=== PATIENT | male | born 1955 | race Caucasian/White ===

== ENCOUNTER 2020-03-25 13:36 | Emergency (ER) | payer OTHER, SELFPAY ==
--- NOTE | ~2020-03-25 | XR_ITS ---
XR tibia fibula RT 2V 03/25/2020 14:11 INDICATION: Right leg pain after injury PROCEDURE: 2 views right tibia/fibula COMPARISON: No prior studies for comparison. FINDINGS: Fracture, dislocation or subluxation is not identified. There are degenerative changes of t he right knee and ankle. The soft tissues appear within normal limits. No foreign bodies are identif ied. IMPRESSION: 1: NO ACUTE BONE OR JOINT ABNORMALITY IDENTIFIED. Reviewed, dictated and finalized at location A.
--- NOTE | ~2020-03-25 | XR_ITS ---
XR forearm RT 2V, XR wrist RT min 3V 03/25/2020 14:11 Indication: Right arm and wrist pain after injury Procedure: 2 views right forearm and 4 views right wrist Comparison: No prior studies for comparison. Findings: There are mild degenerative changes of the first CMC, MCP and IP joints as well as the brigida caphe joint. Arterial calcifications are noted. There are mild degenerative changes of the elbow. No acute fracture or traumatic malalignment. No foreign bodies. Impression: 1: No acute fracture. Reviewed, dictated and finalized at location A. Impression: 1: No acute fracture. Impression: 1: No acute fracture.
[2020-03-25 13:45] VITALS: BP 111/74; PULSE 90; RESP 20; TEMP 36.7; O2SAT 94
--- NOTE | 2020-03-25 14:00 | ED.UPPEXIN ---
HPI - Extremity Injury (Upper) General Chief Complaint: Extremity Injury, Upper <Zuri Espinosa PA-C - Last Filed: 03/25/20 17:30> Stated Complaint: R arm/leg injury <LIS Leblanc Last Filed: 03/25/20 17:30> Time Seen by Provider: 03/25/20 13:47 <LIS Leblanc Last Filed: 03/25/20 17:30> Source: patient <LIS Leblanc Last Filed: 03/25/20 17:30> Mode of arrival: ambulatory <LIS Leblanc Last Filed: 03/25/20 17:30> Limitations: no limitations <LIS Leblanc Last Filed: 03/25/20 17:30> History of Present Illness HPI narrative: This is a 64 year old male that presents to the ER for a fall today. Reports he was helping doing some work on a deck. Reports he tripped and fell and landed on his right side. Reports abrasions to the right forearm and right constantino. Reports he is up to date on tetanus. Denies hitting his head or loss of consciousness. Reports some pain in the right lower leg due to the abrasion. Otherwise denies any other joint pain. Denies numbness or decreased ROM. <Zuri Espinosa PA-C - Last Filed: 03/25/20 17:30> Related Data Allergies/Adverse Reactions: Allergies Allergy/AdvReac Type Severity Reaction Status Date / Time cyclobenzaprine Allergy Unknown Other Verified 03/25/20 13:45 <LIS Leblanc Last Filed: 03/25/20 17:30> [facility] Social History Social History: Social History Gender identity (if verbalized by the patient): Male <LIS Leblanc Last Filed: 03/25/20 17:30> Course Vital Signs Vital signs: Vital Signs Temperature 98.1 F 03/25/20 13:45 Pulse Rate 90 03/25/20 13:45 Respiratory Rate 20 03/25/20 13:45 Blood Pressure 111/74 03/25/20 13:45 Pulse Oximetry 94 03/25/20 13:45 Temperature 98.1 F 03/25/20 13:45 Pulse Rate 90 03/25/20 13:45 Respiratory Rate 20 03/25/20 13:45 Blood Pressure 111/74 03/25/20 13:45 Pulse Oximetry 94 03/25/20 13:45 <Zuri Espinosa PA-C - Last Filed: 03/25/20 17:30> Vital Signs Temperature 98.1 F 03/25/20 13:45 Pulse Rate 90 03/25/20 13:45 Respiratory Rate 20 03/25/20 13:45 Blood Pressure 111/74 03/25/20 13:45 Pulse Oximetry 94 03/25/20 13:45 Temperature 98.1 F 03/25/20 13:45 Pulse Rate 90 03/25/20 13:45 Respiratory Rate 20 03/25/20 13:45 Blood Pressure 111/74 03/25/20 13:45 Pulse Oximetry 94 03/25/20 13:45 <Gisell Joseph MD - Last Filed: 03/30/20 19:02> MDM - Extremity Injury (Upper) MDM Narrative Medical decision making narrative: Patient presents the emergency department after a ground-level fall today with abrasions to the right forearm and right constantino. Patient's vitals are normal. Denies hitting his head or loss of consciousness. Right forearm, right wrist, and right tib-fib x-ray without acute abnormalities. Patient reports he is up-to-date on tetanus. His wounds were cleansed and bandaged. Patient was educated on wound care. He is to follow-up with primary care doctor. He was given warnings to return to the ER <Zuri Espinosa PA-C - Last Filed: 03/25/20 17:30> Imaging Data Radiologist's impression: ITS Impressions Forearm X-Ray 03/25/20 14:22 Impression: 1: No acute fracture. Wrist X-Ray 03/25/20 14:22 Impression: 1: No acute fracture. Tibia/Fibula X-Ray 03/25/20 14:26 IMPRESSION: 1: NO ACUTE BONE OR JOINT ABNORMALITY IDENTIFIED. <Zuri Espinosa PA-C - Last Filed: 03/25/20 17:30> Critical Care Time Critical Care Time Critical Care Time: No <Zuri Espinosa PA-C - Last Filed: 03/25/20 17:30> Discharge Plan Discharge Clinical Impression: Abrasion of forearm, right, Abrasion, right lower leg, initial encounter <Zuri Espinosa PA-C - Last Filed: 03/25/20 17:30> Patient Disposition: Home, Self-Care <Zuri Espinosa PA-C - Last Filed: 03/25/20 17:30>
--- NOTE | 2020-03-25 15:10 | PC.NURSE ---
Pt skin tears cleansed with sterile saline and dressing supplies brought to bedside for PA to dress.
== END 2020-03-25 15:28 | disposition home or self-care (01) ==
PROVIDERS: Emergency Provider General Practice; PCP Nurse Practitioner Family
DX: S50.811A Abrasion of right forearm, initial encounter (principal); S80.811A Abrasion, right lower leg, initial encounter; E78.5 Hyperlipidemia, unspecified; M10.9 Gout, unspecified; I10 Essential (primary) hypertension; E11.9 Type 2 diabetes mellitus without complications; W01.0XXA Fall on same level from slipping, tripping and stumbling without subsequent striking against object, initial encounter
CPT/HCPCS: 73090; 73110; 73590; 99284; A9270

== ENCOUNTER 2020-05-03 12:55 | Inpatient (IN) | payer OTHER, SELFPAY ==
[2020-05-03] VITALS (25 sets, daily range): BP systolic 90–131; BP diastolic 53–92; PULSE 77–102; RESP 15–31; TEMP 35.8–36.7; O2SAT 92–100; BMI 39.7; BMI 39.8
--- NOTE | ~2020-05-03 | US_ITS ---
EXAMINATION: US renal BI DATE: 05/06/2020 14:21 INDICATION: Acute kidney injury TECHNIQUE: Multiple grayscale and Doppler ultrasound images of the kidneys were obtained. COMPARISON: None. FINDINGS: The right kidney measures 11.5 x 4.9 x 6.0 cm. The left kidney measures 10.1 x 6.0 x 5.3 cm . The kidneys demonstrate normal parenchymal echogenicity. There is no hydronephrosis. The bladder is normal. IMPRESSION: 1. Normal kidneys without hydronephrosis. Reviewed, dictated and finalized at location A.
--- NOTE | ~2020-05-03 | US_ITS ---
EXAMINATION: US venous doppler [facility] DATE: 05/04/2020 14:04 INDICATION: Bilateral lower limb swelling TECHNIQUE: Grayscale ultrasound images without and with compression and Doppler ultrasound images of the bilateral lower extremity veins were obtained. COMPARISON: None. FINDINGS: The visualized portions of right common femoral vein, profunda (deep) femoral vein, femoral vein, pop liteal vein, posterior tibial veins, peroneal veins, gastrocnemius vein and greater saphenous vein ou tflow are patent. The visualized portions of left common femoral vein, profunda femoral vein, femoral vein, popliteal v ein, proximal posterior tibial veins, gastrocnemius vein and greater saphenous vein outflow are paten t. The more distal left posterior tibial and peroneal veins at the calf are unable to be clearly visu alized due to patient body habitus and mild subcutaneous edema. IMPRESSION: 1. No deep venous thrombosis in either lower limb. The left posterior tibial and peroneal veins at t he calf were unable to be definitively identified. Reviewed, dictated and finalized at location A. IMPRESSION: 1. No deep venous thrombosis in either lower limb. The left posterior tibial a nd peroneal veins at the calf were unable to be definitively identified.
--- NOTE | ~2020-05-03 | XR_ITS ---
XR chest 1V portable 05/03/2020 13:30 Indication: Shortness of breath. CHF. Procedure: AP portable chest Comparison: No prior studies for comparison. Findings: Cardiomegaly with interstitial edema. No pleural effusion or pneumothorax. No acute osseous abnormality. Impression: 1: Cardiomegaly with interstitial edema. Reviewed, dictated and finalized at location A. Impression: 1: Cardiomegaly with interstitial edema.
--- NOTE | ~2020-05-03 | XR_ITS ---
EXAMINATION: XR chest 2V DATE: 05/09/2020 14:13 INDICATION: Shortness of breath. TECHNIQUE: Frontal and lateral views of the chest were obtained. COMPARISON: Chest single view 05/03/2020, chest CT 08/11/2018, chest 2 views 03/19/2019 FINDINGS: There is chronic mild elevation of left hemidiaphragm. There are reticular opacities in the mid and lower lung zones. No pleural effusion or pneumothorax. Cardiomegaly is noted. There is mild chronic anterior wedging of multiple vertebral bodies. IMPRESSION: 1. Chronic reticular opacities in the mid and lower lung zones, consistent with chronic interstitial lung disease. 2. Cardiomegaly. Reviewed, dictated and finalized at location A.
--- NOTE | 2020-05-03 13:09 | ECG_ITS ---
Measurements Intervals [place] Rate: 84 P: 13 ID: 165 QRS: 247 QRSD: 197 T: -8 QT: 456 QTc: 541 Interpretive Statements SINUS RHYTHM RIGHT AXIS DEVIATION RIGHT BUNDLE BRANCH BLOCK INFERIOR INFARCT, AGE INDETERMINATE BASELINE WANDER- AVF, V1, V6 ABNORMAL ECG Electronically Signed On 05-03-2020 13:32:19 CDT by Germain Bermeo D.O.
[2020-05-03 13:37] LABS: Basophils Absolute Auto 0.1 K/mm3 (0.0-0.1); Basophils Percent Auto 0.7 % (0.2-1.2); Eosinophils Absolute Auto 0.1 K/mm3 (0-0.3); Eosinophils Percent Auto 0.5 % (0-4.4); Hematocrit 36.7 % (42.0-52.0); Hemoglobin 11.3 g/dL (14.0-18.0); Immature Granulocyte Absolute 0.34 K/mm3 (0.00-0.031); Immature Granulocyte Percent A 2.6 % (0-0.5); Lymphocytes Absolute Auto 1.06 K/mm3 (0.9-3.2); Lymphocytes Percent Auto 8.2 % (18.3-44.2); Mean Corpuscular HGB Conc 30.8 g/dl (32-36); Mean Corpuscular Hemoglobin 30.3 pg (26-34); Mean Corpuscular Volume 98.4 fl (80-100); Mean Platelet Volume 11.5 fl (7.4-10.4); Monocytes Absolute Auto 0.9 K/mm3 (0.1-0.6); Monocytes Percent Auto 6.6 % (2.6-8.5); Neutrophils Absolute Auto 10.5 K/mm3 (1.3-6.7); Neutrophils Percent Auto 81.4 % (45.5-73.1); Nucleated Red Blood Cells Perc 0.2 % (0.0-0.2); Platelet Count Result 230 k/mm3 (150-375); Red Blood Count 3.73 M/mm3 (4.6-6.20); Red Cell Distribution Width 15.3 % (11.5-14.5); White Blood Count 12.9 K/mm3 (4.5-10.0)
[2020-05-03 13:48] LABS: Partial Thromboplastin Time 25.7 SECONDS (22.3-36.8)
[2020-05-03 13:51] LABS: Blood Urea Nitrogen 33 mg/dL (9-20); Calcium 9.1 mg/dL (8.4-10.2); Carbon Dioxide 29 mmol/L (22-30); Chloride 99 mmol/L (98-107); Estimated CRCL calculation 67 ml/min; Estimated Glomerular Filt Rate > 60; Glucose 404 mg/dL (75-110); Potassium 5.4 mmol/L (3.4-5.0); Sodium 136 mmol/L (137-145)
[2020-05-03 13:56] LABS: Alveolar/Arterial O2 Gradient 188.1 mmHg; Base Excess ABG 0.9 mEq/l (+/-2.0); Device NASAL CANNULA; Fractional Inspired Oxygen 44 %; HCO3 ABG 26.7 mEq/l (22.0-26.0); Oxygen Content ABG 14.2 %vol (16.0-22.0); Oxygen Saturation ABG 93.5 % (95.0-100.0); Oxyhemoglobin 90.5 % THb (90.0-100.0); PCO2 ABG 48.2 mmHg (35.0-45.0); PO2 ABG 70.7 mmHg (80.0-100.0); PO2 FiO2 Ratio Arterial Blood 1.61 %; Site Drawn LEFT BRACHIAL; Total Hemoglobin 11.1 g/dL (12.0-18.0); pH ABG 7.362 (7.350-7.450)
[2020-05-03 14:03] LABS: NT Pro B Type Natriuretic Pept 735 PG/ML (5-100); Troponin I 0.031 ng/mL (0.000-0.034)
--- NOTE | 2020-05-03 14:07 | ED.GENADULT ---
HPI - General Adult General Chief complaint: Shortness of Breath/Dyspnea Stated complaint: extremity swelling/SOB Time Seen by Provider: 05/03/20 13:35 Source: patient History of Present Illness HPI narrative: Patient is 64 years old white male complaining of shortness of breath, swelling of legs for the last few days. Patient on chronic oxygen 6 L/min. Patient denies any fever, runny nose, sneezing, sore throat, body aches. Related Data Allergies Allergy/AdvReac Type Severity Reaction Status Date / Time cyclobenzaprine AdvReac Other Verified 05/03/20 13:17 [From Flexeril] Review of Systems Review of Systems: Narrative: CONSTITUTIONAL: Denies fever, chills, or sweats. EYES: Denies visual changes, redness, or discharge. ENT: Denies rhinorrhea, congestion, sore throat, or otalgia. CARDIOVASCULAR: Denies chest pain, palpitations, or edema. RESPIRATORY: Shortness of breath GASTROINTESTINAL: Denies abdominal pain, nausea, vomiting, or diarrhea. GENITOURINARY: Denies dysuria or hematuria. SKIN: Swelling legs MUSCULOSKELETAL: Denies back pain, joint pain, or myalgia. NEUROLOGIC: Denies headache, numbness, or weakness. PSYCHIATRIC: Denies anxiety or depression. [facility] Social History Social History Gender identity (if verbalized by the patient): Male Exam Narrative: Exam Narrative: General appearance: Well-developed, well-nourished Skin: Normal color, brownish discoloration of the lower extremity bilaterally, 2+ edema Head: Normocephalic, nontraumatic Eyes: Clear conjunctiva ENT: Oropharynx normal, ears normal, nose normal Neck: Supple, nontender Chest and respiratory: Airway patent, no respiratory distress, no accessory muscle use Heart: Regular rate/rhythm Abdomen: Soft, nontender, no organomegaly, quiet bowel sounds Vascular: Normal peripheral pulses, normal capillary refill. Musculoskeletal: Normal range of motion, nontender back Neurologic: Alert and oriented ?3, [employer] INSPECTOR is normal as tested, no gross motor deficit Course Course Emergency Course: Unchanged, stable Vital Signs Vital signs: Vital Signs Pulse Rate 89 05/03/20 13:10 Respiratory Rate 24 H 05/03/20 13:10 Blood Pressure 117/92 H 05/03/20 13:10 Pulse Oximetry 93 05/03/20 13:10 Pulse Rate 85 05/03/20 13:17 Respiratory Rate 16 05/03/20 13:17 Blood Pressure 117/92 H 05/03/20 13:10 Pulse Oximetry 97 05/03/20 13:17 Medical Decision Making MDM Narrative Medical decision making narrative: Patient had a history of COPD and congestive heart failure. Coming today with shortness of breath and swelling legs. My concern is COPD exacerbation, pneumonia, CHF. My plan to order labs, chest x-ray, blood gas on 6 L. Further plan to follow Differential Diagnosis Differential Diagnosis: Differential diagnosis: COPD exacerbation, pneumonia, CHF acute kidney injury, anemia. Vital Signs Vital Signs: Vital Signs Pulse Rate 89 05/03/20 13:10 Respiratory Rate 24 H 05/03/20 13:10 Blood Pressure 117/92 H 05/03/20 13:10 Pulse Oximetry 93 05/03/20 13:10 Pulse Rate 85 05/03/20 13:17 Respiratory Rate 16 05/03/20 13:17 Blood Pressure 117/92 H 05/03/20 13:10 Pulse Oximetry 97 05/03/20 13:17 Lab Data Result diagrams: 05/03/20 13:31 05/03/20 13:31 Labs: Lab Results 05/03/20 05/03/20 05/03/20 Range/Units 13:31 13:31 13:31 WBC 12.9 H (4.5-10.0) K/mm3 RBC 3.73 L (4.6-6.20) M/mm3 Hgb 11.3 L (14.0-18.0) g/dL Hct 36.7 L (42.0-52.0) % MCV 98.4 (80-100) fl MCH 30.3 (26-34) pg MCHC 30.8 L (32-36) g/dl RDW 15.3 H (11.5-14.5)
[2020-05-03] MEDS: FUROSEMIDE INJ 40 MG/4 ML VIAL 60 MG IV PUSH (14:33)
[2020-05-03] MEDS: NITROGLYCERIN OINTMENT 1 INCH DOSE TRANSDERM (14:33)
[2020-05-03 15:04] LABS: Alanine Aminotransferase 26 U/L (4-50); Albumin Level 4.1 g/dL (3.5-5.1); Alkaline Phosphatase 69 U/L (38-126); Aspartate Amino Transferase 23 U/L (17-59); Bilirubin,Total 0.4 mg/dL (0.2-1.3)
[2020-05-03 17:04] LABS: Troponin I 0.033 ng/mL (0.000-0.034)
--- NOTE | 2020-05-03 17:47 | ADMGEN ---
This patient, Sam Stephen , was admitted to IMU Room 200-01. Patient/family oriented to hospital policies and general routines including ID bracelet, bed and alarms, visiting hours, pain management, procedures, bathroom and other care routines, personal items, smoking policy, room service/diet, and visiting hours. Valuables list has been completed. Information on how to activate the Rapid Response Team has been discussed. Patient/Family are encouraged to report perceived risks to care and to ask questions if they do not understand what they are told or what they should do.
[2020-05-03 19:53] LABS: Troponin I 0.039 ng/mL (0.000-0.034)
--- NOTE | 2020-05-03 20:04 | PM.IMHP ---
H&P: HPI History of Present Illness Chief complaint: Exacerbation of CHF/COPD Narrative: Sam Stephen Sr is a 64 year old male who has a past medical history of having congestive heart failure with the EF around 30% and COPD as well as obstructive sleep apnea. The patient wears chronic oxygen at 6 L per nasal cannula at home. The patient has been short of breath and has increased swelling to his lower extremities. Patient has ulcerated areas on his lower extremity as well due to injuries. He denies any fever or chills. No cough. The patient always get short of breath with exertion. He wears his oxygen at all times. White count is 12.9. H&H 11.3 and 36.7. PH was normal. CO2 was 48.2 which is slightly high. O2 saturation 93.5%. Potassium was found to be 5.4. Blood glucose was found to be 4 4. Troponin 0.031 and then 0.039. BNP is 735. With interstitial edema. Patient initially was given IV Lasix. Date of service 05/03/2020 Review of Systems Review of Systems: All systems reviewed & are unremarkable except as noted in HPI and below Constitutional: Constitutional: Reports as per HPI and Reports no additional constitutional complaints Eyes: Eyes: Reports as per HPI and Reports no additional eye complaints ENT: Reports system reviewed and no additional complaints, except as documented and Reports Normal hearing present Cardiovascular: Cardiovascular: Reports no additional cardiovascular complaints Respiratory: Respiratory: Reports no additional respiratory complaints and Reports no additional respiratory complaints Gastrointestinal: Gastrointestinal: Reports as per HPI and Reports no additional gastrointestinal complaints Musculoskeletal: Musculoskeletal: Reports no additional musculoskeletal complaints Integumentary/Breasts: Skin/Breast: Reports system reviewed and no additional complaints, except as docu and Reports as per HPI Neurologic: Reports system reviewed and no additional complaints, except as documented, Reports as per HPI and Reports Normal hearing present Psychiatric: Psychiatric: Reports no additional psychiatric complaints and Reports as per HPI Endocrine: Endocrine: Reports no additional endocrine complaints Hematologic/Lymphatic: Hematologic/Lymphatic: Reports no additional hematologic/lymphatic complaints Allergic/Immunologic: Allergic/Immunologic: Reports no additional allergic/immunologic complaints [facility] Past Medical History Medical History (Updated 05/03/20 @ 20:17 by Lakia Raya NP) CAD (coronary artery disease) Non STEMI May 2007 Chronic respiratory failure with hypoxia and hypercapnia Congestive heart failure Mixed grade 1 diastolic and EF around 35%. COPD (chronic obstructive pulmonary disease) DM2 (diabetes mellitus, type 2) History of DVT (deep vein thrombosis) Left leg June 21, 2018. HTN (hypertension) with goal to be determined Hyperlipidemia Obstructive sleep apnea Pilonidal cyst Extracted Surgical History Surgical History (Updated 05/03/20 @ 20:17 by Lakia Raya NP) H/O cardiac catheterization 2006 H/O elbow surgery On the left H/O laminectomy 2002 Family History Family History (Updated 05/03/20 @ 20:20 by Lakia Raya NP) Sibling Congestive heart failure Mother Heart disease Hypertension Father Heart disease Emphysema of lung Social History Social History (Updated 05/03/20 @ 20:21 by Lakia Raya NP) Social History: The patient is . 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 So is a DNR. His daughter yanet Rodriguez is a durable power assistant district attorney for healthcare. According to old records he used to drink anywhere from 30-20 beers a week any states he does not do that anymore. The patient smoked up to 2 packs of cigarettes a day for greater than 40 years. He stated that he has quit smoking. 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
[2020-05-03] MEDS: ZOLPIDEM TARTRATE 5 MG TABLET 10 MG PO (20:50)
[2020-05-03] MEDS: DICLOFENAC SOD 75 MG TABLET.EC PO (22:31)
[2020-05-04] VITALS (16 sets, daily range): BP systolic 102–118; BP diastolic 57–90; PULSE 67–86; RESP 12–21; TEMP 36.1–36.7; O2SAT 95–100
--- NOTE | 2020-05-04 | ECHO_ITS ---
Patient Info Name: Sam Stephen Age: 64 years : 1955 Gender: Male Ht: 67 in Wt: 254 lbs BSA: 2.39 m2 HR: 79 bpm BP: 104 / 57 mmHg Heart Rhythm: Sinus Rhythm Technical Quality: Good Exam Date: 05/04/2020 9:18 AM Exam Location: [facility] Patient Status: Outpatient Admit Date: 05/03/2020 Staff Ordering Physician: Lakia Raya NP Director [facility]: [facility], RT Attending Provider: Zonia Bear PA-C Referring Physician: Dorota ZAVALA; Exam Type: CA echo dop color flow w con Study Info Indications I50.9 - Heart failure, unspecified Complete two-dimensional, color flow and Doppler transthoracic echocardiogram is performed with contrast to opacify the left ventricle and to improve the deliniation of the left ventricle endocardial borders. Summary 1. Left ventricular chamber dimension is mildly enlarged. 2. Left ventricular systolic function is moderately reduced, estimated at 35-40%. 3. There is moderately increased left ventricular wall thickness. 4. The left ventricular diastolic function is grade I diastolic dysfunction. 5. Cannot exclude wall motion abnormalities. 6. Right ventricular chamber dimension is mildly enlarged. 7. Left atrial chamber dimension is mildly enlarged. 8. Right atrial chamber dimension is moderately enlarged. 9. The aortic valve is bicuspid. 10. There is mild aortic valve stenosis with a peak velocity of 183.59 cm/s, mean gradient of 7 mmHg, and aortic valve area of 1.83 cm2. 11. The mitral valve has thickened leaflets and calcified annulus. 12. There is mild mitral valve regurgitation. 13. There is mild tricuspid valve regurgitation. 14. Mild pulmonary hypertension, estimated pulmonary arterial systolic pressure is 44 mmHg. Left Ventricle Left ventricular chamber dimension is mildly enlarged. Left ventricular systolic function is moderately reduced, estimated at 35-40%. There is moderately increased left ventricular wall thickness. The left ventricular diastolic function is grade I diastolic dysfunction. Cannot exclude wall motion abnormalities. Right Ventricle Right ventricular chamber dimension is mildly enlarged. Right ventricular systolic function is normal. Left Atria Left atrial chamber dimension is mildly enlarged. Right Atria Right atrial chamber dimension is moderately enlarged. Atrial Septum Intact interatrial septum visualized by color flow imaging. Aortic Valve The aortic valve is bicuspid. There is mild aortic valve stenosis with a peak velocity of 183.59 cm/s, mean gradient of 7 mmHg, and aortic valve area of 1.83 cm2. There is trace aortic valve regurgitation. There is mild aortic valve calcification. Pulmonic Valve The pulmonic valve is not well visualized. There is no pulmonic valve stenosis. There is trace pulmonic regurgitation. Mitral Valve The mitral valve has thickened leaflets and calcified annulus. There is no mitral valve stenosis. There is mild mitral valve regurgitation. Tricuspid Valve The tricuspid valve leaflets are normal. There is no significant tricuspid valve stenosis. There is mild tricuspid valve regurgitation. Mild pulmonary hypertension, estimated pulmonary arterial systolic pressure is 44 mmHg. Pericardium/Pleural The pericardium appears normal. There is small pericardial effusion. Aorta The aortic root size at the sinus of Valsalva is mildly dilated. The prox ascending aorta size is normal. The abdominal aorta size is not well
[2020-05-04 04:41] LABS: Basophils Absolute Auto 0.1 K/mm3 (0.0-0.1); Basophils Percent Auto 0.9 % (0.2-1.2); Eosinophils Absolute Auto 0.2 K/mm3 (0-0.3); Eosinophils Percent Auto 1.6 % (0-4.4); Hematocrit 33.9 % (42.0-52.0); Hemoglobin 10.4 g/dL (14.0-18.0); Immature Granulocyte Absolute 0.37 K/mm3 (0.00-0.031); Immature Granulocyte Percent A 3.2 % (0-0.5); Lymphocytes Absolute Auto 2.37 K/mm3 (0.9-3.2); Lymphocytes Percent Auto 20.6 % (18.3-44.2); Mean Corpuscular HGB Conc 30.7 g/dl (32-36); Mean Corpuscular Hemoglobin 30.1 pg (26-34); Mean Platelet Volume 11.4 fl (7.4-10.4); Monocytes Percent Auto 8.6 % (2.6-8.5); Neutrophils Absolute Auto 7.5 K/mm3 (1.3-6.7); Neutrophils Percent Auto 65.1 % (45.5-73.1); Nucleated Red Blood Cells Perc 0.2 % (0.0-0.2); Platelet Count Result 204 k/mm3 (150-375); Red Blood Count 3.46 M/mm3 (4.6-6.20); White Blood Count 11.5 K/mm3 (4.5-10.0)
[2020-05-04 04:48] LABS: Hemoglobin A1C 9.6 % (<5.7)
[2020-05-04 04:54] LABS: Blood Urea Nitrogen 37 mg/dL (9-20); Calcium 8.5 mg/dL (8.4-10.2); Carbon Dioxide 32 mmol/L (22-30); Chloride 99 mmol/L (98-107); Estimated CRCL calculation 58 ml/min; Estimated Glomerular Filt Rate 51; Glucose 197 mg/dL (75-110); Phosphorus 4.8 mg/dL (2.5-4.5); Potassium 4.2 mmol/L (3.4-5.0); Sodium 135 mmol/L (137-145)
[2020-05-04 08:09] LABS: Glucose Point of Care 260 (65-105)
[2020-05-04] MEDS: ATORVASTATIN 20 MG TABLET PO (08:09)
[2020-05-04] MEDS: METOPROLOL SUCCINATE EXT REL 25 MG TABCR PO (08:09)
[2020-05-04] MEDS: FUROSEMIDE INJ 40 MG/4 ML VIAL IV PUSH ×2 (08:09→17:20)
[2020-05-04] MEDS: allopurinoL 100 MG TABLET PO ×2 (08:09→17:20)
[2020-05-04] MEDS: predniSONE 10 MG TABLET PO (08:09)
[2020-05-04] MEDS: FERROUS SULFATE 324 MG TABLET PO (08:09)
[2020-05-04] MEDS: INSULIN ASPART (*BKC) 100 UNITS/ML SUB-Q ×3 (08:10→17:20)
[2020-05-04] MEDS: PERFLUTREN LIPID MICROSPHERES 1.5 ML VIAL DILUTED TO 10 ML TOTAL VOLUME IV PUSH (09:55)
[2020-05-04] MEDS: SILVERGEL (ELTA) 45 ML 1 APPLIC TOPICAL (10:30)
[2020-05-04 12:18] LABS: Glucose Point of Care 375 (65-105)
--- NOTE | 2020-05-04 15:28 | PM.IMPN ---
Progress Note: A&P Assessment and Plan (1) Congestive heart failure: Code(s): I50.9 - Heart failure, unspecified Status: Chronic Assessment and Plan: -----acute on chronic systolic heart failure. The patient has had a negative fluid balance today. Will place on fluid restriction and continue 40 mg of Lasix b.i.d.. Does not show any significant changes from the prior. He has systolic and diastolic CHF. It does not sound like he adheres to a low-salt diet. Continue O2 (2) Chronic respiratory failure with hypoxia and hypercapnia: Code(s): J96.11 - Chronic respiratory failure with hypoxia; J96.12 - Chronic respiratory failure with hypercapnia Status: Chronic Assessment and Plan: -------The patient chronically wears oxygen at 6 L per nasal cannula. Continue O2 and CPAP when he sleeps. (3) Obstructive sleep apnea: Code(s): G47.33 - Obstructive sleep apnea (adult) (pediatric) Status: Chronic Assessment and Plan: ------The patient brought his own tubing in his nasal pillow. Continue with CPAP. (4) HTN (hypertension) with goal to be determined: Code(s): I10 - Essential (primary) hypertension Status: Chronic Assessment and Plan: -----last blood pressure 118/65. Continue metoprolol and Lasix (5) Hyperlipidemia: Code(s): E78.5 - Hyperlipidemia, unspecified Status: Chronic Assessment and Plan: ------Continue with atorvastatin. (6) COPD (chronic obstructive pulmonary disease): Code(s): J44.9 - Chronic obstructive pulmonary disease, unspecified Status: Chronic Assessment and Plan: ------Patient has interstitial lung disease and he is on mycophenolate which is non formulary and I instructed the patient he can have somebody bring it in. He is also on prednisone, this can cause swelling but does not seem to be the cause since he has been on this for awhile (7) CAD (coronary artery disease): Code(s): I25.10 - Atherosclerotic heart disease of [place] coronary artery without angina pectoris Status: Chronic Assessment and Plan: -----no chest pain at this time. Troponins reviewed. No ACS suspected (8) DM2 (diabetes mellitus, type 2): Code(s): E11.9 - Type 2 diabetes mellitus without complications Status: Chronic Assessment and Plan: -----patient thought he was prediabetic and is surprised by his A1c. We briefly spoke about diabetes and had manage it but he does not seem to understand. I will ask the diabetes educated to see him. I have started him on 10 of Lantus which may need to be increased. For now, will do moderate sliding scale. He is usually on metformin 500 mg b.i.d.. I suspect he will be discharged with a higher dose but we will make sure his kidneys are within range. May consider adding a 2nd agent. (9) Neuropathy: Code(s): G62.9 - Polyneuropathy, unspecified Status: Acute Assessment and Plan: -----the pain in his feet sound consistent with neuropathy. Will start gabapentin and work on glucose control. He was educated about foot checks and should follow-up with his primary care physician as he may need an increase in his gabapentin dose eventually. Time Spent With Patient Time with patient: 25 - 35 minutes Subjective Date/time seen: 05/04/20 15:28 Interval history: Pt is a 64-year-old male here for CHF exacerbation and lower extremity pain. Patient was seen today and states his pain and swelling has not really improved. He states that the pain in his legs is constant and his sensation is decreased as well. He has never been diagnosed with neuropathy but after explaining neuropathy, he thinks that is might be what's going on. He also mentions that his right hand has been swelling as well as his abdomen. His scrotum has not swelled up which she usually does when he is in CHF exacerbation. The patient told
[2020-05-04] MEDS: GABAPENTIN 300 MG CAPSULE PO (17:19)
[2020-05-04] MEDS: DICLOFENAC SOD 75 MG TABLET.EC PO (17:23)
[2020-05-04 17:35] LABS: Add Urine Microscopic? YES; Appearance Urine Clear (Clear); Bilirubin Urine Negative (Negative); Blood Urine Negative (Negative); Color Urine Yellow (Yellow); Glucose Urine UA 3+ mg/dL (Negative); Ketones Urine Negative (Negative); Leukocyte Esterase Ur Negative LEU/UL (Negative); Mucus Urine Rare /lpf; Nitrate Urine Negative (Negative); Protein Urine Negative (Negative); RBC Urine 0-2 /hpf (0-2); Specific Grav Ur 1.016 (1.001-1.035); Urobilinogen Urine Negative mg/dL (<2.0)
--- NOTE | 2020-05-04 18:25 | PC.NURSE ---
This patient, Sam Stephen Sr., was transferred to [facility] on 05/04/20 at 1825. Personal belongings sent with patient. Report given to ABEL Montenegro. Appropriate documentation sent with patient.
--- NOTE | 2020-05-04 18:33 | PC.NURSE ---
Transfer from IMU on today,No complaints voiced. Instructed to call for assistance as needed,call light in reach. Oriented to unit.
[2020-05-04] MEDS: INSULIN GLARGINE (*BKC) 100 UNITS/ML 10 UNITS SUB-Q (20:37)
[2020-05-04 20:40] LABS: Glucose Point of Care 308 (65-105)
[2020-05-04 20:45] LABS: Glucose Point of Care 268 (65-105)
[2020-05-04] MEDS: ZOLPIDEM TARTRATE 5 MG TABLET 10 MG PO (22:17)
[2020-05-05] VITALS (15 sets, daily range): BP systolic 92–115; BP diastolic 58–81; PULSE 72–96; RESP 16–22; TEMP 36.4–37.1; O2SAT 93–99; BMI 39.7
[2020-05-05 04:48] LABS: Hematocrit 35.1 % (42.0-52.0); Hemoglobin 10.9 g/dL (14.0-18.0); Mean Corpuscular HGB Conc 31.1 g/dl (32-36); Mean Corpuscular Hemoglobin 30.3 pg (26-34); Mean Corpuscular Volume 97.5 fl (80-100); Platelet Count Result 189 k/mm3 (150-375)
[2020-05-05 05:02] LABS: Blood Urea Nitrogen 42 mg/dL (9-20); Calcium 8.4 mg/dL (8.4-10.2); Carbon Dioxide 34 mmol/L (22-30); Chloride 97 mmol/L (98-107); Estimated CRCL calculation 51 ml/min; Estimated Glomerular Filt Rate 44; Glucose 208 mg/dL (75-110); Magnesium 2.1 mg/dL (1.6-2.3); Phosphorus 5.1 mg/dL (2.5-4.5); Potassium 4.4 mmol/L (3.4-5.0); Sodium 135 mmol/L (137-145)
[2020-05-05 07:58] LABS: Glucose Point of Care 188 (65-105)
[2020-05-05] MEDS: FERROUS SULFATE 324 MG TABLET PO (09:00)
[2020-05-05] MEDS: SILVERGEL (ELTA) 45 ML 1 APPLIC TOPICAL (09:00)
[2020-05-05] MEDS: DICLOFENAC SOD 75 MG TABLET.EC PO ×2 (09:00→17:12)
[2020-05-05] MEDS: FUROSEMIDE INJ 40 MG/4 ML VIAL IV PUSH ×2 (09:01→17:12)
[2020-05-05] MEDS: predniSONE 10 MG TABLET PO (09:01)
[2020-05-05] MEDS: ATORVASTATIN 20 MG TABLET PO ×2 (09:01→13:45)
[2020-05-05] MEDS: GABAPENTIN 300 MG CAPSULE PO ×3 (09:01→21:03)
[2020-05-05] MEDS: allopurinoL 100 MG TABLET PO ×2 (09:01→17:11)
[2020-05-05] MEDS: METOPROLOL SUCCINATE EXT REL 25 MG TABCR PO ×2 (09:02→13:45)
--- NOTE | 2020-05-05 10:37 | PM.IMPN ---
Progress Note: A&P Assessment and Plan (1) Congestive heart failure: Code(s): I50.9 - Heart failure, unspecified Status: Chronic Assessment and Plan: -----acute on chronic systolic heart failure. The patient has had a negative fluid balance today but still very swollen. His kidney function is worsening as well so I am going to ask Nephrology their recommendations on further diuretic therapy. I have also consult to cardiology due to him having nonsustained V-tach. The patient is a DNR, but may want to discuss these findings with Cardiology. Continue fluid restriction and Lasix at this time. Echo Does not show any significant changes from the prior. He has systolic and diastolic CHF. It does not sound like he adheres to a low-salt diet. Continue O2 (2) Chronic respiratory failure with hypoxia and hypercapnia: Code(s): J96.11 - Chronic respiratory failure with hypoxia; J96.12 - Chronic respiratory failure with hypercapnia Status: Chronic Assessment and Plan: -------The patient chronically wears oxygen at 6 L per nasal cannula. Continue O2 and CPAP when he sleeps. (3) Obstructive sleep apnea: Code(s): G47.33 - Obstructive sleep apnea (adult) (pediatric) Status: Chronic Assessment and Plan: ------The patient brought his own tubing in his nasal pillow. Continue with CPAP. (4) HTN (hypertension) with goal to be determined: Code(s): I10 - Essential (primary) hypertension Status: Chronic Assessment and Plan: -----last blood pressure 115/65. Continue metoprolol and Lasix (5) Hyperlipidemia: Code(s): E78.5 - Hyperlipidemia, unspecified Status: Chronic Assessment and Plan: ------Continue with atorvastatin. (6) COPD (chronic obstructive pulmonary disease): Code(s): J44.9 - Chronic obstructive pulmonary disease, unspecified Status: Chronic Assessment and Plan: ------Patient has interstitial lung disease and he is on mycophenolate which is non formulary and I instructed the patient he can have somebody bring it in. He is also on prednisone, this can cause swelling but does not seem to be the cause since he has been on this for awhile (7) CAD (coronary artery disease): Code(s): I25.10 - Atherosclerotic heart disease of [place] coronary artery without angina pectoris Status: Chronic Assessment and Plan: -----no chest pain at this time. Troponins reviewed. No ACS suspected (8) DM2 (diabetes mellitus, type 2): Code(s): E11.9 - Type 2 diabetes mellitus without complications Status: Chronic Assessment and Plan: -----patient thought he was prediabetic and is surprised by his A1c. We briefly spoke about diabetes and had manage it but he does not seem to understand. I will ask the diabetes educated to see him. I have started him on 10 of Lantus which may need to be increased. For now, will do moderate sliding scale. He is usually on metformin 500 mg . I suspect he will be discharged with a higher dose but we will make sure his kidneys are within range. May consider adding a 2nd agent. (9) Neuropathy: Code(s): G62.9 - Polyneuropathy, unspecified Status: Acute Assessment and Plan: -----the pain in his feet felt to be consistent with neuropathy. Will increase gabapentin and work on glucose control. He was educated about foot checks and should follow-up with his primary care physician Subjective Date/time seen: 05/05/20 10:37 Interval history: Pt is a 64-year-old male here for CHF exacerbation and lower extremity pain. Patient was seen today and states his legs are still swollen he still having pain. He has had no additional shortness of breath, no chest pain, no palpitations or lightheadedness/dizziness. He is discouraged because his leg pain has not improved. We talked about gabapentin and how it works and that we ca
[2020-05-05 11:20] LABS: Glucose Point of Care 343 (65-105)
[2020-05-05] MEDS: INSULIN ASPART (*BKC) 100 UNITS/ML SUB-Q ×2 (12:05→18:12)
--- NOTE | 2020-05-05 12:22 | PM.CNCAR ---
Assessment and Plan Assessment and plan (1) CAD (coronary artery disease): Code(s): I25.10 - Atherosclerotic heart disease of [place] coronary artery without angina pectoris Status: Chronic Assessment and Plan: unfortunately previously deemed not a CABG candidate. (2) Nonsustained ventricular tachycardia: Code(s): I47.2 - Ventricular tachycardia Status: Acute Assessment and Plan: will check a free T4 level. Repeat EKG now. I Am going to increase his metoprolol succinate to 50 mg daily. (3) Ischemic cardiomyopathy: Code(s): I25.5 - Ischemic cardiomyopathy Status: Acute Assessment and Plan: continue his meds. I am uncertain as to why he is not on UMER-inhibitor but possibly due to renal function. Will defer this to his primary superintendent police. (4) Congestive heart failure: Code(s): I50.9 - Heart failure, unspecified Status: Chronic Assessment and Plan: Continue diuresis (5) Hyperlipidemia: Code(s): E78.5 - Hyperlipidemia, unspecified Status: Chronic Assessment and Plan: will increase his atorvastatin to 40 mg daily History of Present Illness History of Present Illness Consult date/time: 05/05/20 12:22 Requesting physician: Zonia Bear PA-C Consult reason: Other ( nonsustained ventricular tachycardia) Reason For Visit: Exacerbation of CHF/COPD Narrative: date of service 05/05/2020: Reason for consultation nonsustained ventricular tachycardia History: patient is a 64-year-old male who was admitted to the hospital because of heart failure. He has an ejection fraction which is known to be around 30% and significant coronary disease and COPD with sleep apnea. Reportedly he was supposed to have a bypass surgery above was felt to be too sick and had significant lung issues that prevented him from proceeding with CABG. He follows with Cardiology at [facility]. He was admitted to this hospital because of worsening shortness of breath. He also is having some worsening swelling. Had some ulcerations on his lower extremities. He was initiated on IV diuretics. His edema has not improved significantly.While on campus monitor was noted that he had some episodes of nonsustained ventricular tachycardia. He was asymptomatic at the time. Electrolytes were checked and appropriately replaced. TSH was okay. Echocardiogram was personally reviewed showing ejection fraction 35-40%. He otherwise has been feeling okay and denies any recent chest pain, syncope, presyncope, paroxysmal nocturnal dyspnea or orthopnea. Review of Systems Review of Systems: All systems reviewed & are unremarkable except as noted in HPI and below Constitutional: Constitutional: Denies chills and Reports weakness Eyes: Eyes: Denies blurry vision ENT: Denies Normal hearing present Cardiovascular: Cardiovascular: Denies chest pain and Reports pedal edema Respiratory: Respiratory: Reports dyspnea on exertion Gastrointestinal: Gastrointestinal: Denies abdominal pain Genitourinary: Genitourinary: Denies dysuria Musculoskeletal: Musculoskeletal: Denies neck pain Integumentary/Breasts: Skin/Breast: Reports wounds Neurologic: Denies headache(s) Psychiatric: Psychiatric: Denies anxiety and Denies confusion Endocrine: Endocrine: Denies excessive sweating and Denies fatigue Hematologic/Lymphatic: Hematologic/Lymphatic: Denies easy bleeding and Denies easy bruising Allergic/Immunologic: Allergic/Immunologic: Denies GI upset with certain foods and Denies lip swelling PMFSH Past Medical History Medical History CAD (coronary artery disease) Non STEMI May 2007 Chronic respiratory failure with hypoxia and hypercapnia Congestive heart failure Mixed grade 1 diastolic and EF around 35%. COPD (chronic obstructive pulmonary disease) DM2 (diabetes mellitus, type 2) History of DVT (deep vein t
--- NOTE | 2020-05-05 12:49 | ECG_ITS ---
Measurements Intervals [place] Rate: 83 P: 38 TX: 175 QRS: 265 QRSD: 189 T: 40 QT: 452 QTc: 533 Interpretive Statements SINUS RHYTHM RIGHT AXIS DEVIATION RIGHT BUNDLE BRANCH BLOCK INFERIOR INFARCT, AGE INDETERMINATE ABNORMAL ECG Electronically Signed On 05-05-2020 13:09:11 CDT by Germain Bermeo D.O.
--- NOTE | 2020-05-05 15:00 | PC.NURSE ---
spoke with patient about have family bring in home medications not supplied by our pharmacy. pt states he will have someone bring in meds
[2020-05-05 15:06] LABS: T4 Thyroxine 4.82 ug/dL (5.53-11.0)
--- NOTE | 2020-05-05 15:45 | PM.CNNEP ---
Assessment and Plan Assessment and plan (1) YANELIS (acute kidney injury): Code(s): N17.9 - Acute kidney failure, unspecified Status: Acute (2) CHF exacerbation: Code(s): I50.9 - Heart failure, unspecified Status: Acute (3) Ischemic cardiomyopathy: Code(s): I25.5 - Ischemic cardiomyopathy Status: Acute (4) Nonsustained ventricular tachycardia: Code(s): I47.2 - Ventricular tachycardia Status: Acute (5) COPD (chronic obstructive pulmonary disease): Code(s): J44.9 - Chronic obstructive pulmonary disease, unspecified Status: Chronic (6) Obstructive sleep apnea: Code(s): G47.33 - Obstructive sleep apnea (adult) (pediatric) Status: Chronic (7) Hypertension: Code(s): I10 - Essential (primary) hypertension Status: Chronic Assessment and Plan: . Additional Plan Sam has what appears to be in acute kidney injury/ acute renal failure based on the labs in the last 24-48 hours. On admission, his creatinine was well within normal limits with the use of IV diuretics, his creatinine has been slowly rising. More concerning is the fact that despite the use of IV diuretics, he has not had a significant diuresis in general. Given his history, he has multiple risk factors for kidney disease in general. He has hypertension, newly diagnosed diabetes but it is very possible he has had this condition for an extensive. Time and he was unaware of it, obstructive sleep apnea, and chronic systolic and diastolic heart failure with an acute exacerbation at this time as well. Hence, is very possible the may have some underlying chronic renal insufficiency given his extensive risk factors and his this hospitalization has brought it to light. I wonder if perhaps maybe his admission creatinine was a dilutional value and the rise in his creatinine is somewhat of an appropriate response in effort to achieve some type of euvolemia. Unfortunately, despite the use of IV diuretics, his volume status has not improved all that significantly. Another possibility of course is that maybe he is intravascularly dry despite his outward physical exam that would suggest fluid overload. Another consideration would be that he has a component of cardiorenal syndrome from his ischemic cardiomyopathy resulting in chronic prerenal azotemia due to his depressed ejection fraction worsened by the need for IV diuretic therapy in general. For further evaluation, I will check a renal ultrasound, urine electrolytes, urine eosinophils, and check a random urine protein creatinine ratio to assess for proteinuria particularly given his newly diagnosed diabetes and the possibility of nephrotic range proteinuria although his initial urinalysis was not significant for any protein the urine at that time. I will increase his Lasix to 60 mg b.i.d. in as a one time dose of metolazone to see if this would augment his urine output and at the same time maintain stability in his renal function. I will continue follow patient with you while remains hospitalized and make further recommendations depending on his hospital course. Thank you for allowing me to participate in the care this patient. History of Present Illness Reason for Consult Consult date: 05/05/20 Reason for consult: acute renal failure Chief Complaint Chief complaint: Exacerbation of CHF/COPD History of Present Illness Narrative: The patient is a 64-year-old male with a past medical history as outlined below who presented to [facility] ER with complaints of shortness of breath. The patient's shortness of breath had been progressively getting worse in associated with some lower extremity edema. He has a known history of a significant cardiomyopathy with an ejection fraction around 30%. This is further complicated by his known COPD, interstitial lung disease, and obstructive sleep apnea. Apparently, he was supposed to have coronary [place]
[2020-05-05 16:46] LABS: Glucose Point of Care 342 (65-105)
[2020-05-05] MEDS: INSULIN GLARGINE (*BKC) 100 UNITS/ML 10 UNITS SUB-Q (21:03)
[2020-05-05 21:10] LABS: Glucose Point of Care 255 (65-105)
[2020-05-05] MEDS: ZOLPIDEM TARTRATE 5 MG TABLET 10 MG PO (22:37)
[2020-05-05 23:11] LABS: Creatinine Urine 169.1 mg/dL
[2020-05-06] VITALS (13 sets, daily range): BP systolic 85–111; BP diastolic 52–70; PULSE 65–90; RESP 12–20; TEMP 36–36.4; O2SAT 92–99
[2020-05-06] MEDS: GABAPENTIN 300 MG CAPSULE PO ×3 (05:41→21:29)
[2020-05-06] MEDS: SILVERGEL (ELTA) 45 ML 1 APPLIC TOPICAL (08:16)
[2020-05-06] MEDS: ATORVASTATIN 40 MG TABLET PO (08:16)
[2020-05-06] MEDS: predniSONE 10 MG TABLET PO (08:16)
[2020-05-06] MEDS: METOPROLOL SUCCINATE EXT REL 50 MG TABCR PO (08:17)
[2020-05-06] MEDS: allopurinoL 100 MG TABLET PO ×2 (08:17→16:42)
[2020-05-06] MEDS: FERROUS SULFATE 324 MG TABLET PO (08:17)
[2020-05-06] MEDS: FUROSEMIDE INJ 100 MG/10 ML VIAL 60 MG IV PUSH ×2 (08:19→16:42)
[2020-05-06] MEDS: metOLazone 2.5 MG TABLET PO (08:19)
[2020-05-06 08:20] LABS: Albumin Level 4.2 g/dL (3.5-5.1); Blood Urea Nitrogen 44 mg/dL (9-20); Carbon Dioxide 35 mmol/L (22-30); Chloride 96 mmol/L (98-107); Estimated CRCL calculation 62 ml/min; Estimated Glomerular Filt Rate 56; Glucose 176 mg/dL (75-110); Phosphorus 4.5 mg/dL (2.5-4.5); Potassium 4.4 mmol/L (3.4-5.0); Sodium 138 mmol/L (137-145)
[2020-05-06 08:58] LABS: Glucose Point of Care 185 (65-105)
--- NOTE | 2020-05-06 10:08 | PM.PNCARD ---
Progress Note: A&P Assessment and Plan (1) CAD (coronary artery disease): Code(s): I25.10 - Atherosclerotic heart disease of [place] coronary artery without angina pectoris Status: Chronic Assessment and Plan: unfortunately previously deemed not a CABG candidate. not on aspirin for? Reasons. Will add low-dose 81 mg daily (2) Nonsustained ventricular tachycardia: Code(s): I47.2 - Ventricular tachycardia Status: Acute Assessment and Plan: continue metoprolol (3) Ischemic cardiomyopathy: Code(s): I25.5 - Ischemic cardiomyopathy Status: Acute Assessment and Plan: continue his meds. I am uncertain as to why he is not on UMER-inhibitor but possibly due to renal function. Will defer this to his primary compensation adjuster. (4) Congestive heart failure: Code(s): I50.9 - Heart failure, unspecified Status: Chronic Assessment and Plan: Continue diuresis per nephrology (5) Hyperlipidemia: Code(s): E78.5 - Hyperlipidemia, unspecified Status: Chronic Assessment and Plan: continue statin Subjective Date/time seen: 05/06/20 10:08 Interval history: chief complaint: Edema/ shortness of breath date of service 05/06/2020: he is feeling a little better. He denies any shortness of breath or chest pain. Edema is improved. Review of Systems Review of Systems: All systems reviewed & are unremarkable except as noted in HPI and below Constitutional: Constitutional: Denies chills, Denies excessive sweating, Denies fatigue, Denies headache(s) and Reports weakness Eyes: Eyes: Denies blurry vision ENT: Denies Normal hearing present, Denies headache(s), Denies lip swelling and Denies neck pain Cardiovascular: Cardiovascular: Denies chest pain, Reports pedal edema and Reports dyspnea on exertion Respiratory: Respiratory: Reports dyspnea on exertion Gastrointestinal: Gastrointestinal: Denies abdominal pain Genitourinary: Genitourinary: Denies dysuria Musculoskeletal: Musculoskeletal: Denies neck pain Integumentary/Breasts: Skin/Breast: Reports wounds Neurologic: Denies Normal hearing present, Denies confusion, Denies headache(s) and Reports weakness Psychiatric: Psychiatric: Denies anxiety and Denies confusion Endocrine: Endocrine: Denies excessive sweating and Denies fatigue Hematologic/Lymphatic: Hematologic/Lymphatic: Denies easy bleeding and Denies easy bruising Allergic/Immunologic: Allergic/Immunologic: Denies GI upset with certain foods and Denies lip swelling Exam Narrative: Exam Narrative: Alert and oriented appears stated age Const: General: no acute distress; No confusion Orientation/consciousness: No confusion HENMT: General nose exam: Normal nares present Other: nasal cannula in place Eyes: Sclera: sclerae normal Neck: Neck: no JVD Chest: Other: no reproducible chest wall pain to palpation Resp: Auscultation: diminished lung sounds Cardio: Rate: regular rate Rhythm: regular rhythm Skin: General skin exam: normal color Other: scabs are noted to lower extremities Neuro: General: No confusion Cranial nerves: No Normal hearing present Cognition (Neuro): normal cognition Speech: normal speech Extrem: General: pedal edema Psych: Affect: normal affect Objective Data Vital Signs Vital Signs: Vital Signs - 24 hr 05/05/20 12:00 05/05/20 13:45 05/05/20 14:00 Temperature 37.1 C Pulse Rate 92 80 80 Respiratory Rate 20 Blood Pressure 98/58 L Pulse Oximetry 94 05/05/20 16:00 05/05/20 18:00 05/05/20 20:00 Temperature 36.8 C 36.6 C Pulse Rate 78 77 73 Respiratory Rate 20 18 Blood Pressure 92/66 L 101/65 Pulse Oximetry 95 96 05/05/20 20:06 05/05/20 23:38 05/06/20 00:00 Temperature 36.2 C L Pulse Rate 72 65 Respiratory Rate 19 20 Blood Pressure 85/52 L Pulse Oximetry 96 95 92 05/06/20 01:44 05/06/20 04:00 05/06/20 08:00 Temperature 36.2 C L Pulse R
[2020-05-06 10:22] LABS: Creatinine Urine 56.7 mg/dL; Total Protein Urine Random 10 mg/dL
[2020-05-06 10:26] LABS: Sodium Urine Random 96 meq/L
[2020-05-06 11:30] LABS: Glucose Point of Care 365 (65-105)
--- NOTE | 2020-05-06 11:55 | PM.PNNEP ---
Progress Note: A&P Assessment and Plan (1) YANELIS (acute kidney injury): Code(s): N17.9 - Acute kidney failure, unspecified Status: Acute Assessment and Plan: creatinine better today (not clear why?) urine electrolytes noted but difficult to interpret since on diuretics no evidence of significant proteinuria follow creatinine with higher dose lasix + one time dose of metolazone follow-up on renal ultrasound (2) CHF exacerbation: Code(s): I50.9 - Heart failure, unspecified Status: Acute Assessment and Plan: clinically improving follow I/Os, daily weights, and respiratory status (3) Ischemic cardiomyopathy: Code(s): I25.5 - Ischemic cardiomyopathy Status: Acute Assessment and Plan: repeat Echo here demonstrates relative stability possibly playing a role with #1 (mild degree of cardiorenal syndrome?) Cardiology following (4) Nonsustained ventricular tachycardia: Code(s): I47.2 - Ventricular tachycardia Status: Acute Assessment and Plan: Cardiology following (5) Hypertension: Code(s): I10 - Essential (primary) hypertension Status: Chronic Assessment and Plan: reasonably controlled perhap too well-controlled leading to possible renal hypoperfusion(?) follow trend of hemodynamics Will continue to follow. Subjective Date/time seen: 05/06/20 11:55 He states he feels a little better today; still feels he is not urinating as much as he should be with IV diuretics; no other acute issues or complaints voiced at this time. Exam Narrative: Exam Narrative: General: WD/WN male in NAD Heart: normal S1 and S2; no rub Lungs: decreased at bases Abdomen: soft, nontender, nondistended, positive bowel sounds Extremities: no cyanosis or clubbing; 1+ edema Skin: warm and dry Objective Data Vital Signs Vital Signs: Vital Signs Temp Pulse Resp BP Pulse Ox 05/06/20 10:10 36.3 C L 78 18 108/67 96 05/06/20 09:12 97 05/06/20 08:17 70 05/06/20 08:00 73 05/06/20 04:00 36.2 C L 78 18 111/70 97 05/06/20 01:44 76 12 92 05/06/20 00:00 36.2 C L 65 20 85/52 L 92 05/05/20 23:38 72 19 95 06/12/20 20:06 96 05/05/20 20:00 36.6 C 73 18 101/65 96 05/05/20 18:00 36.8 C 77 20 92/66 L 95 05/05/20 16:00 78 05/05/20 14:00 37.1 C 80 20 98/58 L 94 05/05/20 13:45 80 05/05/20 12:00 92 Intake/Output Intake/Output: Intake & Output 05/03/20 05/04/20 05/05/20 05/06/20 23:59 23:59 23:59 23:59 Intake Total 300 1580 1500 480 Output Total 2225 1400 Balance 300 -645 100 480 Meds/Results Medications: Active Medications Generic Name Dose Route Start Last Admin Trade Name Freq PRN Reason Stop Dose Admin Hydrocodone Bitart/Acetaminophen 1 tab 05/03/20 22:44 05/05/20 06:39 Jamul 5-325 Mg PO 1 tab Q6H PRN Administration Pain Rated 4-6 Allopurinol 100 mg 05/04/20 09:00 05/06/20 08:17 Zyloprim PO 100 mg BID JANNET Administration Aspirin 81 mg 05/07/20 09:00 Aspirin Ec PO QAM JANNET Atorvastatin Calcium 40 mg 05/06/20 09:00 05/06/20 08:16 Lipitor PO 40 mg DAILY JANNET Administration Dextrose 12.5 gm 05/03/20 20:09 Dextrose 50% Syringe IV PUSH PRN PRN Hypoglycemia Protocol Diclofenac Sodium 75 mg 05/03/20 20:10 05/05/20 17:12 Voltaren Ec Tab PO 75 mg BID PRN Administration Pain Ferrous Sulfate 324 mg 05/04/20 09:00 05/06/20 08:17 Ferrous Sulfate PO 324 mg DAILY JANNET Administration Furosemide 60 mg 05/06/20 09:00 05/06/20 08:19 Lasix Inj IV PUSH 60 mg BID JANNET Administration Gabapentin 300 mg 05/05/20 14:00 05/06/20 05:41 Neurontin PO 300 mg Q8HR JANNET Administration Glucagon 1 mg 05/03/20 20:09 Glucagon For Inj IM PRN PRN Hypoglycemia Protocol Glucose 15 gm 05/03/20 20:09 Glutose 15 PO NH
[2020-05-06] MEDS: INSULIN ASPART (*BKC) 100 UNITS/ML SUB-Q ×2 (11:56→17:54)
--- NOTE | 2020-05-06 12:30 | PC.NURSE ---
Sent patient's home medications down to pharmacy to be verified.
--- NOTE | 2020-05-06 12:58 | PM.IMPN ---
Progress Note: A&P Assessment and Plan (1) Congestive heart failure: Code(s): I50.9 - Heart failure, unspecified Status: Chronic Assessment and Plan: -----acute on chronic systolic heart failure. The patient had a positive fluid balance yesterday but has lost 2 lb since being here. He showed slight improvement today. Continue on 60 mg b.i.d. of Lasix for now, will order strict I&Os. If he does not diurese again today, may consider adjustment medications. I spoke with Nephrology about this. His kidney function is a little better today. Echo Does not show any significant changes from the prior. He has systolic and diastolic CHF. It does not sound like he adheres to a low-salt diet. Continue O2 (2) Chronic respiratory failure with hypoxia and hypercapnia: Code(s): J96.11 - Chronic respiratory failure with hypoxia; J96.12 - Chronic respiratory failure with hypercapnia Status: Chronic Assessment and Plan: -------The patient chronically wears oxygen at 6 L per nasal cannula. Continue O2 and CPAP when he sleeps. (3) Obstructive sleep apnea: Code(s): G47.33 - Obstructive sleep apnea (adult) (pediatric) Status: Chronic Assessment and Plan: ------The patient brought his own tubing in his nasal pillow. Continue with CPAP. (4) HTN (hypertension) with goal to be determined: Code(s): I10 - Essential (primary) hypertension Status: Chronic Assessment and Plan: -----last blood pressure 108/67. Continue metoprolol and Lasix (5) Hyperlipidemia: Code(s): E78.5 - Hyperlipidemia, unspecified Status: Chronic Assessment and Plan: ------Continue with atorvastatin. (6) COPD (chronic obstructive pulmonary disease): Code(s): J44.9 - Chronic obstructive pulmonary disease, unspecified Status: Chronic Assessment and Plan: ------Patient has interstitial lung disease and he is on mycophenolate which is non formulary and I instructed the patient he can have somebody bring it in. He is also on prednisone, this can cause swelling but does not seem to be the cause since he has been on this for awhile (7) CAD (coronary artery disease): Code(s): I25.10 - Atherosclerotic heart disease of [place] coronary artery without angina pectoris Status: Chronic Assessment and Plan: -----no chest pain at this time. Troponins reviewed. No ACS suspected (8) DM2 (diabetes mellitus, type 2): Code(s): E11.9 - Type 2 diabetes mellitus without complications Status: Chronic Assessment and Plan: -----patient thought he was prediabetic and is surprised by his A1c. He said he is overwhelmed by this diagnosis but learned a lot from the religious educator. Lantus increased. For now, will do moderate sliding scale. He is usually on metformin 500 mg . I suspect he will be discharged with a higher dose but we will make sure his kidneys are within range. May consider adding a 2nd agent. (9) Neuropathy: Code(s): G62.9 - Polyneuropathy, unspecified Status: Acute Assessment and Plan: -----the pain in his feet felt to be consistent with neuropathy. Continue gabapentin and work on glucose control. He was educated about foot checks and should follow-up with his primary care physician Subjective Date/time seen: 05/06/20 12:58 Interval history: Pt is a 64-year-old male here for CHF exacerbation and lower extremity pain. Patient was seen today and states he feels about the same as yesterday. He thinks the swelling has not improved and he is not urinating as much as he usually does on Lasix. He said the leg pain went away yesterday but has come back today. Pt denies nausea, vomiting, fevers, chills, constipation, diarrhea, chest pain, sob, or abdominal pain. Exam Narrative: Exam Narrative: General: Overweight patient resting comfortably in the chair in no
--- NOTE | 2020-05-06 13:12 | PHAR ---
HOME MEDICATIONS VERIFIED BY PHARMACY: SANTANA ELLIPTA (UMECLIDINIUM) 62.5 MCG INHALER MYCOPHENOLATE 500MG TABLETS TAKE 3 TABLETS PO TWICE DAILY RX#[id number]
[2020-05-06 17:52] LABS: Glucose Point of Care 242 (65-105)
[2020-05-06] MEDS: INSULIN GLARGINE (*BKC) 100 UNITS/ML 13 UNITS SUB-Q (21:42)
[2020-05-06 22:14] LABS: Glucose Point of Care 234 (65-105)
[2020-05-06] MEDS: ZOLPIDEM TARTRATE 5 MG TABLET 10 MG PO (22:41)
[2020-05-07] VITALS (17 sets, daily range): BP systolic 107–116; BP diastolic 48–69; PULSE 69–100; RESP 16–20; TEMP 36.1–36.7; O2SAT 94–100
[2020-05-07] MEDS: COLCHICINE 0.6 MG TABLET PO (01:57)
[2020-05-07] MEDS: COLCHICINE 0.6 MG TABLET 1.2 MG PO (01:57)
[2020-05-07] MEDS: GABAPENTIN 300 MG CAPSULE PO ×3 (06:23→21:04)
--- NOTE | 2020-05-07 06:30 | PC.NURSE ---
pt requested his fluid allowance be 200ml for breakfast, and 500 ml per shift, no fluids with lunch and dinner. pt wants his water pitcher filled every shift
[2020-05-07 07:03] LABS: Hematocrit 34.7 % (42.0-52.0); Hemoglobin 10.9 g/dL (14.0-18.0)
[2020-05-07 07:34] LABS: Blood Urea Nitrogen 48 mg/dL (9-20); Calcium 8.5 mg/dL (8.4-10.2); Carbon Dioxide 37 mmol/L (22-30); Chloride 94 mmol/L (98-107); Estimated CRCL calculation 67 ml/min; Estimated Glomerular Filt Rate > 60; Glucose 248 mg/dL (75-110); Potassium 4.2 mmol/L (3.4-5.0); Sodium 135 mmol/L (137-145); Uric Acid 9.5 mg/dL (3.5-8.5)
[2020-05-07 07:42] LABS: Glucose Point of Care 216 (65-105)
[2020-05-07] MEDS: INSULIN ASPART (*BKC) 100 UNITS/ML SUB-Q ×3 (07:44→18:29)
[2020-05-07] MEDS: allopurinoL 100 MG TABLET PO ×2 (09:18→16:55)
[2020-05-07] MEDS: ASPIRIN 81 MG ENTERIC TABLET PO (09:18)
[2020-05-07] MEDS: predniSONE 10 MG TABLET PO (09:18)
[2020-05-07] MEDS: FERROUS SULFATE 324 MG TABLET PO (09:18)
[2020-05-07] MEDS: SILVERGEL (ELTA) 45 ML 1 APPLIC TOPICAL (09:18)
[2020-05-07] MEDS: ATORVASTATIN 40 MG TABLET PO (09:18)
[2020-05-07] MEDS: FUROSEMIDE INJ 100 MG/10 ML VIAL 60 MG IV PUSH ×2 (09:18→16:55)
[2020-05-07] MEDS: METOPROLOL SUCCINATE EXT REL 50 MG TABCR PO (09:21)
--- NOTE | 2020-05-07 09:58 | PM.PNCARD ---
Progress Note: A&P Assessment and Plan (1) CAD (coronary artery disease): Code(s): I25.10 - Atherosclerotic heart disease of [place] coronary artery without angina pectoris Status: Chronic Assessment and Plan: unfortunately previously deemed not a CABG candidate. not on aspirin for? Reasons. Continue current meds (2) Nonsustained ventricular tachycardia: Code(s): I47.2 - Ventricular tachycardia Status: Acute Assessment and Plan: continue metoprolol (3) Ischemic cardiomyopathy: Code(s): I25.5 - Ischemic cardiomyopathy Status: Acute Assessment and Plan: continue his meds. I am uncertain as to why he is not on UMER-inhibitor but possibly due to renal function. Will defer this to his primary lens block gauger. (4) Congestive heart failure: Code(s): I50.9 - Heart failure, unspecified Status: Chronic Assessment and Plan: Continue diuresis per nephrology (5) Hyperlipidemia: Code(s): E78.5 - Hyperlipidemia, unspecified Status: Chronic Assessment and Plan: continue statin Subjective Date/time seen: 05/07/20 09:58 Interval history: chief complaint: Edema/ shortness of breath date of service 05/07/2020: he is feeling a little better. He denies any shortness of breath or chest pain. Edema is improved. his main complaint though is foot pain. Review of Systems Review of Systems: All systems reviewed & are unremarkable except as noted in HPI and below Constitutional: Constitutional: Denies chills, Denies excessive sweating, Denies fatigue, Denies headache(s) and Reports weakness Eyes: Eyes: Denies blurry vision ENT: Denies Normal hearing present, Denies headache(s), Denies lip swelling and Denies neck pain Cardiovascular: Cardiovascular: Denies chest pain, Reports pedal edema and Reports dyspnea on exertion Respiratory: Respiratory: Reports dyspnea on exertion Gastrointestinal: Gastrointestinal: Denies abdominal pain Genitourinary: Genitourinary: Denies dysuria Musculoskeletal: Musculoskeletal: Denies neck pain Integumentary/Breasts: Skin/Breast: Reports wounds Neurologic: Denies Normal hearing present, Denies confusion, Denies headache(s) and Reports weakness Psychiatric: Psychiatric: Denies anxiety and Denies confusion Endocrine: Endocrine: Denies excessive sweating and Denies fatigue Hematologic/Lymphatic: Hematologic/Lymphatic: Denies easy bleeding and Denies easy bruising Allergic/Immunologic: Allergic/Immunologic: Denies GI upset with certain foods and Denies lip swelling Exam Narrative: Exam Narrative: Alert and oriented appears stated age Const: General: no acute distress; No confusion Orientation/consciousness: No confusion HENMT: General nose exam: Normal nares present Other: nasal cannula in place Eyes: Sclera: sclerae normal Neck: Neck: no JVD Chest: Other: no reproducible chest wall pain to palpation Resp: Auscultation: diminished lung sounds Cardio: Rate: regular rate Rhythm: regular rhythm Skin: General skin exam: normal color Other: scabs are noted to lower extremities Neuro: General: No confusion Cranial nerves: No Normal hearing present Cognition (Neuro): normal cognition Speech: normal speech Extrem: General: pedal edema Psych: Affect: normal affect Objective Data Vital Signs Vital Signs: Vital Signs - 24 hr 05/06/20 10:10 05/06/20 11:59 05/06/20 14:00 Temperature 36.3 C L 36.4 C L Pulse Rate 78 75 80 Respiratory Rate 18 18 Blood Pressure 108/67 111/69 Pulse Oximetry 96 98 05/06/20 16:00 05/06/20 18:00 05/06/20 20:00 Temperature 36.4 C L Pulse Rate 79 79 90 Respiratory Rate 18 Blood Pressure 104/58 L Pulse Oximetry 99 05/06/20 22:05 05/07/20 00:00 05/07/20 02:08 Temperature 36.0 C L 36.1 C L Pulse Rate 77 86 74 Respiratory Rate 18 18 Blood Pressure 101/67 111/63 Pulse Oximetry 98 97 05/07/20 04:00 05/07/20
[2020-05-07 12:02] LABS: Glucose Point of Care 262 (65-105)
--- NOTE | 2020-05-07 12:36 | PM.IMPN ---
Progress Note: A&P Assessment and Plan (1) Congestive heart failure: Code(s): I50.9 - Heart failure, unspecified Status: Chronic Assessment and Plan: -----acute on chronic systolic heart failure. The patient had a -1500 fluid balance and so far today is -1100. Continue on 60 mg b.i.d. of Lasix for now and strict I&Os. His kidney function is a little better today. Echo Does not show any significant changes from the prior. He has systolic and diastolic CHF. It does not sound like he adheres to a low-salt diet. Continue O2 (2) Chronic respiratory failure with hypoxia and hypercapnia: Code(s): J96.11 - Chronic respiratory failure with hypoxia; J96.12 - Chronic respiratory failure with hypercapnia Status: Chronic Assessment and Plan: -------The patient chronically wears oxygen at 6 L per nasal cannula. Continue O2 and CPAP when he sleeps. (3) Obstructive sleep apnea: Code(s): G47.33 - Obstructive sleep apnea (adult) (pediatric) Status: Chronic Assessment and Plan: ------The patient brought his own tubing in his nasal pillow. Continue with CPAP. (4) HTN (hypertension) with goal to be determined: Code(s): I10 - Essential (primary) hypertension Status: Chronic Assessment and Plan: -----last blood pressure 110/60. Continue metoprolol and Lasix (5) Hyperlipidemia: Code(s): E78.5 - Hyperlipidemia, unspecified Status: Chronic Assessment and Plan: ------Continue with atorvastatin. (6) COPD (chronic obstructive pulmonary disease): Code(s): J44.9 - Chronic obstructive pulmonary disease, unspecified Status: Chronic Assessment and Plan: ------Patient has interstitial lung disease and he is on mycophenolate which is non formulary and I instructed the patient he can have somebody bring it in. He is also on prednisone, this can cause swelling but does not seem to be the cause since he has been on this for awhile (7) CAD (coronary artery disease): Code(s): I25.10 - Atherosclerotic heart disease of [place] coronary artery without angina pectoris Status: Chronic Assessment and Plan: -----no chest pain at this time. Troponins reviewed. No ACS suspected (8) DM2 (diabetes mellitus, type 2): Code(s): E11.9 - Type 2 diabetes mellitus without complications Status: Chronic Assessment and Plan: -----patient thought he was prediabetic and is surprised by his A1c. He said he is overwhelmed by this diagnosis but learned a lot from the extension educator. Lantus increased 05/06. For now, will do moderate sliding scale. He is usually on metformin 500 mg . I suspect he will be discharged with a higher dose but we will make sure his kidneys are within range. May consider adding a 2nd agent. (9) Neuropathy: Code(s): G62.9 - Polyneuropathy, unspecified Status: Acute Assessment and Plan: -----the pain in his feet felt to be consistent with neuropathy. Continue gabapentin and work on glucose control. DDx could be gout and colchicine was given but he has not had much relief. Will try small course of NSAIDs. No DVTs noted. He was educated about foot checks and should follow-up with his primary care physician Additional Plan Anemia of chronic disease continue to monitor his at his baseline. Continue with iron supplement. Insomnia. Patient takes zolpidem and cannot go to sleep without it. It is his home medications were continued. Wounds to lower extremities. I did ask that wound care consult see the patient. Subjective Date/time seen: 05/07/20 12:36 Interval history: Pt is a 64-year-old male here for CHF exacerbation and lower extremity pain. Patient was seen today and is still having foot pain that he says is getting worse. He is not feeling any relief from the gabapentin, norco, or colchicine. He says it feels similar to his gou
--- NOTE | 2020-05-07 13:24 | P.PNNP_ITS ---
Progress Note: A&P Assessment and Plan (1) YANELIS (acute kidney injury): Code(s): N17.9 - Acute kidney failure, unspecified Status: Acute Assessment and Plan: * creatinine continues to improve - component of renal venous hypertension [and hence improvement in renal function with diuresis(?)] * urine electrolytes noted but difficult to interpret since on diuretics * no evidence of significant proteinuria * follow creatinine with current diuretics * renal ultrasound normal (2) CHF exacerbation: Code(s): I50.9 - Heart failure, unspecified Status: Acute Assessment and Plan: * clinically improving * follow I/Os, daily weights, and respiratory status (3) Ischemic cardiomyopathy: Code(s): I25.5 - Ischemic cardiomyopathy Status: Acute Assessment and Plan: * repeat Echo here demonstrates relative stability * possibly playing a role with #1 (mild degree of cardiorenal syndrome?) * Cardiology following (4) Nonsustained ventricular tachycardia: Code(s): I47.2 - Ventricular tachycardia Status: Acute Assessment and Plan: * Cardiology following (5) Gout flare: Code(s): M10.9 - Gout, unspecified Status: Acute Assessment and Plan: * not responding to colchicine * consider trial of NSAIDs versus steroids * steroids might worsen glucose control but he is already on steroids (6) Hypertension: Code(s): I10 - Essential (primary) hypertension Status: Chronic Assessment and Plan: * reasonably controlled * perhap too well-controlled leading to possible renal hypoperfusion(?) * follow trend of hemodynamics Will continue to follow. Subjective Date/time seen: 05/07/20 13:24 State his breathing and edema seems to be doing better -- better urine output with higher dose of IV lasix (and one-time dose of metolazone); major complaint is that of LE pain that may be a possible gout flare. Exam Narrative: Exam Narrative: General: WD/WN male in NAD Heart: normal S1 and S2; no rub Lungs: decreased at bases Abdomen: soft, nontender, nondistended, positive bowel sounds Extremities: no cyanosis or clubbing; 1+ edema Skin: warm and dry Objective Data Vital Signs Vital Signs: Vital Signs Temp Pulse Resp BP Pulse Ox 05/07/20 10:00 36.7 C 84 18 110/60 97 05/07/20 09:21 85 05/07/20 09:12 94 05/07/20 09:00 116/69 05/07/20 08:00 100 05/07/20 04:38 69 16 95 05/07/20 04:00 79 05/07/20 02:08 36.1 C L 74 18 111/63 97 05/07/20 00:00 86 05/06/20 22:05 36.0 C L 77 18 101/67 98 05/06/20 20:00 90 05/06/20 18:00 36.4 C L 79 18 104/58 L 99 05/06/20 16:00 79 05/06/20 14:00 36.4 C L 80 18 111/69 98 Intake/Output Intake/Output: Intake & Output 05/04/20 05/05/20 05/06/20 05/07/20 23:59 23:59 23:59 23:59 Intake Total 1580 1500 1200 350 Output Total 2225 1400 2700 1450 Balance -645 100 -1500 -1100 Meds/Results Medications: Active Medications Generic Name Dose Route Start Last Admin Trade Name Peterq PRN Reason Stop Dose Admin Hydrocodone Bitart/Acetaminophen 1 tab 05/03/20 22:44 05/07/20 00:00 [place] 5-325
--- NOTE | 2020-05-07 13:24 | PM.PNNEP ---
Progress Note: A&P Assessment and Plan (1) YANELIS (acute kidney injury): Code(s): N17.9 - Acute kidney failure, unspecified Status: Acute Assessment and Plan: creatinine continues to improve - component of renal venous hypertension [and hence improvement in renal function with diuresis(?)] urine electrolytes noted but difficult to interpret since on diuretics no evidence of significant proteinuria follow creatinine with current diuretics renal ultrasound normal (2) CHF exacerbation: Code(s): I50.9 - Heart failure, unspecified Status: Acute Assessment and Plan: clinically improving follow I/Os, daily weights, and respiratory status (3) Ischemic cardiomyopathy: Code(s): I25.5 - Ischemic cardiomyopathy Status: Acute Assessment and Plan: repeat Echo here demonstrates relative stability possibly playing a role with #1 (mild degree of cardiorenal syndrome?) Cardiology following (4) Nonsustained ventricular tachycardia: Code(s): I47.2 - Ventricular tachycardia Status: Acute Assessment and Plan: Cardiology following (5) Gout flare: Code(s): M10.9 - Gout, unspecified Status: Acute Assessment and Plan: not responding to colchicine consider trial of NSAIDs versus steroids steroids might worsen glucose control but he is already on steroids (6) Hypertension: Code(s): I10 - Essential (primary) hypertension Status: Chronic Assessment and Plan: reasonably controlled perhap too well-controlled leading to possible renal hypoperfusion(?) follow trend of hemodynamics Will continue to follow. Subjective Date/time seen: 05/07/20 13:24 State his breathing and edema seems to be doing better -- better urine output with higher dose of IV lasix (and one-time dose of metolazone); major complaint is that of LE pain that may be a possible gout flare. Exam Narrative: Exam Narrative: General: WD/WN male in NAD Heart: normal S1 and S2; no rub Lungs: decreased at bases Abdomen: soft, nontender, nondistended, positive bowel sounds Extremities: no cyanosis or clubbing; 1+ edema Skin: warm and dry Objective Data Vital Signs Vital Signs: Vital Signs Temp Pulse Resp BP Pulse Ox 05/07/20 10:00 36.7 C 84 18 110/60 97 05/07/20 09:21 85 05/07/20 09:12 94 05/07/20 09:00 116/69 05/07/20 08:00 100 05/07/20 04:38 69 16 95 05/07/20 04:00 79 05/07/20 02:08 36.1 C L 74 18 111/63 97 05/07/20 00:00 86 05/06/20 22:05 36.0 C L 77 18 101/67 98 05/06/20 20:00 90 05/06/20 18:00 36.4 C L 79 18 104/58 L 99 05/06/20 16:00 79 05/06/20 14:00 36.4 C L 80 18 111/69 98 Intake/Output Intake/Output: Intake & Output 05/04/20 05/05/20 05/06/20 05/07/20 23:59 23:59 23:59 23:59 Intake Total 1580 1500 1200 350 Output Total 2225 1400 2700 1450 Balance -645 100 -1500 -1100 Meds/Results Medications: Active Medications Generic Name Dose Route Start Last Admin Trade Name Freq PRN Reason Stop Dose Admin Hydrocodone Bitart/Acetaminophen 1 tab 05/03/20 22:44 05/07/20 00:00 [place] 5-325 Mg PO 1 tab Q6H PRN Administration Pain Rated 4-6 Allopurinol 100 mg 05/04/20 09:00 05/07/20 09:18 Zyloprim PO 100 mg BID JANNET Administration Aspirin 81 mg 05/07/20 09:00 05/07/20 09:18 Aspirin Ec PO 81 mg QAM JANNET Administration Atorvastatin Calcium 40 mg 05/06/20 09:00 05/07/20 09:18 Lipitor PO 40 mg DAILY JANNET Administration Dextrose 12.5 gm 05/03/20 20:09 Dextrose 50% Syringe IV PUSH PRN PRN Hypoglycemia Protocol Diclofenac Sodium 75 mg 05/03/20 20:10 05/05/20 17:12 Voltaren Ec Tab PO 75 mg BID PRN Administration Pain Ferrous Sulfate 324 mg 05/04/20 09:00 05/07/20 09:18 Ferrous Sulfate PO 324 mg DAILY JANNET Administration Furosemide 60
[2020-05-07 18:28] LABS: Glucose Point of Care 308 (65-105)
[2020-05-07] MEDS: INDOMETHACIN 25 MG CAPSULE PO (18:32)
[2020-05-07] MEDS: INSULIN GLARGINE (*BKC) 100 UNITS/ML 13 UNITS SUB-Q (21:04)
[2020-05-07 21:50] LABS: Glucose Point of Care 306 (65-105)
[2020-05-07] MEDS: ZOLPIDEM TARTRATE 5 MG TABLET 10 MG PO (22:22)
[2020-05-08] VITALS (15 sets, daily range): BP systolic 103–114; BP diastolic 52–69; PULSE 61–87; RESP 14–24; TEMP 36.1–36.9; O2SAT 95–99
[2020-05-08] MEDS: GABAPENTIN 300 MG CAPSULE PO ×3 (06:20→21:14)
--- NOTE | 2020-05-08 06:59 | P.PNNP_ITS ---
Progress Note: A&P Assessment and Plan (1) YANELIS (acute kidney injury): Code(s): N17.9 - Acute kidney failure, unspecified Status: Acute Assessment and Plan: * Acute kidney injury - component of renal venous hypertension Creatinine continues to improve Today's is pending * urine electrolytes non pre renal but on diuretics * Normal renal ultrasound * no evidence of significant proteinuria * follow creatinine with current diuretics (2) CHF exacerbation: Code(s): I50.9 - Heart failure, unspecified Status: Acute Assessment and Plan: * clinically improving * Intake/output still negative. (3) Ischemic cardiomyopathy: Code(s): I25.5 - Ischemic cardiomyopathy Status: Acute Assessment and Plan: * repeat Echo here demonstrates relative stability * possibly playing a role with #1 (mild degree of cardiorenal syndrome?) * Cardiology following (4) Nonsustained ventricular tachycardia: Code(s): I47.2 - Ventricular tachycardia Status: Acute Assessment and Plan: * Cardiology following (5) Gout flare: Code(s): M10.9 - Gout, unspecified Status: Acute Assessment and Plan: * Uric acid is very high. * Not responding to colchicine * On steroids. * (6) Hypertension: Code(s): I10 - Essential (primary) hypertension Status: Chronic Assessment and Plan: * Systolic blood pressure between 100 and 120. Additional Plan Subjective Date/time seen: 05/08/20 06:59 Interval history: Patient is alert. He feels a little better. He was a little short of breath on admission and is better now. His foot pain is a little better since admission. He has swelling in that is better also. He slept well. Eating okay. Bowels okay. Review of Systems Cardiovascular: Cardiovascular: Reports no additional cardiovascular complaints Respiratory: Respiratory: Reports no additional respiratory complaints Gastrointestinal: Gastrointestinal: Reports no additional gastrointestinal complaints Genitourinary: Genitourinary: Reports no additional male genitourinary complaints Exam Narrative: Exam Narrative: WDWN in NAD skin no rash head ncat lungs clear cor reg no rub abd BS+ nontender and soft ext trace to1+ edema. Objective Data Vital Signs Vital Signs: Vital Signs - 24 hr 05/07/20 08:00 05/07/20 09:00 05/07/20 09:12 Temperature Pulse Rate 100 Respiratory Rate Blood Pressure 116/69 Pulse Oximetry 94 05/07/20 09:21 05/07/20 10:00 05/07/20 12:00 Temperature 36.7 C Pulse Rate 85 84 83 Respiratory Rate 18 Blood Pressure 110/60 Pulse Oximetry 97 05/07/20 14:00 05/07/20 16:00 05/07/20 18:00 Temperature 36.1 C L 36.1 C L Pulse Rate 87 76 71 Respiratory Rate 18 18 Blood Pressure 113/61 109/48 L Pulse Oximetry 95 100 05/07/20 19:08 05/07/20 20:00 05/07/20 21:43 Temperature 36.4 C Pulse Rate 74 75 Respiratory Rate 20 Blood Pressure 107/49 L Pulse Oximetry 97 100 05/07/20 23:21 05/08/20 00:00 05/08/20
--- NOTE | 2020-05-08 06:59 | PM.PNNEP ---
Progress Note: A&P Assessment and Plan (1) YANELIS (acute kidney injury): Code(s): N17.9 - Acute kidney failure, unspecified Status: Acute Assessment and Plan: Acute kidney injury - component of renal venous hypertension Creatinine continues to improve Today's is pending urine electrolytes non pre renal but on diuretics Normal renal ultrasound no evidence of significant proteinuria follow creatinine with current diuretics (2) CHF exacerbation: Code(s): I50.9 - Heart failure, unspecified Status: Acute Assessment and Plan: clinically improving Intake/output still negative. (3) Ischemic cardiomyopathy: Code(s): I25.5 - Ischemic cardiomyopathy Status: Acute Assessment and Plan: repeat Echo here demonstrates relative stability possibly playing a role with #1 (mild degree of cardiorenal syndrome?) Cardiology following (4) Nonsustained ventricular tachycardia: Code(s): I47.2 - Ventricular tachycardia Status: Acute Assessment and Plan: Cardiology following (5) Gout flare: Code(s): M10.9 - Gout, unspecified Status: Acute Assessment and Plan: Uric acid is very high. Not responding to colchicine On steroids. (6) Hypertension: Code(s): I10 - Essential (primary) hypertension Status: Chronic Assessment and Plan: Systolic blood pressure between 100 and 120. Additional Plan Subjective Date/time seen: 05/08/20 06:59 Interval history: Patient is alert. He feels a little better. He was a little short of breath on admission and is better now. His foot pain is a little better since admission. He has swelling in that is better also. He slept well. Eating okay. Bowels okay. Review of Systems Cardiovascular: Cardiovascular: Reports no additional cardiovascular complaints Respiratory: Respiratory: Reports no additional respiratory complaints Gastrointestinal: Gastrointestinal: Reports no additional gastrointestinal complaints Genitourinary: Genitourinary: Reports no additional male genitourinary complaints Exam Narrative: Exam Narrative: WDWN in NAD skin no rash head ncat lungs clear cor reg no rub abd BS+ nontender and soft ext trace to1+ edema. Objective Data Vital Signs Vital Signs: Vital Signs - 24 hr 05/07/20 08:00 05/07/20 09:00 05/07/20 09:12 Temperature Pulse Rate 100 Respiratory Rate Blood Pressure 116/69 Pulse Oximetry 94 05/07/20 09:21 05/07/20 10:00 05/07/20 12:00 Temperature 36.7 C Pulse Rate 85 84 83 Respiratory Rate 18 Blood Pressure 110/60 Pulse Oximetry 97 05/07/20 14:00 05/07/20 16:00 05/07/20 18:00 Temperature 36.1 C L 36.1 C L Pulse Rate 87 76 71 Respiratory Rate 18 18 Blood Pressure 113/61 109/48 L Pulse Oximetry 95 100 05/07/20 19:08 05/07/20 20:00 05/07/20 21:43 Temperature 36.4 C Pulse Rate 74 75 Respiratory Rate 20 Blood Pressure 107/49 L Pulse Oximetry 97 100 05/07/20 23:21 05/08/20 00:00 05/08/20 01:49 Temperature Pulse Rate 74 73 68 Respiratory Rate 19 14 Blood Pressure Pulse Oximetry 96 95 05/08/20 02:30 05/08/20 04:00 05/08/20 05:48 Temperature 36.3 C L 36.1 C L Pulse Rate 76 73 61 Respiratory Rate 18 20 Blood Pressure 103/52 L 114/69 Pulse Oximetry 99 96 05/08/20 06:32 Temperature Pulse Rate Respiratory Rate Blood Pressure Pulse Oximetry 96 Intake/Output Intake/Output: Intake & Output 05/05/20 05/06/20 05/07/20 05/08/20 23:59 23:59 23:59 23:59 Intake Total 1500 1200 850 200 Output Total 1400 2700 0780 550 Balance 021 -6372 -4479 -520 Meds/Results Medications: Active Medications Generic Name Dose Route Start Last Admin Trade Name Freq PRN Reason Stop Dose Admin Hydrocodone Bitart/Acetaminophen 1 tab 05/03/20 22:44 05/07/20 00:00 [place] 5-325 Mg PO 1 tab Q6H PRN Administration Pain
[2020-05-08 07:41] LABS: Blood Urea Nitrogen 58 mg/dL (9-20); Calcium 8.1 mg/dL (8.4-10.2); Carbon Dioxide 34 mmol/L (22-30); Chloride 94 mmol/L (98-107); Estimated CRCL calculation 53 ml/min; Estimated Glomerular Filt Rate 47; Glucose 208 mg/dL (75-110); Potassium 4.2 mmol/L (3.4-5.0); Sodium 137 mmol/L (137-145)
[2020-05-08 07:51] LABS: Glucose Point of Care 198 (65-105)
[2020-05-08] MEDS: FUROSEMIDE INJ 100 MG/10 ML VIAL 60 MG IV PUSH ×2 (08:11→16:14)
[2020-05-08] MEDS: FERROUS SULFATE 324 MG TABLET PO (08:13)
[2020-05-08] MEDS: allopurinoL 100 MG TABLET PO ×2 (08:13→16:15)
[2020-05-08] MEDS: INDOMETHACIN 25 MG CAPSULE PO (08:13)
[2020-05-08] MEDS: SILVERGEL (ELTA) 45 ML 1 APPLIC TOPICAL (08:13)
[2020-05-08] MEDS: ATORVASTATIN 40 MG TABLET PO (08:15)
[2020-05-08] MEDS: ASPIRIN 81 MG ENTERIC TABLET PO (08:15)
[2020-05-08] MEDS: predniSONE 10 MG TABLET PO (08:16)
[2020-05-08] MEDS: METOPROLOL SUCCINATE EXT REL 50 MG TABCR PO (08:16)
--- NOTE | 2020-05-08 11:49 | PM.IMPN ---
Progress Note: A&P Assessment and Plan (1) Congestive heart failure: Code(s): I50.9 - Heart failure, unspecified Status: Chronic Assessment and Plan: -----acute on chronic systolic heart failure. The patient had a -3875 fluid balance yesterday and so far today is -1100. Continue on 60 mg b.i.d. of Lasix for now and strict I&Os. His kidney function is up a bit today. Echo Does not show any significant changes from the prior. He has systolic and diastolic CHF. It does not sound like he adheres to a low-salt diet. Continue O2 (2) Chronic respiratory failure with hypoxia and hypercapnia: Code(s): J96.11 - Chronic respiratory failure with hypoxia; J96.12 - Chronic respiratory failure with hypercapnia Status: Chronic Assessment and Plan: -------The patient chronically wears oxygen at 6 L per nasal cannula. Continue O2 and CPAP when he sleeps. (3) Obstructive sleep apnea: Code(s): G47.33 - Obstructive sleep apnea (adult) (pediatric) Status: Chronic Assessment and Plan: ------The patient brought his own tubing in his nasal pillow. Continue with CPAP. (4) HTN (hypertension) with goal to be determined: Code(s): I10 - Essential (primary) hypertension Status: Chronic Assessment and Plan: -----last blood pressure 109/61. Continue metoprolol and Lasix (5) Hyperlipidemia: Code(s): E78.5 - Hyperlipidemia, unspecified Status: Chronic Assessment and Plan: ------Continue with atorvastatin. (6) COPD (chronic obstructive pulmonary disease): Code(s): J44.9 - Chronic obstructive pulmonary disease, unspecified Status: Chronic Assessment and Plan: ------Patient has interstitial lung disease and he is on mycophenolate which is non formulary and I instructed the patient he can have somebody bring it in. He is also on prednisone, this can cause swelling but does not seem to be the cause since he has been on this for awhile (7) CAD (coronary artery disease): Code(s): I25.10 - Atherosclerotic heart disease of [place] coronary artery without angina pectoris Status: Chronic Assessment and Plan: -----no chest pain at this time. Troponins reviewed. No ACS suspected (8) DM2 (diabetes mellitus, type 2): Code(s): E11.9 - Type 2 diabetes mellitus without complications Status: Chronic Assessment and Plan: -----patient thought he was prediabetic and is surprised by his A1c. He said he is overwhelmed by this diagnosis but learned a lot from the medical educator. Lantus increased 05/06. For now, will do moderate sliding scale. He is usually on metformin 500 mg . I suspect he will be discharged with a higher dose but we will make sure his kidneys are within range. May consider adding a 2nd agent. I would also do Lantus at discharge (9) Neuropathy: Code(s): G62.9 - Polyneuropathy, unspecified Status: Acute Assessment and Plan: -----the pain in his feet felt to be consistent with neuropathy. Continue gabapentin and work on glucose control. DDx could be gout and colchicine was given and he has had some relief with indomethacin. Will have to watch that closely with his kidney function. No DVTs noted. He was educated about foot checks and should follow-up with his primary care physician Subjective Date/time seen: 05/08/20 11:49 Interval history: Pt is a 64-year-old male here for CHF exacerbation and lower extremity pain. Patient is doing much better today and his foot pain has improved. He said he finally started getting relief earlier today. Overall, he thinks he has improved but his feet and legs are still swollen. He has not had any issues with shortness of breath or chest pain. His last bowel movement was yesterday and normal Exam Narrative: Exam Narrative: General: Overweight patient resting comfortably in the chair in
[2020-05-08] MEDS: INSULIN ASPART (*BKC) 100 UNITS/ML SUB-Q ×2 (13:09→18:34)
[2020-05-08 13:12] LABS: Glucose Point of Care 382 (65-105)
--- NOTE | 2020-05-08 13:21 | PCCCNOTE ---
On 05/08/20, the student, Sis Scott, provided care and completed [facility] documentation on this patient. I have reviewed the student's documentation and agree with the findings.
[2020-05-08 14:01] LABS: Glucose Point of Care 349 (65-105)
--- NOTE | 2020-05-08 14:32 | PM.PNCARD ---
Progress Note: A&P Time Spent With Patient Time: 64-year-old patient with ischemic heart disease for which he was refused surgery for multivessel disease. Follows with Cardiology down in [place]. He is responding satisfactorily to intravenous furosemide and losing volume. Agree with Dr. Braxton that it is unclear as to why he is not UMER-inhibitor or ARB. Expect patient to still be hospitalized another day or 2 as he is still moderately volume overloaded Maikol Rosado MD [facility] Subjective Date/time seen: Date of service: 05/08/20 14:32 Interval history: Follow-up visit in 64-year-old patient with apparent history of multivessel coronary disease, ischemic cardiomyopathy in decompensated heart failure. Patient seated in a chair watching television appears to be in no distress of any kind Exam Const: General: comfortable and no acute distress HENMT: Mouth: Yes dry mucous membranes Eyes: Sclera: sclerae normal Pupils: Equal, round and reactive pupils present Neck: Neck: supple Thyroid: thyroid normal Other: No carotid bruits, difficult to assess JVD given his obese body habitus Resp: Effort & Inspection: normal respiratory effort Other: No obvious pulmonary rales breath sounds are distant but essentially clear Cardio: Rate: regular rate Rhythm: regular rhythm GI: Auscultation: normal bowel sounds Skin: General skin exam: normal color Neuro: Cognition (Neuro): normal cognition Extrem: Other: Moderate persistent lower extremity edema with changes of chronic venous stasis Objective Data Vital Signs Vital Signs: Vital Signs - 24 hr 05/07/20 16:00 05/07/20 18:00 05/07/20 19:08 Temperature 36.1 C L Pulse Rate 76 71 Respiratory Rate 18 Blood Pressure 109/48 L Pulse Oximetry 100 97 05/07/20 20:00 05/07/20 21:43 05/07/20 23:21 Temperature 36.4 C Pulse Rate 74 75 74 Respiratory Rate 20 19 Blood Pressure 107/49 L Pulse Oximetry 100 96 05/08/20 00:00 05/08/20 01:49 05/08/20 02:30 Temperature 36.3 C L Pulse Rate 73 68 76 Respiratory Rate 14 18 Blood Pressure 103/52 L Pulse Oximetry 95 99 05/08/20 04:00 05/08/20 05:48 05/08/20 06:32 Temperature 36.1 C L Pulse Rate 73 61 Respiratory Rate 20 Blood Pressure 114/69 Pulse Oximetry 96 96 05/08/20 08:00 05/08/20 08:16 05/08/20 11:01 Temperature 36.9 C Pulse Rate 87 72 73 Respiratory Rate 21 H Blood Pressure 109/61 Pulse Oximetry 98 05/08/20 12:00 05/08/20 14:30 Temperature 36.2 C L Pulse Rate 72 74 Respiratory Rate 24 H Blood Pressure 110/62 Pulse Oximetry 97 Intake/Output Intake/Output: Intake & Output 05/05/20 05/06/20 05/07/20 05/08/20 23:59 23:59 23:59 23:59 Intake Total 1500 1200 850 440 Output Total 1400 2700 4725 550 Balance 769 -4231 -0127 -110 Meds/Results Medications: Active Medications Generic Name Dose Route Start Last Admin Trade Name Freq PRN Reason Stop Dose Admin Hydrocodone Bitart/Acetaminophen 1 tab 05/03/20 22:44 05/07/20 00:00 [place] 5-325 Mg PO 1 tab Q6H PRN Administration Pain Rated 4-6 Allopurinol 100 mg 05/04/20 09:00 05/08/20 08:13 Zyloprim PO 100 mg BID JANNET Administration Aspirin 81 mg 05/07/20 09:00 05/08/20 08:15 Aspirin Ec PO 81 mg QAM JANNET Administration Atorvastatin Calcium 40 mg 05/06/20 09:00 05/08/20 08:15 Lipitor PO 40 mg DAILY JANNET Administration Dextrose 12.5 gm 05/03/20 20:09 Dextrose 50% Syringe IV PUSH PRN PRN Hypoglycemia Protocol Diclofenac Sodium 75 mg 05/03/20 20:10 05/05/20 17:12 Voltaren Ec Tab PO 75 mg BID PRN Administration Pain Ferrous Sulfate 324 mg 05/04/20 09:00 05/08/20 08:13 Ferrous Sulfate PO 324 mg DAILY JANNET Administration Furosemide 60 mg 05/06/20 09:00 05/08/20 08:11 Lasix Inj IV PUSH 60 mg BID JANNET Administration Gabapentin 300 mg 05/05/20 14:00 05/08/20 13:07 Neurontin PO 300 mg Q8HR
[2020-05-08 18:42] LABS: Glucose Point of Care 342 (65-105)
[2020-05-08] MEDS: INSULIN GLARGINE (*BKC) 100 UNITS/ML 13 UNITS SUB-Q (21:15)
[2020-05-08 21:27] LABS: Glucose Point of Care 301 (65-105)
[2020-05-08] MEDS: ZOLPIDEM TARTRATE 5 MG TABLET 10 MG PO (22:31)
[2020-05-09] VITALS (15 sets, daily range): BP systolic 100–128; BP diastolic 64–85; PULSE 56–82; RESP 13–20; TEMP 35.7–36.8; O2SAT 94–100
[2020-05-09] MEDS: GABAPENTIN 300 MG CAPSULE PO ×3 (05:45→21:20)
[2020-05-09 06:02] LABS: Hematocrit 34.6 % (42.0-52.0); Hemoglobin 10.9 g/dL (14.0-18.0); Mean Corpuscular HGB Conc 31.5 g/dl (32-36); Mean Corpuscular Hemoglobin 30.4 pg (26-34); Mean Corpuscular Volume 96.6 fl (80-100); Mean Platelet Volume 11.3 fl (7.4-10.4); Platelet Count Result 226 k/mm3 (150-375); Red Blood Count 3.58 M/mm3 (4.6-6.20); Red Cell Distribution Width 14.4 % (11.5-14.5); White Blood Count 10.4 K/mm3 (4.5-10.0)
[2020-05-09 06:21] LABS: Albumin Level 3.8 g/dL (3.5-5.1); Blood Urea Nitrogen 60 mg/dL (9-20); Calcium 8.5 mg/dL (8.4-10.2); Carbon Dioxide 37 mmol/L (22-30); Chloride 93 mmol/L (98-107); Estimated CRCL calculation 57 ml/min; Estimated Glomerular Filt Rate 51; Glucose 178 mg/dL (75-110); Phosphorus 4.3 mg/dL (2.5-4.5); Potassium 4.2 mmol/L (3.4-5.0); Sodium 137 mmol/L (137-145)
--- NOTE | 2020-05-09 07:17 | P.PNNP_ITS ---
Progress Note: A&P Assessment and Plan (1) YANELIS (acute kidney injury): Code(s): N17.9 - Acute kidney failure, unspecified Status: Acute Assessment and Plan: * Acute kidney injury - component of renal venous hypertension * urine electrolytes non pre renal but on diuretics * Normal renal ultrasound * no evidence of significant proteinuria * He is getting diuretics because he does have some fluid overload. * Will check a chest x-ray to follow up on this. * He is still swollen. * His creatinine will rise and fall with diuretics. Early on improvement of renal venous hypertension improved his creatinine however now the creatinine is back up with further diuresis. He probably is going to have chronic pre renal azotemia. I discussed this with the patient. The patient wants the fluid off right away however if we do this his creatinine is going to get even worse. So will try a single day of metolazone and see how he does. Will titrate diuretics according to his creatinine. (2) CHF exacerbation: Code(s): I50.9 - Heart failure, unspecified Status: Acute Assessment and Plan: * clinically improving * Still excess fluid. Will get a chest x-ray to see how that is doing. * Intake/output still negative. (3) Ischemic cardiomyopathy: Code(s): I25.5 - Ischemic cardiomyopathy Status: Acute Assessment and Plan: * repeat Echo here demonstrates relative stability * possibly playing a role with #1 (mild degree of cardiorenal syndrome?) * Cardiology following (4) Nonsustained ventricular tachycardia: Code(s): I47.2 - Ventricular tachycardia Status: Acute Assessment and Plan: * Cardiology following (5) Gout flare: Code(s): M10.9 - Gout, unspecified Status: Acute Assessment and Plan: * Uric acid is very high. * Not responding to colchicine * On steroids. This may have a role in his edema as well. (6) Hypertension: Code(s): I10 - Essential (primary) hypertension Status: Chronic Assessment and Plan: * Systolic blood pressure between 100 and 120. Additional Plan Subjective Date/time seen: 05/09/20 07:17 Interval history: Patient is alert. He feels a little better. He says he is not making all that much urine. Swelling is about the same. He was a little short of breath on admission and is better now. His foot pain is a little better since admission. Review of Systems Cardiovascular: Cardiovascular: Reports no additional cardiovascular complaints Respiratory: Respiratory: Reports no additional respiratory complaints Gastrointestinal: Gastrointestinal: Reports no additional gastrointestinal complaints Genitourinary: Genitourinary: Reports no additional male genitourinary complaints Exam Narrative: Exam Narrative: WDWN in NAD skin no rash head ncat lungs clear cor reg no rub abd BS+ nontender and soft ext 1+ edema. Objective Data Vital Signs Vital Signs: Vital Signs - 24 hr 05/08/20 08:00 05/08/20 08:16 05/08/20 11:01 Temperature 36.9 C Pulse Rate 87 72 73 Respiratory Rate 21 H Blood Pressure 109/61 Pulse Oximetry 98 05/08/20 12:00 05/08/20 14:30 05/08/20 16:00 Temperature 36.2 C L Pulse Rate 72 74 77 Respiratory Rate
--- NOTE | 2020-05-09 07:17 | PM.PNNEP ---
Progress Note: A&P Assessment and Plan (1) YANELIS (acute kidney injury): Code(s): N17.9 - Acute kidney failure, unspecified Status: Acute Assessment and Plan: Acute kidney injury - component of renal venous hypertension urine electrolytes non pre renal but on diuretics Normal renal ultrasound no evidence of significant proteinuria He is getting diuretics because he does have some fluid overload. Will check a chest x-ray to follow up on this. He is still swollen. His creatinine will rise and fall with diuretics. Early on improvement of renal venous hypertension improved his creatinine however now the creatinine is back up with further diuresis. He probably is going to have chronic pre renal azotemia. I discussed this with the patient. The patient wants the fluid off right away however if we do this his creatinine is going to get even worse. So will try a single day of metolazone and see how he does. Will titrate diuretics according to his creatinine. (2) CHF exacerbation: Code(s): I50.9 - Heart failure, unspecified Status: Acute Assessment and Plan: clinically improving Still excess fluid. Will get a chest x-ray to see how that is doing. Intake/output still negative. (3) Ischemic cardiomyopathy: Code(s): I25.5 - Ischemic cardiomyopathy Status: Acute Assessment and Plan: repeat Echo here demonstrates relative stability possibly playing a role with #1 (mild degree of cardiorenal syndrome?) Cardiology following (4) Nonsustained ventricular tachycardia: Code(s): I47.2 - Ventricular tachycardia Status: Acute Assessment and Plan: Cardiology following (5) Gout flare: Code(s): M10.9 - Gout, unspecified Status: Acute Assessment and Plan: Uric acid is very high. Not responding to colchicine On steroids. This may have a role in his edema as well. (6) Hypertension: Code(s): I10 - Essential (primary) hypertension Status: Chronic Assessment and Plan: Systolic blood pressure between 100 and 120. Additional Plan Subjective Date/time seen: 05/09/20 07:17 Interval history: Patient is alert. He feels a little better. He says he is not making all that much urine. Swelling is about the same. He was a little short of breath on admission and is better now. His foot pain is a little better since admission. Review of Systems Cardiovascular: Cardiovascular: Reports no additional cardiovascular complaints Respiratory: Respiratory: Reports no additional respiratory complaints Gastrointestinal: Gastrointestinal: Reports no additional gastrointestinal complaints Genitourinary: Genitourinary: Reports no additional male genitourinary complaints Exam Narrative: Exam Narrative: WDWN in NAD skin no rash head ncat lungs clear cor reg no rub abd BS+ nontender and soft ext 1+ edema. Objective Data Vital Signs Vital Signs: Vital Signs - 24 hr 05/08/20 08:00 05/08/20 08:16 05/08/20 11:01 Temperature 36.9 C Pulse Rate 87 72 73 Respiratory Rate 21 H Blood Pressure 109/61 Pulse Oximetry 98 05/08/20 12:00 05/08/20 14:30 05/08/20 16:00 Temperature 36.2 C L Pulse Rate 72 74 77 Respiratory Rate 24 H Blood Pressure 110/62 Pulse Oximetry 97 05/08/20 18:37 05/08/20 20:00 05/08/20 20:27 Temperature 36.6 C Pulse Rate 75 73 Respiratory Rate 20 Blood Pressure 107/68 Pulse Oximetry 98 96 05/09/20 00:00 05/09/20 01:34 05/09/20 04:00 Temperature 36.2 C L 36.1 C L Pulse Rate 71 82 70 Respiratory Rate 20 14 20 Blood Pressure 115/64 100/72 Pulse Oximetry 100 94 100 Intake/Output Intake/Output: Intake & Output 05/06/20 05/07/20 05/08/20 05/09/20 23:59 23:59 23:59 23:59 Intake Total 6978 942 9508 50 Output Total 7180 8896 1850 530 Qfnjadp -9008 -2875 -320 -480 Meds/Results Medications: Active Medications Generi
[2020-05-09 07:50] LABS: Glucose Point of Care 184 (65-105)
[2020-05-09] MEDS: metOLazone 5 MG TABLET PO (08:55)
[2020-05-09] MEDS: predniSONE 10 MG TABLET PO (08:55)
[2020-05-09] MEDS: INDOMETHACIN 25 MG CAPSULE PO ×2 (08:55→16:41)
[2020-05-09] MEDS: ATORVASTATIN 40 MG TABLET PO (08:55)
[2020-05-09] MEDS: FERROUS SULFATE 324 MG TABLET PO (08:55)
[2020-05-09] MEDS: FUROSEMIDE INJ 100 MG/10 ML VIAL 60 MG IV PUSH ×2 (08:56→16:41)
[2020-05-09] MEDS: SILVERGEL (ELTA) 45 ML 1 APPLIC TOPICAL (08:57)
[2020-05-09] MEDS: METOPROLOL SUCCINATE EXT REL 50 MG TABCR PO (08:57)
[2020-05-09] MEDS: allopurinoL 100 MG TABLET PO ×2 (08:57→16:41)
[2020-05-09] MEDS: ASPIRIN 81 MG ENTERIC TABLET PO (09:03)
--- NOTE | 2020-05-09 09:55 | P.PNIM_ITS ---
Progress Note: A&P Assessment and Plan (1) Congestive heart failure: Code(s): I50.9 - Heart failure, unspecified Status: Chronic Assessment and Plan: * Acute on chronic CHF; appreciate cardiology recommendations. * Remains on 60mg BID of Lasix today and received a dose of metolazone. Monitor I&Os closely, montior renal function. * May have been precipitated by nonadherance to low sodium diet. (2) Chronic respiratory failure with hypoxia and hypercapnia: Code(s): J96.11 - Chronic respiratory failure with hypoxia; J96.12 - Chronic respiratory failure with hypercapnia Status: Chronic Assessment and Plan: * Secondary to COPD and reported interstitial lung disease. His cdl instructor is Dr Brice. * He is tolerating his home O2 requirement of 6 L nasal cannula. Continue O2 and CPAP when he sleeps. (3) Obstructive sleep apnea: Code(s): G47.33 - Obstructive sleep apnea (adult) (pediatric) Status: Chronic Assessment and Plan: * CPAP. (4) HTN (hypertension) with goal to be determined: Code(s): I10 - Essential (primary) hypertension Status: Chronic Assessment and Plan: * Last BP 100/72. Continue to monitor closely given his need for increased diuresis. (5) Hyperlipidemia: Code(s): E78.5 - Hyperlipidemia, unspecified Status: Chronic Assessment and Plan: * Continue home statin therapy. (6) COPD (chronic obstructive pulmonary disease): Code(s): J44.9 - Chronic obstructive pulmonary disease, unspecified Status: Chronic Assessment and Plan: * Patient has interstitial lung disease and is on mycophenolate, daily low-dose prednisone. Continue maintenance inhalers. * No acute respiratory distress today. (7) CAD (coronary artery disease): Code(s): I25.10 - Atherosclerotic heart disease of [place] coronary artery without angina pectoris Status: Chronic Assessment and Plan: * Stable, no chest pain today. Appears he has a history of ischemic heart di sease and has declined intervention in the past. His graphite disk assembler is Dr Mejia. (8) DM2 (diabetes mellitus, type 2): Code(s): E11.9 - Type 2 diabetes mellitus without complications Status: Chronic Assessment and Plan: * A1c 9.6. Patient noted he knew he was prediabetic and has been on metformin. He has been seen by family life educator. * Last bg 178 this morning but was in 300s yesterday. Anticipate possible discharge with Lantus. (9) Neuropathy: Code(s): G62.9 - Polyneuropathy, unspecified Status: Acute Assessment and Plan: * Notes he still has shooting pain across his toes EDEL today, R>L. Continue gabapentin. Will benefit from tighter glycemic control. * Differential includes gout, reportedly no improvement with colchicine; continue indomethacin PRN and monitor renal function. * Venous dopplers show no DVT EDEL legs. Recommend regular foot checks and follow up with PCP, consider podiatry follow up given new DM diagnosis. Subjective Date/time seen: 05/09/20 09:35 Interval history: Mr. Stephen is a 64yo M admitted for CHF exacerbation with lower extremity pain. He reports feeling a bit better today; he feels like his leg swelling has not gotten much better since he came in however nursing tells me his swelling i
--- NOTE | 2020-05-09 09:55 | PM.IMPN ---
Progress Note: A&P Assessment and Plan (1) Congestive heart failure: Code(s): I50.9 - Heart failure, unspecified Status: Chronic Assessment and Plan: Acute on chronic CHF; appreciate cardiology recommendations. Remains on 60mg BID of Lasix today and received a dose of metolazone. Monitor I&Os closely, montior renal function. May have been precipitated by nonadherance to low sodium diet. (2) Chronic respiratory failure with hypoxia and hypercapnia: Code(s): J96.11 - Chronic respiratory failure with hypoxia; J96.12 - Chronic respiratory failure with hypercapnia Status: Chronic Assessment and Plan: Secondary to COPD and reported interstitial lung disease. His senior sales director is Dr Brice. He is tolerating his home O2 requirement of 6 L nasal cannula. Continue O2 and CPAP when he sleeps. (3) Obstructive sleep apnea: Code(s): G47.33 - Obstructive sleep apnea (adult) (pediatric) Status: Chronic Assessment and Plan: CPAP. (4) HTN (hypertension) with goal to be determined: Code(s): I10 - Essential (primary) hypertension Status: Chronic Assessment and Plan: Last BP 100/72. Continue to monitor closely given his need for increased diuresis. (5) Hyperlipidemia: Code(s): E78.5 - Hyperlipidemia, unspecified Status: Chronic Assessment and Plan: Continue home statin therapy. (6) COPD (chronic obstructive pulmonary disease): Code(s): J44.9 - Chronic obstructive pulmonary disease, unspecified Status: Chronic Assessment and Plan: Patient has interstitial lung disease and is on mycophenolate, daily low-dose prednisone. Continue maintenance inhalers. No acute respiratory distress today. (7) CAD (coronary artery disease): Code(s): I25.10 - Atherosclerotic heart disease of [place] coronary artery without angina pectoris Status: Chronic Assessment and Plan: Stable, no chest pain today. Appears he has a history of ischemic heart disease and has declined intervention in the past. His environmental geologist is Dr Mejia. (8) DM2 (diabetes mellitus, type 2): Code(s): E11.9 - Type 2 diabetes mellitus without complications Status: Chronic Assessment and Plan: A1c 9.6. Patient noted he knew he was prediabetic and has been on metformin. He has been seen by community educator. Last bg 178 this morning but was in 300s yesterday. Anticipate possible discharge with Lantus. (9) Neuropathy: Code(s): G62.9 - Polyneuropathy, unspecified Status: Acute Assessment and Plan: Notes he still has shooting pain across his toes EDEL today, R>L. Continue gabapentin. Will benefit from tighter glycemic control. Differential includes gout, reportedly no improvement with colchicine; continue indomethacin PRN and monitor renal function. Venous dopplers show no DVT EDEL legs. Recommend regular foot checks and follow up with PCP, consider podiatry follow up given new DM diagnosis. Subjective Date/time seen: 05/09/20 09:35 Interval history: Mr. Stephen is a 64yo M admitted for CHF exacerbation with lower extremity pain. He reports feeling a bit better today; he feels like his leg swelling has not gotten much better since he came in however nursing tells me his swelling is certainly improving compared to days prior. He denies chest pain, reports mild shortness of breath no worse than his baseline. Nonproductive cough he tells me is baseline. Tolerated breakfast without nausea, vomiting or abdominal pain. Tells me that he wishes he would've gone to [place] because all of his specialists are there. Review of Systems Review of Systems: Narrative: Twelve sy
--- NOTE | 2020-05-09 12:28 | PM.PNCARD ---
Progress Note: A&P Assessment and Plan (1) CAD (coronary artery disease): Code(s): I25.10 - Atherosclerotic heart disease of [place] coronary artery without angina pectoris Status: Chronic Assessment and Plan: Unfortunately, previously deemed not a CABG candidate. Continue aspirin, statin, metoprolol. (2) Nonsustained ventricular tachycardia: Code(s): I47.2 - Ventricular tachycardia Status: Acute Assessment and Plan: continue metoprolol. Controlled. Pt at risk given LV dysfunction, CAD. Monitor electrolytes. K+ stable this AM. Check Mg level in AM. (3) Ischemic cardiomyopathy: Code(s): I25.5 - Ischemic cardiomyopathy Status: Acute Assessment and Plan: Would recommend UMER-inhibitor or ARB. Uncertain as to why he is not on UMER-inhibitor but possibly due to renal function. Defer this to his primary garage worker as we will hold given balance with renal function and diuresis. (4) Congestive heart failure: Code(s): I50.9 - Heart failure, unspecified Status: Chronic Assessment and Plan: Continue diuresis per nephrology Metolazone 5 mg p.o. x1 this morning. Monitor input and output, daily weight. Negative fluid balance declining over the past 48 hours. Explained to patient importance of diuresing at an appropriately aggressive rate to help minimize risk for further acute renal failure. Patient verbalized understanding. (5) Hyperlipidemia: Code(s): E78.5 - Hyperlipidemia, unspecified Status: Chronic Assessment and Plan: continue statin Subjective Date/time seen: Date of Service: 05/09/20 12:28 Follow-up for multi vessel CAD, ischemic cardiomyopathy, CHF Interval history: Denies shortness of breath or chest pain. Four beat nonsustained VT on telemetry. No palpitations. Complains of worsening discomfort in joints of right toes, pain in both feet noted at presentation improved overall otherwise. Denies orthopnea or dizziness. Review of Systems Review of Systems: All systems reviewed & are unremarkable except as noted in HPI and below Constitutional: Constitutional: Denies chills, Denies excessive sweating, Denies fatigue, Denies headache(s) and Reports weakness Eyes: Eyes: Denies blurry vision ENT: Denies Normal hearing present, Denies headache(s), Denies lip swelling and Denies neck pain Cardiovascular: Cardiovascular: Denies chest pain, Reports pedal edema and Reports dyspnea on exertion Respiratory: Respiratory: Reports dyspnea on exertion Gastrointestinal: Gastrointestinal: Denies abdominal pain Genitourinary: Genitourinary: Denies dysuria Musculoskeletal: Musculoskeletal: Denies neck pain Integumentary/Breasts: Skin/Breast: Reports wounds Neurologic: Denies Normal hearing present, Denies confusion, Denies headache(s) and Reports weakness Psychiatric: Psychiatric: Denies anxiety and Denies confusion Endocrine: Endocrine: Denies excessive sweating and Denies fatigue Hematologic/Lymphatic: Hematologic/Lymphatic: Denies easy bleeding and Denies easy bruising Allergic/Immunologic: Allergic/Immunologic: Denies GI upset with certain foods and Denies lip swelling Exam Narrative: Exam Narrative: Alert and oriented appears stated age Const: General: comfortable and no acute distress; No confusion Orientation/consciousness: No confusion HENMT: General nose exam: Normal nares present Mouth: Yes dry mucous membranes Other: nasal cannula in place Eyes: Sclera: sclerae normal Pupils: Equal, round and reactive pupils present Neck: Neck: supple and no JVD Thyroid: thyroid normal Other: No carotid bruits, difficult to assess JVD given his obese body habitus Resp: Effort & Inspection: normal respiratory effort Auscultation: diminished lung sounds Other: Diminished breath sounds diffusely without rales or wheezes noted. Cardio: Rate: regular rate Rhythm: regular rhythm GI: Auscultation: normal bowel sounds
[2020-05-09] MEDS: INSULIN ASPART (*BKC) 100 UNITS/ML SUB-Q ×3 (12:52→22:23)
[2020-05-09 13:00] LABS: Glucose Point of Care 272 (65-105)
--- NOTE | 2020-05-09 13:58 | PCCCNOTE ---
On 05/09/20, the student, Sis Scott, provided care and completed [facility] documentation on this patient. I have reviewed the student's documentation and agree with the findings.
[2020-05-09 18:35] LABS: Glucose Point of Care 296 (65-105)
[2020-05-09] MEDS: INSULIN GLARGINE (*BKC) 100 UNITS/ML 13 UNITS SUB-Q (22:23)
[2020-05-09] MEDS: ZOLPIDEM TARTRATE 5 MG TABLET 10 MG PO (22:30)
[2020-05-10] VITALS (10 sets, daily range): BP systolic 102–113; BP diastolic 62–79; PULSE 65–80; RESP 14–20; TEMP 35.8–36.6; O2SAT 90–100
[2020-05-10 01:13] LABS: Glucose Point of Care 256 (65-105)
[2020-05-10 01:13] LABS: Glucose Point of Care 444 (65-105)
[2020-05-10 05:40] LABS: Basophils Absolute Auto 0.1 K/mm3 (0.0-0.1); Basophils Percent Auto 0.6 % (0.2-1.2); Eosinophils Absolute Auto 0.3 K/mm3 (0-0.3); Eosinophils Percent Auto 2.6 % (0-4.4); Hematocrit 32.7 % (42.0-52.0); Hemoglobin 10.6 g/dL (14.0-18.0); Immature Granulocyte Absolute 0.29 K/mm3 (0.00-0.031); Lymphocytes Absolute Auto 2.01 K/mm3 (0.9-3.2); Mean Corpuscular HGB Conc 32.4 g/dl (32-36); Mean Corpuscular Hemoglobin 30.5 pg (26-34); Mean Platelet Volume 10.8 fl (7.4-10.4); Monocytes Absolute Auto 0.8 K/mm3 (0.1-0.6); Monocytes Percent Auto 8.3 % (2.6-8.5); Neutrophils Absolute Auto 6.2 K/mm3 (1.3-6.7); Neutrophils Percent Auto 64.5 % (45.5-73.1); Platelet Count Result 231 k/mm3 (150-375); Red Blood Count 3.48 M/mm3 (4.6-6.20); Red Cell Distribution Width 14.2 % (11.5-14.5); White Blood Count 9.6 K/mm3 (4.5-10.0)
[2020-05-10 05:52] LABS: Albumin Level 3.7 g/dL (3.5-5.1); Blood Urea Nitrogen 62 mg/dL (9-20); Calcium 8.5 mg/dL (8.4-10.2); Carbon Dioxide 39 mmol/L (22-30); Chloride 92 mmol/L (98-107); Estimated CRCL calculation 61 ml/min; Estimated Glomerular Filt Rate 56; Glucose 218 mg/dL (75-110); Magnesium 2.5 mg/dL (1.6-2.3); Phosphorus 4.5 mg/dL (2.5-4.5); Potassium 4.2 mmol/L (3.4-5.0); Sodium 136 mmol/L (137-145)
[2020-05-10] MEDS: GABAPENTIN 300 MG CAPSULE PO (06:54)
--- NOTE | 2020-05-10 07:36 | P.PNNP_ITS ---
Progress Note: A&P Assessment and Plan (1) YANELIS (acute kidney injury): Code(s): N17.9 - Acute kidney failure, unspecified Status: Acute Assessment and Plan: * Acute kidney injury - component of renal venous hypertension * urine electrolytes non pre renal but on diuretics * Normal renal ultrasound * no evidence of significant proteinuria * He is getting diuretics because he does have some swelling. * Chest x-ray looks okay * He is still swollen but this is fairly mild.. * His creatinine has returned to normal. * He can continue adjustments of diuretics as an outpatient. * Discharge okay from renal standpoint. (2) CHF exacerbation: Code(s): I50.9 - Heart failure, unspecified Status: Acute Assessment and Plan: * clinically improving * Gradual reduction in edema. * No shortness of breath and chest x-ray looks okay (3) Ischemic cardiomyopathy: Code(s): I25.5 - Ischemic cardiomyopathy Status: Acute Assessment and Plan: * repeat Echo here demonstrates relative stability * possibly playing a role with #1 (mild degree of cardiorenal syndrome?) * Cardiology following (4) Nonsustained ventricular tachycardia: Code(s): I47.2 - Ventricular tachycardia Status: Acute Assessment and Plan: * Cardiology following (5) Gout flare: Code(s): M10.9 - Gout, unspecified Status: Acute Assessment and Plan: * Uric acid is very high. * Not responding to colchicine * On steroids. This may have a role in his edema as well. * He is on allopurinol. (6) Hypertension: Code(s): I10 - Essential (primary) hypertension Status: Chronic Assessment and Plan: * Systolic blood pressure between 100 and 120. Additional Plan Subjective Date/time seen: 05/10/20 07:36 Interval history: The patient feels better. Feet are doing fine. No shortness of breath. He still has a little bit of swelling. He made a little bit more urine yesterday. Review of Systems Cardiovascular: Cardiovascular: Reports no additional cardiovascular complaints Respiratory: Respiratory: Reports no additional respiratory complaints Gastrointestinal: Gastrointestinal: Reports no additional gastrointestinal complaints Genitourinary: Genitourinary: Reports no additional male genitourinary complaints Exam Narrative: Exam Narrative: WDWN in NAD skin no rash head ncat lungs clear cor reg no rub abd BS+ nontender and soft ext 1+ edema. Objective Data Vital Signs Vital Signs: Vital Signs - 24 hr 05/09/20 08:00 05/09/20 08:52 05/09/20 08:57 Temperature Pulse Rate 75 74 Respiratory Rate Blood Pressure Pulse Oximetry 96 05/09/20 10:00 05/09/20 12:00 05/09/20 14:00 Temperature 36.8 C 36.8 C Pulse Rate 66 67 72 Respiratory Rate 17 17 Blood Pressure 127/68 110/84 Pulse Oximetry 98 97 05/09/20 16:00 05/09/20 18:00 05/09/20 20:00 Temperature 36.4 C 35.7 C L Pulse Rate 73 72 76 Respiratory Rate 18 20 Blood Pressure 128/85 112/80 Pulse Oximetry 100 96 05/09/20 21:06 05/09/20 22:00 05/09/20 23:49 Temperature 35.7 C L
--- NOTE | 2020-05-10 07:36 | PM.PNNEP ---
Progress Note: A&P Assessment and Plan (1) YANELIS (acute kidney injury): Code(s): N17.9 - Acute kidney failure, unspecified Status: Acute Assessment and Plan: Acute kidney injury - component of renal venous hypertension urine electrolytes non pre renal but on diuretics Normal renal ultrasound no evidence of significant proteinuria He is getting diuretics because he does have some swelling. Chest x-ray looks okay He is still swollen but this is fairly mild.. His creatinine has returned to normal. He can continue adjustments of diuretics as an outpatient. Discharge okay from renal standpoint. (2) CHF exacerbation: Code(s): I50.9 - Heart failure, unspecified Status: Acute Assessment and Plan: clinically improving Gradual reduction in edema. No shortness of breath and chest x-ray looks okay (3) Ischemic cardiomyopathy: Code(s): I25.5 - Ischemic cardiomyopathy Status: Acute Assessment and Plan: repeat Echo here demonstrates relative stability possibly playing a role with #1 (mild degree of cardiorenal syndrome?) Cardiology following (4) Nonsustained ventricular tachycardia: Code(s): I47.2 - Ventricular tachycardia Status: Acute Assessment and Plan: Cardiology following (5) Gout flare: Code(s): M10.9 - Gout, unspecified Status: Acute Assessment and Plan: Uric acid is very high. Not responding to colchicine On steroids. This may have a role in his edema as well. He is on allopurinol. (6) Hypertension: Code(s): I10 - Essential (primary) hypertension Status: Chronic Assessment and Plan: Systolic blood pressure between 100 and 120. Additional Plan Subjective Date/time seen: 05/10/20 07:36 Interval history: The patient feels better. Feet are doing fine. No shortness of breath. He still has a little bit of swelling. He made a little bit more urine yesterday. Review of Systems Cardiovascular: Cardiovascular: Reports no additional cardiovascular complaints Respiratory: Respiratory: Reports no additional respiratory complaints Gastrointestinal: Gastrointestinal: Reports no additional gastrointestinal complaints Genitourinary: Genitourinary: Reports no additional male genitourinary complaints Exam Narrative: Exam Narrative: WDWN in NAD skin no rash head ncat lungs clear cor reg no rub abd BS+ nontender and soft ext 1+ edema. Objective Data Vital Signs Vital Signs: Vital Signs - 24 hr 05/09/20 08:00 05/09/20 08:52 05/09/20 08:57 Temperature Pulse Rate 75 74 Respiratory Rate Blood Pressure Pulse Oximetry 96 05/09/20 10:00 05/09/20 12:00 05/09/20 14:00 Temperature 36.8 C 36.8 C Pulse Rate 66 67 72 Respiratory Rate 17 17 Blood Pressure 127/68 110/84 Pulse Oximetry 98 97 05/09/20 16:00 05/09/20 18:00 05/09/20 20:00 Temperature 36.4 C 35.7 C L Pulse Rate 73 72 76 Respiratory Rate 18 20 Blood Pressure 128/85 112/80 Pulse Oximetry 100 96 05/09/20 21:06 05/09/20 22:00 05/09/20 23:49 Temperature 35.7 C L Pulse Rate 76 56 L Respiratory Rate 20 13 Blood Pressure 112/80 Pulse Oximetry 97 96 96 05/10/20 02:00 05/10/20 02:36 05/10/20 04:00 Temperature 35.8 C L 35.8 C L Pulse Rate 65 71 69 Respiratory Rate 20 14 20 Blood Pressure 105/62 107/69 Pulse Oximetry 95 90 100 Intake/Output Intake/Output: Intake & Output 05/07/20 05/08/20 05/09/20 05/10/20 23:59 23:59 23:59 23:59 Intake Total 850 1530 250 Output Total 4719 [id number] [id number] [id number] Meds/Results Medications: Active Medications Generic Name Dose Route Start Last Admin Trade Name Freq PRN Reason Stop Dose Admin Hydrocodone Bitart/Acetaminophen 1 tab 05/03/20 22:44 05/07/20 00:00 [place] 5-325 Mg PO 1 tab Q6H PRN Administration Pain Rated 4-6 Allopurinol 100 mg 05/04/20 09:00
[2020-05-10 07:44] LABS: Glucose Point of Care 179 (65-105)
[2020-05-10] MEDS: FERROUS SULFATE 324 MG TABLET PO (08:38)
[2020-05-10] MEDS: FUROSEMIDE INJ 100 MG/10 ML VIAL 60 MG IV PUSH (08:38)
[2020-05-10] MEDS: ATORVASTATIN 40 MG TABLET PO (08:39)
[2020-05-10] MEDS: SILVERGEL (ELTA) 45 ML 1 APPLIC TOPICAL (08:39)
[2020-05-10] MEDS: METOPROLOL SUCCINATE EXT REL 50 MG TABCR PO (08:39)
[2020-05-10] MEDS: ASPIRIN 81 MG ENTERIC TABLET PO (08:39)
[2020-05-10] MEDS: predniSONE 10 MG TABLET PO (08:39)
[2020-05-10] MEDS: allopurinoL 100 MG TABLET PO (08:39)
[2020-05-10 11:12] LABS: Glucose Point of Care 278 (65-105)
[2020-05-10] MEDS: INSULIN ASPART (*BKC) 100 UNITS/ML SUB-Q (11:15)
--- NOTE | 2020-05-10 11:30 | PCCDE ---
diabetes education: spoke with Mady DEL REAL-plan for pt to go home with OD Lantus, no correction/sliding scale to keep things simple for patient. Met with pt; pt denies questions. He is encouraged to test BG at least BID and bring results to primary care to review and adjust meds as needed. 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 Again reviewed the sx of hyperglycemia and confirmed that high BG POLITICAL SCIENTIST was likely contributing and now that it is being treated he should feel better. Encouraged pt to call educator zac.
--- NOTE | 2020-05-10 13:29 | PM.PNCARD ---
Progress Note: A&P Assessment and Plan (1) CAD (coronary artery disease): Qualifiers: Coronary Disease-Associated Artery/Lesion type: [place] artery [place] vs. transplanted heart: [place] heart Associated angina: without angina Qualified Code(s): I25.10 - Atherosclerotic heart disease of [place] coronary artery without angina pectoris Code(s): I25.10 - Atherosclerotic heart disease of [place] coronary artery without angina pectoris Status: Chronic Assessment and Plan: Unfortunately, previously deemed not a CABG candidate. Continue aspirin, statin, metoprolol. (2) Nonsustained ventricular tachycardia: Code(s): I47.2 - Ventricular tachycardia Status: Acute Assessment and Plan: Continue metoprolol. Controlled. Given LV dysfunction he is at risk. Potassium and magnesium are stable. Monitor as an outpatient (3) Ischemic cardiomyopathy: Code(s): I25.5 - Ischemic cardiomyopathy Status: Acute Assessment and Plan: Recommend UMER-inhibitor or ARB. Uncertain as to why he is not on UMER-inhibitor or ARB but possibly due to renal function. Defer this to his primary settlement clerk as we will hold given balance with renal function and diuresis. (4) Congestive heart failure: Qualifiers: Heart failure type: systolic Heart failure chronicity: acute on chronic Qualified Code(s): I50.23 - Acute on chronic systolic (congestive) heart failure Code(s): I50.9 - Heart failure, unspecified Status: Chronic Assessment and Plan: Diuresis per nephrology. Negative again yesterday. (5) Hyperlipidemia: Qualifiers: Hyperlipidemia type: mixed hyperlipidemia Qualified Code(s): E78.2 - Mixed hyperlipidemia Code(s): E78.5 - Hyperlipidemia, unspecified Status: Chronic Assessment and Plan: Continue statin Additional Plan OK to discharge from cardiac standpoint See discharge instructions for follow-up Plan discussed with Dr. Henry 0439 05/10/2020 Time Spent With Patient Time with patient: less than 15 minutes Subjective Date/time seen: 05/10/20 13:29 Interval history: Follow-up for: Nonsustained VT, CAD, ischemic cardiomyopathy Date of service: 05/10/2020 Subjective: No chest discomfort. Denies shortness of breath. No lightheadedness or palpitations. Lower extremity edema is improved. Review of Systems Constitutional: Constitutional: Denies chills, Denies excessive sweating, Denies fatigue, Denies headache(s) and Reports weakness Eyes: Eyes: Denies blurry vision ENT: Denies Normal hearing present, Denies headache(s), Denies lip swelling and Denies neck pain Cardiovascular: Cardiovascular: Denies chest pain, Reports pedal edema (Improved) and Denies dyspnea on exertion Comments: Home oxygen Respiratory: Respiratory: Denies dyspnea on exertion Gastrointestinal: Gastrointestinal: Denies abdominal pain Genitourinary: Genitourinary: Denies dysuria Musculoskeletal: Musculoskeletal: Denies neck pain Integumentary/Breasts: Skin/Breast: Reports wounds Neurologic: Denies Normal hearing present, Denies confusion, Denies headache(s) and Reports weakness Psychiatric: Psychiatric: Denies anxiety and Denies confusion Endocrine: Endocrine: Denies excessive sweating and Denies fatigue Hematologic/Lymphatic: Hematologic/Lymphatic: Denies easy bleeding and Reports easy bruising Allergic/Immunologic: Allergic/Immunologic: Denies GI upset with certain foods and Denies lip swelling Exam Narrative: Exam Narrative: Alert and oriented appears stated age. Up in chair. Const: General: comfortable and no acute distress; No confusion Orientation/consciousness: No confusion HENMT: General nose exam: Normal nares present and no epistaxis Mouth: Yes moist mucous membranes Ey
--- NOTE | 2020-05-10 13:54 | PM.DS ---
DS: Admitting Diagnosis Admitting Diagnosis Admitting Diagnosis: Heart failure, unspecified DS: Discharge Diagnosis Discharge Diagnosis (1) Congestive heart failure: Qualifiers: Heart failure type: systolic Heart failure chronicity: acute on chronic Qualified Code(s): I50.23 - Acute on chronic systolic (congestive) heart failure Code(s): I50.9 - Heart failure, unspecified Status: Chronic Assessment and Plan: Date of Service 05/10/20 Mr. Stephen is a 64yo M with history of CHF, COPD and interstitial lung disease, sleep apnea, hypertension, and coronary artery disease who presented to the ED for evaluation of increasing shortness of breath and bilateral lower extremity edema over the last 1 week. His established head cager is Dr. Mejia, and his research tech is Dr. Brice. He was treated here for acute on chronic congestive heart failure with diuresis by our cardiology and nephrology services. Echocardiogram demonstrated reduced systolic function EF 35-40%, further detailed below. It is felt that his exacerbation may be related to nonadherance to a low-sodium diet. Creatinine fluctuated between 1.2. and 1.6, he may have a component of chronic kidney disease which can continue to be monitored outpatient, especially given his need for diuretics. Hgb A1c is 9.6. He noted that he was previously diagnosed with prediabetes. He was educated on his new diagnosis type 2 diabetes and was seen by the revenue accountant. Detailed discussions were held regarding the importance of regular glucose monitoring and tighter glycemic control. He complained of shooting pain in bilateral toes with decreased sensation. He was educated on the importance of foot checks and will need to follow-up with PCP for management of DM. He was started on Lantus each evening and he will remain on his home metformin as well. His swelling and shortness of breath improved with increased diuresis and he was discharged to continue his home dose of furosemide 40 mg BID. He was hemodynamically stable for discharge 05/10/2020 with instructions to follow-up with his primary care provider within 1 week, in addition to his head cager and research tech. Consultations: -- Cardiology - Dr Braxton -- Nephrology - Dr Branch (2) Chronic respiratory failure with hypoxia and hypercapnia: Code(s): J96.11 - Chronic respiratory failure with hypoxia; J96.12 - Chronic respiratory failure with hypercapnia Status: Chronic Assessment and Plan: Secondary to COPD and reported interstitial lung disease. His research tech is Dr Brice. He is tolerating his home O2 requirement of 6 L nasal cannula. Maintained on his home O2 and CPAP. (3) Obstructive sleep apnea: Code(s): G47.33 - Obstructive sleep apnea (adult) (pediatric) Status: Chronic Assessment and Plan: CPAP. (4) HTN (hypertension) with goal to be determined: Code(s): I10 - Essential (primary) hypertension Status: Chronic Assessment and Plan: Last BP 102/79. Maintained on his home metoprolol and Lasix. (5) Hyperlipidemia: Qualifiers: Hyperlipidemia type: mixed hyperlipidemia Qualified Code(s): E78.2 - Mixed hyperlipidemia Code(s): E78.5 - Hyperlipidemia, unspecified Status: Chronic Assessment and Plan: Continue home statin therapy. (6) COPD (chronic obstructive pulmonary disease): Code(s): J44.9 - Chronic obstructive pulmonary disease, unspecified Status: Chronic Assessment and Plan: Patient has interstitial lung disease and is on mycophenolate, daily low-dose prednisone. Continue maintenance inhalers. No acute respiratory distress. He can follow-up with his established research tech.
[2020-05-10 15:41] LABS: Chloride Rand Ur 55 mmol/L (32-290); Chloride/Creatinine Rand Ur 36 (23-275); Creatinine Random Urine 152 mg/dL (20-320)
== END 2020-05-10 15:48 | disposition home or self-care (01) | DRG 194 ==
LOC: ANHED 14:25 → ANHIMU 14:45 → ANH2MED 05-04 18:32
PROVIDERS: Emergency Medicine; Emergency Medicine Emergency Medical Services; Internal Medicine Cardiovascular Disease; Internal Medicine Nephrology; Nurse Practitioner; Physician Assistant; Admitting Provider Internal Medicine; Emergency Provider Emergency Medicine; PCP Nurse Practitioner Family; Visit Provider Internal Medicine
DX: I13.0 Hypertensive heart and chronic kidney disease with heart failure and stage 1 through stage 4 chronic kidney disease, or unspecified chronic kidney disease (principal); I50.43 Acute on chronic combined systolic (congestive) and diastolic (congestive) heart failure; E11.22 Type 2 diabetes mellitus with diabetic chronic kidney disease; N18.9 Chronic kidney disease, unspecified; N17.9 Acute kidney failure, unspecified; E11.42 Type 2 diabetes mellitus with diabetic polyneuropathy; J44.9 Chronic obstructive pulmonary disease, unspecified; I25.10 Atherosclerotic heart disease of native coronary artery without angina pectoris; J96.11 Chronic respiratory failure with hypoxia; J96.12 Chronic respiratory failure with hypercapnia; G47.33 Obstructive sleep apnea (adult) (pediatric); I25.5 Ischemic cardiomyopathy; I47.2 Ventricular tachycardia; E78.5 Hyperlipidemia, unspecified; M10.9 Gout, unspecified; Z66 Do not resuscitate; Z87.891 Personal history of nicotine dependence; Z99.81 Dependence on supplemental oxygen; I25.2 Old myocardial infarction; Z86.718 Personal history of other venous thrombosis and embolism
CPT/HCPCS: 36415; 36600; 71045; 71046; 76775; 80048; 80069; 80076; 81001; 81050; 82436; 82570; 82805; 83036; 83735; 83880; 84100; 84156; 84300; 84436; 84443; 84484; 84550; 85014; 85018; 85025; 85027; 85610; 85730; 85999; 93005; 93970; 94640; 96374; 96375; 96376; 99285; A9270; C8929; G0378; G0379; J1815; J1940; J7512; Q9957

== ENCOUNTER 2020-08-04 21:01 | Emergency (ER) | payer OTHER, SELFPAY ==
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
[2020-08-04 21:02] VITALS: BP 105/63; PULSE 69; RESP 22; TEMP 36.3; O2SAT 95
--- NOTE | 2020-08-04 21:11 | ED.UPPEXIN ---
HPI - Extremity Injury (Upper) General Chief Complaint: Extremity Injury, Upper Stated Complaint: FALL Time Seen by Provider: 08/04/20 21:08 History of Present Illness HPI narrative: He went to sit down on a bar stool this evening and fell out from under him. He fell onto the left elbow and shoulder. He has moderate pain in the shoulder. He was noted to have skin tears to the left elbow, althouhg he denies any significant pain there. He has a h/o COPD, CHF, CAD. He is on 6 liters of O2 at all times. He says that he is more SOB and has recent 15 pound weight gain. He does not want to address these issues today. Related Data Allergies Allergy/AdvReac Type Severity Reaction Status Date / Time cyclobenzaprine Allergy Unknown Other Verified 03/25/20 13:45 Review of Systems Review of Systems: All systems reviewed & are unremarkable except as noted in HPI and below Constitutional: Constitutional: Denies fever(s) and Denies weakness ENT: Denies dizziness Cardiovascular: Cardiovascular: Denies chest pain Respiratory: Respiratory: Reports cough and Reports dyspnea Gastrointestinal: Gastrointestinal: Denies abdominal pain Musculoskeletal: Musculoskeletal: Denies back pain Neurologic: Denies weakness [facility] Surgical History Surgical History (Updated 08/04/20 @ 22:25 by Anthony Shirley MD) History of cardiac cath Social History Social History Gender identity (if verbalized by the patient): Male Exam Const: General: no acute distress, alert and ill appearing chronically Nutritional Appearance: obese Orientation/consciousness: patient oriented x3 HENMT: Head: normal to inspection Resp: Auscultation: crackles and diminished lung sounds Cardio: Rate: regular rate Rhythm: regular rhythm Skin: Other: skin tear to left elbow Neuro: General: patient oriented x3, moves all extremities, no focal motor deficits and CN's II-XI intact bilaterally Speech: normal speech Gait exam (Neuro): Normal gait present Extrem: Other: 2+ bilateral foot and ankle edema Course Vital Signs Vital signs: Vital Signs Temperature 36.3 C L 08/04/20 21:02 Pulse Rate 69 08/04/20 21:02 Respiratory Rate 22 H 08/04/20 21:02 Blood Pressure 105/63 08/04/20 21:02 Pulse Oximetry 95 08/04/20 21:02 Temperature 36.3 C L 08/04/20 21:02 Pulse Rate 69 08/04/20 21:02 Respiratory Rate 22 H 08/04/20 21:02 Blood Pressure 105/63 08/04/20 21:02 Pulse Oximetry 95 08/04/20 21:02 MDM - Extremity Injury (Upper) Medical Records Attestation: I reviewed the patient's medical records. Imaging Data Radiologist's impression: ITS Impressions Shoulder X-Ray 08/04/20 21:34 IMPRESSION: 1. Left shoulder exam without acute osseous findings. Discharge Plan Discharge Clinical Impression: Contusion of left shoulder Qualifiers: Encounter type: initial encounter Qualified Code(s): S40.012A - Contusion of left shoulder, initial encounter Skin tear of elbow without complication Qualifiers: Encounter type: initial encounter Laterality: left Qualified Code(s): S51.012A - Laceration without foreign body of left elbow, initial encounter Patient Disposition: Home, Self-Care Condition: Stable Instructions: Antibiotic Form, Skin Tear (ED), Shoulder Pain (ED) Follow-up/Referrals: TONE,VERONIKA GRIFFITH [Primary Care Provider] -
[2020-08-04 23:12] VITALS: BP 114/84; PULSE 62; RESP 18; TEMP 36.7; O2SAT 97
--- NOTE | 2020-08-04 23:20 | PC.NURSE ---
Per patient request, [employer] was called to give him a ride home. they report an ETA of 15-20 minutes.
== END 2020-08-04 23:30 | disposition home or self-care (01) ==
PROVIDERS: Emergency Provider Emergency Medicine; PCP Nurse Practitioner Family
DX: S40.012A Contusion of left shoulder, initial encounter (principal); W19.XXXA Unspecified fall, initial encounter; S51.012A Laceration without foreign body of left elbow, initial encounter; J44.9 Chronic obstructive pulmonary disease, unspecified; I50.9 Heart failure, unspecified; I25.10 Atherosclerotic heart disease of native coronary artery without angina pectoris; Z99.81 Dependence on supplemental oxygen
CPT/HCPCS: 73030; 99283

== ENCOUNTER 2020-09-19 08:56 | Outpatient (CLI) | payer OTHER, SELFPAY ==
--- NOTE | ~2020-09-19 | MR_ITS ---
EXAMINATION: MR shoulder LT wo con DATE: 09/19/2020 11:47 INDICATION: Chronic left shoulder pain TECHNIQUE: Magnetic resonance imaging (MRI) of the left shoulder was performed without intravenous co ntrast. Sequences included axial PD-weighted FS FSE, coronal oblique PD-weighted FS FSE, coronal obli que T2-weighted FS FSE, sagittal PD-weighted FS FSE, and sagittal T1-weighted SE. COMPARISON: Left shoulder radiographs dated 08/04/20 FINDINGS: Coracoacromial arch: Moderate acromioclavicular osteoarthritis. Meso acromial type os acromiale with fluid signal extendin g between the acromioclavicular joint space and across the acromial/os acromiale articulation. The ac romial undersurface is flat in morphology (type I). The coracoacromial ligament is normal. Rotator cuff: Mild supraspinatus and subscapularis tendinopathy and moderate infraspinatus tendinopathy. There is a large full-thickness tear along the greater tuberosity involving the entire infraspinatus tendon and small portion of the posterior most supraspinatus tendon. The tear measures approximately 2.5 cm AP at the greater tuberosity and 4 cm medial collateral with the retracted infraspinatus tear margin pos itioned approximately midway between the apex of the humeral head and the rim of the glenoid. The ter es minor tendon is normal. There is retraction of the infraspinatus muscle belly with prominent feath cameron muscular edema with additional epimysial edema about the supraspinatus muscle belly which could b e either reactive related to the tendon tears or secondary to associated muscle strains. No asymmetri c fatty muscular atrophy of either the rotator cuff or shoulder girdle. Biceps tendon, glenoid labrum and glenohumeral cartilage: Long head of the biceps tendon is normal. Glenoid labrum is normal. Partial-thickness cartilage loss along the cephalad half of the glenoid and along the inferomedial aspect of the humeral head. Fluid: Small glenohumeral joint effusion which extends to the full-thickness rotator cuff tear into the suba cromial/subdeltoid bursa and acromioclavicular joint. No loose osteochondral bodies. Bones: Normal marrow signal with no edema, fracture or abnormal marrow replacing process. IMPRESSION: 1. Full-thickness tear of the infraspinatus and posterior most supraspinatus tendons. 2. Mild glenohumeral and moderate acromioclavicular osteoarthritis. 3. Meso acromial os acromiale. Reviewed, dictated and finalized at location B. IMPRESSION: 1. Full-thickness tear of the infraspinatus and posterior most supraspinatus te ndons. 2. Mild glenohumeral and moderate acromioclavicular osteoarthritis. 3. Meso acromial os acromiale.
== END 2020-09-19 08:57 | disposition home or self-care (01) ==
PROVIDERS: PCP Nurse Practitioner Family; Visit Provider Nurse Practitioner Family
DX: M19.012 Primary osteoarthritis, left shoulder (principal); G89.29 Other chronic pain; Z98.890 Other specified postprocedural states; M75.122 Complete rotator cuff tear or rupture of left shoulder, not specified as traumatic
CPT/HCPCS: 73221

== ENCOUNTER 2020-09-30 16:33 | Emergency (ER) | payer OTHER, MEDICAID, SELFPAY ==
--- NOTE | ~2020-09-30 | XR_ITS ---
EXAMINATION: XR foot RT min 3V DATE: 09/30/2020 18:33 INDICATION: Right foot pain. TECHNIQUE: 4 views of right foot were obtained. COMPARISON: None. FINDINGS: There is mild hallux valgus. No fracture. There is severe osteoarthritis of first metatarso phalangeal joint and mild osteoarthritis of some of the midfoot joints, metatarsophalangeal joints, a nd interphalangeal joints. There are enthesophytes at the posterior and plantar aspects of calcaneal tuberosity. IMPRESSION: 1. Polyarticular osteoarthritis. 2. Mild hallux valgus. Reviewed, dictated and finalized at location A. ET ENGINE COMPONENT MECHANIC
[2020-09-30 17:28] VITALS: BP 115/72; PULSE 78; RESP 18; TEMP 36.1; O2SAT 92
--- NOTE | 2020-09-30 20:29 | ED.LOWEXIN ---
HPI - Extremity Injury (Lower) General Chief Complaint: Extremity Injury, Lower Stated Complaint: lower legs real swollen for days Time Seen by Provider: 09/30/20 18:14 Source: patient Mode of arrival: ambulatory Limitations: no limitations History of Present Illness HPI Narrative: Patient is a 65-year-old male complaining of right foot pain and redness that started approximately 1 week ago. Patient denies any injury. Patient denies any calf pain or swelling. Patient denies any chest pain or shortness of breath. Patient denies fever or chills. Related Data Allergies Allergy/AdvReac Type Severity Reaction Status Date / Time cyclobenzaprine AdvReac Unknown Other Verified 09/30/20 17:37 Review of Systems Review of Systems: All systems reviewed & are unremarkable except as noted in HPI and below Constitutional: Constitutional: Denies body ache(s), Denies chills, Denies excessive sweating, Denies fatigue, Denies fever(s), Denies headache(s), Denies lethargy, Denies malaise, Denies weakness and Denies weight loss Eyes: Eyes: Denies blurry vision, Denies change in vision and Denies loss of vision ENT: Denies dizziness, Denies ear discharge, Denies headache(s), Denies lip swelling, Denies epistaxis, Denies nasal congestion, Denies neck pain, Denies throat swelling and Denies tongue swelling Cardiovascular: Cardiovascular: Denies chest pain, Denies chest pain at rest, Denies chest pain with activity, Denies diaphoresis, Denies rapid heart rate, Denies edema, Denies irregular heart rhythm, Denies lightheadedness, Denies palpitations, Denies dyspnea and Denies dyspnea on exertion Respiratory: Respiratory: Denies chest congestion, Denies cough, Denies hemoptysis, Denies dyspnea and Denies dyspnea on exertion Gastrointestinal: Gastrointestinal: Denies abdominal pain, Denies melena, Denies hematochezia, Denies diarrhea, Denies nausea, Denies vomiting and Denies hematemesis Musculoskeletal: Musculoskeletal: Denies abnormal gait, Denies deformity, Denies limited range of motion, Denies neck pain and Denies numbness Neurologic: Denies Abnormal speech present, Denies abnormal gait, Denies confusion, Denies dizziness, Denies headache(s), Denies focal weakness, Denies loss of vision, Denies numbness, Denies Other visual disturbances, Denies Sensory deficit (Neuro) and Denies weakness Psychiatric: Psychiatric: Denies confusion, Denies depression, Denies auditory hallucinations, Denies homicidal ideation and Denies suicidal ideation Endocrine: Endocrine: Denies cold intolerance, Denies excessive sweating, Denies fatigue, Denies heat intolerance and Denies palpitations Hematologic/Lymphatic: Hematologic/Lymphatic: Denies easy bleeding and Denies easy bruising Allergic/Immunologic: Allergic/Immunologic: Denies lip swelling, Denies throat swelling and Denies tongue swelling [facility] Surgical History Surgical History (Updated 08/04/20 @ 22:25 by Anthony Shirley MD) History of cardiac cath Social History Social History Gender identity (if verbalized by the patient): Male Exam Const: General: cooperative, healthy appearing, comfortable, no acute distress, well developed, alert and awake; No confusion Orientation/consciousness: oriented to person, oriented to place, oriented to time, patient oriented x3 and No confusion Limitations: no limitations HENMT: Head: normal to inspection, normocephalic and atraumatic Ears: hearing grossly normal bilaterally, TM normal on the right and TM normal on the left General nose exam: Normal external nose present, Normal nares present and No nasal discharge present Face and sinus: normal facial exam Mouth: Yes Normal oral and palatal mucosa present, Yes lip normal, Yes tongue normal and Yes oropharynx normal Throat: posterior oropharynx normal, tonsils normal and uvula midline Eyes: General: appearance normal, both eyes and all related structures Pupil
[2020-09-30 21:25] VITALS: BP 118/81; PULSE 82; RESP 20; TEMP 36.7; O2SAT 94
== END 2020-09-30 21:30 | disposition home or self-care (01) ==
PROVIDERS: Emergency Provider Emergency Medicine; PCP Nurse Practitioner Family
DX: L03.115 Cellulitis of right lower limb (principal)
CPT/HCPCS: 73630; 99283

== ENCOUNTER 2020-10-08 12:33 | Emergency (ER) | payer OTHER, MEDICAID, SELFPAY ==
[2020-10-08] VITALS (16 sets, daily range): BP systolic 114; BP diastolic 63; PULSE 102; RESP 20; TEMP 36.1; O2SAT 80–99
--- NOTE | ~2020-10-08 | US_ITS ---
EXAMINATION: US venous doppler [facility] EXAM DATE: 10/08/2020 14:37 INDICATION: Left leg pain. TECHNIQUE: Multiple grayscale, color flow and Doppler images of the left lower extremity deep venous system were obtained and reviewed. Comparison is made to prior examination from 05/04/2020. FINDINGS: The left common femoral, femoral and profunda veins demonstrate normal color flow, respirat ory variation, augmentation and compressibility. Compressibility, color flow confirmed within the le ft popliteal, posterior tibial, peroneal, and greater saphenous veins. IMPRESSION: No left lower extremity deep venous thrombosis. Reviewed, dictated and finalized at location A. ISTICIAN
--- NOTE | ~2020-10-08 | XR_ITS ---
EXAMINATION: XR knee LT min 4V DATE: 10/08/2020 13:43 INDICATION: Left knee pain TECHNIQUE: Four views of the left knee were obtained. COMPARISON: None. FINDINGS: Alignment is normal. No fracture or osteochondral lesion. There is mild tricompartmental os teoarthritis characterized by tiny marginal osteophytes. Patellar enthesophytes are noted. There is n o joint effusion. Calcified atherosclerosis is noted. There is apparent fusiform enlargement of the p opliteal artery, implied from the appearance of calcified atherosclerosis. IMPRESSION: 1. Osteoarthritis without acute osseous abnormality. 2. 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 Reviewed, dictated and finalized at location A. MOTIVE ELECTRICAL HELPER
--- NOTE | ~2020-10-08 | XR_ITS ---
EXAMINATION: XR chest 1V EXAM DATE: 10/08/2020 14:38 INDICATION: Shortness of breath, cough. TECHNIQUE: Portable AP frontal chest x-ray was obtained. Comparison is made to prior examination from 05/09/2020. FINDINGS: Mild cardiomegaly and pulmonary vascular congestion. There is indistinct reticulation with a bibasal predominance which may indicate pulmonary edema. Infection not excludable. No confluent con solidation, pneumothorax or pleural effusion. There are mild bony degenerative changes. IMPRESSION: Cardiomegaly, congestion, possible mild pulmonary edema. CHF? Infection not excludable. Reviewed, dictated and finalized at location A. TIC ATTACHER COVERSTITCH IMPRESSION: Cardiomegaly, congestion, possible mild pulmonary edema. CHF? Infec tion not excludable.
--- NOTE | 2020-10-08 12:44 | PC.NURSE ---
patient here to ED room 22 with c/o joint pain all over .hx of COPD. wears 6L NC at home. arrived to this ED low on oxygen in his tank and low sats. see triage notes. alert.oriented. hooked up to our oxygen in room. assessments documented.
--- NOTE | 2020-10-08 13:05 | PC.NURSE ---
provider in room.
--- NOTE | 2020-10-08 13:52 | ED.EXTPRO ---
HPI - Extremity Problem General Chief complaint: Extremity Problem,Nontraumatic Stated complaint: Left knee pain was seen here last week Time Seen by Provider: 10/08/20 12:39 Source: patient Mode of arrival: ambulatory Limitations: no limitations History of Present Illness HPI Narrative: Patient 65-year-old male who presents to emergency department for evaluation of left knee pain and swelling noting anterior medial pain denies injury or trauma. Patient does note history of gout. Patient denies fever chills nausea vomiting. Patient notes difficulty with ambulation due to the swelling and tenderness. Patient on arrival in no distress does appear uncomfortable especially with movement of the left knee. Related Data Allergies Allergy/AdvReac Type Severity Reaction Status Date / Time cyclobenzaprine AdvReac Unknown Other Verified 09/30/20 17:37 Review of Systems Review of Systems: All systems reviewed & are unremarkable except as noted in HPI and below PMFSH Past Medical History Medical History (Updated 10/08/20 @ 17:21 by Walt Godfrey PA-C) COPD (chronic obstructive pulmonary disease) Coronary artery disease Hypertension Surgical History Surgical History History of cardiac cath Social History Social History (Updated 10/08/20 @ 13:53 by Walt Godfrey PA-C) Smoking status: Never smoker Gender identity (if verbalized by the patient): Male Exam Narrative: Exam Narrative: GENERAL: Ill -appearing, well-nourished, and in no acute distress. HEAD: Normocephalic, atraumatic. EYES: PERRLA and EOMI. ENT: Nares clear, no rhinorrhea or epistaxis. Mucous membranes moist. CHEST: Clear to auscultation. No respiratory distress. No wheezes rales or rhonchi HEART: Regular rate and rhythm. No murmur heard. Normal peripheral pulses. EXTREMITIES: Swelling of the left knee in comparison to the right with tenderness to palpation anteriorly. Slight redness and warmth to touch anteriorly with the remainder of knee nonerythematous slight effusion and swelling noted remainder of extremity no swelling SKIN: Warm, dry, no rash. NEURO: No focal deficits. Alert and oriented x3. Neurovascularly intact. Capillary refill less than 2 seconds PSYCH: Normal mood and affect. 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 Patient is afebrile nontoxic-appearing patient will be picked up by his son who will take the patient home. Vital Signs Vital signs: Vital Signs Temperature 97.0 F L 10/08/20 12:36 Pulse Rate 102 H 10/08/20 12:36 Respiratory Rate 10/08/20 12:36 Blood Pressure 114/63 10/08/20 12:36 Pulse Oximetry 80 L 10/08/20 12:36 Temperature 97.0 F L 10/08/20 12:36 Pulse Rate 102 H 10/08/20 12:36 Respiratory Rate 10/08/20 12:36 Blood Pressure 114/63 10/08/20 12:36 Pulse Oximetry 98 10/08/20 16:35 Procedures Joint Aspiration/Injection Joint Asp./Inject. 1: Joint Aspiration Date: 10/08/20 Joint Aspiration Time: 15:22 Time Out Performed: Yes Side of body: left Joint Aspirated: knee Ultrasound Guidance: No Skin Prep: Povidone-Iodine1% Local Anesthetic: lidocaine 1% and with epi Needle Size Used: 18G Fluid Obtained: clear (15 mL of merritt clear fluid) Patient Tolerated Procedure: well and no complications Complications: none Additional Comments: Antibiotic ointment 4 x 4 and Julian wrap placed post procedure neurovascularly intact pre and post procedure MDM - Extremity (Nontraumatic) MDM Narr
[2020-10-08 14:07] LABS: Basophils Absolute Auto 0.1 K/mm3 (0.0-0.1); Basophils Percent Auto 0.5 % (0.2-1.2); Eosinophils Absolute Auto 0.1 K/mm3 (0-0.3); Eosinophils Percent Auto 0.7 % (0-4.4); Hematocrit 46.9 % (42.0-52.0); Hemoglobin 14.5 g/dL (14.0-18.0); Immature Granulocyte Absolute 0.23 K/mm3 (0.00-0.031); Immature Granulocyte Percent A 1.6 % (0-0.5); Lymphocytes Percent Auto 6.8 % (18.3-44.2); Mean Corpuscular HGB Conc 30.9 g/dl (32-36); Mean Corpuscular Hemoglobin 30.2 pg (26-34); Mean Corpuscular Volume 97.7 fl (80-100); Mean Platelet Volume 10.8 fl (7.4-10.4); Monocytes Absolute Auto 0.9 K/mm3 (0.1-0.6); Monocytes Percent Auto 6.2 % (2.6-8.5); Neutrophils Absolute Auto 12.5 K/mm3 (1.3-6.7); Neutrophils Percent Auto 84.2 % (45.5-73.1); Platelet Count Result 227 k/mm3 (150-375); Red Cell Distribution Width 15.5 % (11.5-14.5); White Blood Count 14.8 K/mm3 (4.5-10.0)
[2020-10-08 14:17] LABS: Anion Gap 8 mmol/L (8-16); Blood Urea Nitrogen 57 mg/dL (9-20); Calcium 9.4 mg/dL (8.4-10.2); Carbon Dioxide 34 mmol/L (22-30); Chloride 97 mmol/L (98-107); Estimated Glomerular Filt Rate 47; Glucose 157 mg/dL (75-110); Potassium 5.6 mmol/L (3.4-5.0); Sodium 139 mmol/L (137-145)
--- NOTE | 2020-10-08 14:21 | ECG_ITS ---
Measurements Intervals Momence Rate: 81 P: 36 FL: 171 QRS: 239 QRSD: 198 T: -23 QT: 461 QTc: 538 Interpretive Statements SINUS RHYTHM ATRIAL PREMATURE COMPLEX RIGHT AXIS DEVIATION RIGHT BUNDLE BRANCH BLOCK CONSIDER INFERIOR INFARCT, AGE INDETERMINATE ST-T WAVE ABNORMALITY IN ANTEROLATERAL LEADS- CONSIDER ISCHEMIA ABNORMAL ECG Electronically Signed On 10-08-2020 17:59:46 SPINNERET CLEANER by Germain Bermeo D.O.
[2020-10-08 14:33] LABS: Erythrocyte Sedimentation Rate 25 mm/hr (0-20)
[2020-10-08 14:44] LABS: Uric Acid 9.8 mg/dL (3.5-8.5)
[2020-10-08] MEDS: SODIUM CHLORIDE 0.9% IV 500 ML 999 ML IV CONT (14:45)
--- NOTE | 2020-10-08 14:45 | PC.NURSE ---
back from ultrasound and xray. IVF started. back on monitor. EKG done.
--- NOTE | 2020-10-08 14:50 | PC.NURSE ---
resting on stretcher. SL inserted. labs drawn. IV acetaminophen started. patient updated on current treatment plan and expected wait time.
[2020-10-08] MEDS: LIDOCAINE/EPINEPHRINE 0.5%/1:200,000 50 ML VIAL (15:25)
--- NOTE | 2020-10-08 15:30 | PC.NURSE ---
provider at bedside to drain fluid from left knee. see MD notes.
--- NOTE | 2020-10-08 15:40 | PC.NURSE ---
some relief in pain after IV acetaminophen. patient with concerns regarding LE pain and recent cellulitis. lives alone. states he is having trouble getting up and out of bed. states this is his 3rd ED visit or MD visit for same issues. did fall but back in July. treated last week for cellulitis RLE. pain is now in left knee.
[2020-10-08] MEDS: COLCHICINE 0.6 MG TABLET 1.2 MG PO (15:45)
--- NOTE | 2020-10-08 15:45 | PC.NURSE ---
resting on stretcher. on BP and O2 monitors. alert. denies needs. IVF started. colchine given. all explained to patient.
[2020-10-08] MEDS: HYDROcodone/acetaminophen (*CRX) 5-325 MG TABLET 1 TAB PO (17:05)
[2020-10-08] MEDS: COLCHICINE 0.6 MG TABLET PO (17:05)
[2020-10-08 17:10] LABS: Appearance Synovial Fluid Clear (Clear); Color Synovial Fluid Yellow (Colorless); Source Synovial Fluid Synovial fluid
[2020-10-08 17:11] LABS: RBC Synovial Fluid 85 /uL (0-0)
--- NOTE | 2020-10-08 17:16 | PC.NURSE ---
provider at bedside.
[2020-10-08 17:17] LABS: Crystals Synovial Fluid None Seen (None Seen)
--- NOTE | 2020-10-08 17:32 | PC.NURSE ---
some pain relieved with initial dose of colchine. patient now given hydrocodone and 2nd dose of colchine as ordered. all reviewed with patient. has bandaid and dressing to left knee. denies needs. ice water given. resting on stretcher. aware we are waiting for final results from synovial fluid for disposition.
[2020-10-08 17:34] LABS: Lymphocytes Synovial Fluid 80 %; Monocytes Synovial Fluid 10 %; Neutrophils Synovial Fluid 10 % (0-25)
[2020-10-08 17:35] LABS: Nucleated Cell Synovial Fluid 32 /uL (0-200)
--- NOTE | 2020-10-08 18:30 | PC.NURSE ---
SL removed. monitors removed. patient assisted to wheelchair. states he will call his son for a ride from our waiting area.
== END 2020-10-08 18:43 | disposition home or self-care (01) ==
PROVIDERS: Emergency Medicine Emergency Medical Services; Emergency Provider Emergency Medicine; PCP Nurse Practitioner Family
DX: M25.562 Pain in left knee (principal); E87.5 Hyperkalemia; J44.9 Chronic obstructive pulmonary disease, unspecified; I25.10 Atherosclerotic heart disease of native coronary artery without angina pectoris; I10 Essential (primary) hypertension; M10.9 Gout, unspecified; M79.605 Pain in left leg; I72.4 Aneurysm of artery of lower extremity; M17.12 Unilateral primary osteoarthritis, left knee; I51.7 Cardiomegaly; R93.6 Abnormal findings on diagnostic imaging of limbs; I49.1 Atrial premature depolarization; I45.10 Unspecified right bundle-branch block; R94.31 Abnormal electrocardiogram [ECG] [EKG]; R91.8 Other nonspecific abnormal finding of lung field
CPT/HCPCS: 20610; 36415; 71045; 73564; 80048; 84550; 85025; 85652; 86140; 88108; 89051; 89060; 93005; 93971; 96365; 99284; A9270; J0131; J7040

== ENCOUNTER 2020-10-30 06:05 | Inpatient (IN) | payer OTHER, MEDICAID, SELFPAY ==
[2020-10-30] VITALS (12 sets, daily range): BP systolic 100–146; BP diastolic 63–76; PULSE 91–108; RESP 13–29; TEMP 36.2–36.6; O2SAT 91–98; BMI 39.4
--- NOTE | ~2020-10-30 | XR_ITS ---
EXAMINATION: XR chest 1V portable DATE: 10/30/2020 07:47 INDICATION: Cough and shortness of breath TECHNIQUE: frontal view of the chest was obtained. COMPARISON: Chest radiograph dated 10/08/2020 FINDINGS: Unchanged elevation of the left hemidiaphragm. Persistent increased interstitial pattern in the bilat eral mid and lower lung zones. No pneumothorax or pleural effusion. Cardiomegaly. Visualized bones an d soft tissues are unremarkable. IMPRESSION: 1. Increased interstitial pattern in the bilateral mid and lower lung zones most likely congestive he art failure related mild pulmonary edema with differential including pneumonia. 2. Cardiomegaly. Reviewed, dictated and finalized at location A. CIPAL TECHNOLOGIST IMPRESSION: 1. Increased interstitial pattern in the bilateral mid and lower lung zones mos t likely congestive heart failure related mild pulmonary edema with differentia l including pneumonia. 2. Cardiomegaly.
--- NOTE | ~2020-10-30 | US_ITS ---
EXAMINATION: US venous doppler [facility] DATE: 10/30/2020 15:19 INDICATION: Right lower limb edema. TECHNIQUE: Grayscale ultrasound images without and with compression and Doppler ultrasound images of the bilateral lower extremity veins were obtained. COMPARISON: Ultrasound 10/08/2020 FINDINGS: The visualized portions of right common femoral vein, profunda (deep) femoral vein, femoral vein, pop liteal vein, peroneal veins, posterior tibial veins, and greater saphenous vein outflow are patent. The visualized portions of left common femoral vein, profunda femoral vein, femoral vein, popliteal v ein, peroneal veins, posterior tibial veins, and greater saphenous vein outflow are patent. IMPRESSION: 1. No deep venous thrombosis. Reviewed, dictated and finalized at location B. STANT FILM EDITOR
--- NOTE | ~2020-10-30 | XR_ITS ---
EXAMINATION: XR hand RT min 3V DATE: 10/30/2020 07:47 INDICATION: Finger pain TECHNIQUE: Posteroanterior, oblique and lateral views of the right hand were obtained. COMPARISON: Right wrist radiographs dated 03/25/2020 FINDINGS: Bone alignment is normal. No fracture. Mild polyarticular osteoarthritis including at the distal radi oulnar joint, first carpometacarpal, first and second metacarpophalangeal and first interphalangeal a nd second distal interphalangeal joints. No erosions to suggest an inflammatory arthritis. Atheroscle rotic calcifications at the ulnar artery. IMPRESSION: 1. Mild polyarticular osteoarthritis. Reviewed, dictated and finalized at location A. Y PULLER
--- NOTE | ~2020-10-30 | US_ITS ---
EXAMINATION: US joint non vasc ltd RT DATE: 10/30/2020 15:23 INDICATION: Evaluate for fluid in the right second metacarpophalangeal joint. TECHNIQUE: Multiple grayscale and Doppler ultrasound images of the region of maximal swelling at the right second metacarpophalangeal joint were obtained. COMPARISON: Radiograph dated 10/30/2020 FINDINGS: No joint effusion or significant synovitis at the right second metacarpophalangeal joint. 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 Given the absence of an effusion the planned arthrocentesis was deferred. IMPRESSION: 1. No joint effusion or synovitis at the right second metacarpophalangeal joint. 2. 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 Reviewed, dictated and finalized at location A. ATING MACHINE OPERATOR IMPRESSION: 1. No joint effusion or synovitis at the right second metacarpophalangeal joint . 2. 6 x 3 mm globular region at the proximal aspect of the radial collateral lig ament of the second metacarpophalangeal joint with echogenic and shadowing foci of calcific density when compared with prior radiograph which would be consist ent with crystalline deposition disease such as gout for which patient has a kn own history.
--- NOTE | ~2020-10-30 | XR_ITS ---
EXAMINATION: XR knee RT 3V DATE: 10/30/2020 07:47 INDICATION: Right knee pain TECHNIQUE: Anteroposterior, oblique and crosstable lateral views of the right knee were obtained COMPARISON: None. FINDINGS: Alignment is normal. No fracture. Prominent enthesophytes along the anterior patella particularly at the inferior pole as well as at the anterior tibial tuberosity. Minimal right knee joint effusion at the suprapatellar pouch without layering lipohemarthrosis. Mild prepatellar pretibial soft tissue sw elling. Atherosclerotic calcifications along the femoral and popliteal arteries. IMPRESSION: 1. Minimal right knee joint effusion. No acute osseous abnormality. Reviewed, dictated and finalized at location A. ER COASTWISE YACHT
--- NOTE | ~2020-10-30 | XR_ITS ---
EXAMINATION: XR chest 2V DATE: 11/01/2020 13:57 INDICATION: Shortness of breath. TECHNIQUE: Frontal and lateral views of the chest were obtained. COMPARISON: Chest single view 10/30/2020, chest CT 08/11/2018 FINDINGS: There is chronic mild elevation of left hemidiaphragm. There are interstitial opacities in the mid and lower lung zones. No pleural effusion or pneumothorax. Cardiomegaly is noted. There is mi ld chronic anterior wedging of multiple vertebral bodies. IMPRESSION: 1. Interstitial opacities in the mid and lower lung zones with improvement on the left, consistent wi th mild pulmonary edema versus chronic lung disease. 2. Cardiomegaly. Reviewed, dictated and finalized at location B. NET BUILDER IMPRESSION: 1. Interstitial opacities in the mid and lower lung zones with improvement on t he left, consistent with mild pulmonary edema versus chronic lung disease. 2. Cardiomegaly.
--- NOTE | 2020-10-30 06:10 | ED.EXTPRO ---
HPI - Extremity Problem General Chief complaint: Extremity Problem,Nontraumatic Stated complaint: leg pain/ gout? Time Seen by Provider: 10/30/20 06:10 History of Present Illness HPI Narrative: 65 yo male w/ h/o CHF, COPD, DM, HTN, Gout brought in by EMS for extremity pain. He reports that he has been having pain for several days today his pain is to severe for him to stand. The pain is all over, but worst in the lateral side of the right foot and just below his right knee. He also has pain and swelling in the right index finger and can no longer straighten it fuilly. No fever, chils, nausea, vomting. Related Data Home Medications Medication Instructions Recorded Confirmed Incruse Ellipta 1 inh INHALATION DAILY PRN 05/03/20 10/30/20 allopurinol 100 mg PO BID 05/03/20 10/30/20 atorvastatin 20 mg PO DAILY 05/03/20 10/30/20 furosemide 40 mg PO BID 05/03/20 10/30/20 metformin 1,000 mg PO BID 05/03/20 10/30/20 metoprolol succinate 25 mg PO DAILY 05/03/20 10/30/20 mycophenolate mofetil 1,500 mg PO BID 05/03/20 10/30/20 prednisone 10 mg PO DAILY 05/03/20 10/30/20 zolpidem 10 mg PO HS PRN 05/03/20 10/30/20 gabapentin [Neurontin] 400 mg PO Q8HR 10/30/20 10/30/20 Allergies Allergy/AdvReac Type Severity Reaction Status Date / Time cyclobenzaprine AdvReac Unknown Other Verified 10/30/20 11:36 Review of Systems Review of Systems: All systems reviewed & are unremarkable except as noted in HPI and below Constitutional: Constitutional: Denies chills and Denies fever(s) ENT: Denies dizziness Cardiovascular: Cardiovascular: Denies chest pain Respiratory: Respiratory: Reports dyspnea Gastrointestinal: Gastrointestinal: Denies nausea and Denies vomiting Neurologic: Denies dizziness [facility] Past Medical History Medical History (Updated 11/01/20 @ 11:11 by Zonia Bear PA-C) CAD (coronary artery disease) Non STEMI May 2007 Chronic respiratory failure with hypoxia and hypercapnia Congestive heart failure Mixed grade 1 diastolic and EF around 35%. COPD (chronic obstructive pulmonary disease) COPD (chronic obstructive pulmonary disease) Coronary artery disease DM2 (diabetes mellitus, type 2) Gout History of DVT (deep vein thrombosis) Left leg June 21, 2018. he had a DVTs his left leg and he was on anti coagulation for brief period time and then was taken off. HTN (hypertension) with goal to be determined Hyperlipidemia Hypertension Ischemic cardiomyopathy Obstructive sleep apnea Pilonidal cyst Extracted Surgical History Surgical History H/O cardiac catheterization 2006 H/O elbow surgery On the left H/O laminectomy 2002 History of cardiac cath Family History Family History Sibling Congestive heart failure Mother Heart disease Hypertension Father Heart disease Emphysema of lung Social History Social History (Updated 10/30/20 @ 13:50 by Lakia Raya NP) Social History: The patient is . 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 So is a DNR. His daughter yanet Rodriguez is a durable power ip attorney for healthcare. According to old records he used to drink anywhere from 20-30 beers a week any states he does not do that anymore. He tells me that the other night he took a pain pill and went to the [facility] drinks 6 beers. He states that he may drink a few beers and then not drink again for several months. The patient smoked up to 2 packs of cigarettes a day for greater than 40 years. He stated that he has quit smoking. 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 the patient is on disability. Smoking packs per day: 2 Smoking cigarettes per day: 40.0 Years smoked: 50 Smoking pack-years: 100.00 Smoking status: Former smoker Tobacco type: cigarettes Smoking end date:
[2020-10-30 06:57] LABS: Basophils Absolute Auto 0.1 K/mm3 (0.0-0.1); Eosinophils Absolute Auto 0.1 K/mm3 (0-0.3); Eosinophils Percent Auto 0.7 % (0-4.4); Hematocrit 42.9 % (42.0-52.0); Hemoglobin 13.5 g/dL (14.0-18.0); Immature Granulocyte Absolute 0.38 K/mm3 (0.00-0.031); Immature Granulocyte Percent A 2.9 % (0-0.5); Lymphocytes Absolute Auto 2.01 K/mm3 (0.9-3.2); Lymphocytes Percent Auto 15.1 % (18.3-44.2); Mean Corpuscular HGB Conc 31.5 g/dl (32-36); Mean Corpuscular Hemoglobin 29.6 pg (26-34); Mean Corpuscular Volume 94.1 fl (80-100); Mean Platelet Volume 11.8 fl (7.4-10.4); Monocytes Absolute Auto 1.3 K/mm3 (0.1-0.6); Monocytes Percent Auto 9.8 % (2.6-8.5); Neutrophils Absolute Auto 9.4 K/mm3 (1.3-6.7); Neutrophils Percent Auto 70.5 % (45.5-73.1); Platelet Count Result 172 k/mm3 (150-375); Red Blood Count 4.56 M/mm3 (4.6-6.20); Red Cell Distribution Width 14.8 % (11.5-14.5); White Blood Count 13.3 K/mm3 (4.5-10.0)
[2020-10-30] MEDS: MORPHINE SULFATE (*CRX) 4 MG/ML INJ IV PUSH (06:57)
[2020-10-30 07:05] LABS: Partial Thromboplastin Time 27.2 SECONDS (22.3-36.8)
[2020-10-30 07:17] LABS: Anion Gap 5 mmol/L (8-16); Blood Urea Nitrogen 45 mg/dL (9-20); Calcium 9.3 mg/dL (8.4-10.2); Carbon Dioxide 31 mmol/L (22-30); Chloride 99 mmol/L (98-107); Estimated CRCL calculation 72 ml/min; Estimated Glomerular Filt Rate > 60; Glucose 181 mg/dL (75-110); Potassium 4.9 mmol/L (3.4-5.0); Sodium 135 mmol/L (137-145)
[2020-10-30 07:51] LABS: Uric Acid 7.9 mg/dL (3.5-8.5)
--- NOTE | 2020-10-30 08:55 | ED.EXTPRO ---
HPI - Extremity Problem General Chief complaint: Extremity Problem,Nontraumatic Stated complaint: leg pain/ gout? Time Seen by Provider: 10/30/20 06:10 Source: patient Mode of arrival: ambulatory Limitations: no limitations History of Present Illness HPI Narrative: Patient is a 65-year-old male complaining of right hand pain, redness and swelling accompanied by right knee and right foot pain, redness and swelling x1 week. Patient states he has a history of gout. Patient denies any fever or chills. Patient also states he has noticed increased swelling of his bilateral lower extremities. Patient denies any chest pain but admits to being short of breath worse with exertion but states that that is nothing new for him since he is on oxygen at home. Related Data Home Medications Medication Instructions Recorded Confirmed Incruse Ellipta 1 inh INHALATION DAILY 05/03/20 05/03/20 allopurinol 100 mg PO BID 05/03/20 05/03/20 atorvastatin 20 mg PO DAILY 05/03/20 05/03/20 diclofenac sodium 75 mg PO BID PRN 05/03/20 05/03/20 ferrous sulfate 325 mg PO DAILY 05/03/20 05/03/20 furosemide 40 mg PO BID 05/03/20 05/03/20 metformin 500 mg PO DAILY 05/03/20 05/03/20 metoprolol succinate 25 mg PO DAILY 05/03/20 05/03/20 mycophenolate mofetil 1,500 mg PO BID 05/03/20 05/03/20 prednisone 10 mg PO DAILY 05/03/20 05/03/20 zolpidem 10 mg PO HS PRN 05/03/20 05/03/20 Allergies Allergy/AdvReac Type Severity Reaction Status Date / Time cyclobenzaprine AdvReac Unknown Other Verified 10/13/20 09:18 Review of Systems Review of Systems: All systems reviewed & are unremarkable except as noted in HPI and below Constitutional: Constitutional: Denies body ache(s), Denies chills, Denies excessive sweating, Denies fatigue, Denies fever(s), Denies headache(s), Denies lethargy, Denies malaise, Denies weakness and Denies weight loss Eyes: Eyes: Denies blurry vision, Denies change in vision and Denies loss of vision ENT: Denies dizziness, Denies ear discharge, Denies headache(s), Denies lip swelling, Denies epistaxis, Denies nasal congestion, Denies neck pain, Denies throat swelling and Denies tongue swelling Cardiovascular: Cardiovascular: Denies chest pain, Denies chest pain at rest, Denies chest pain with activity, Denies diaphoresis, Denies rapid heart rate, Denies edema, Denies irregular heart rhythm, Denies lightheadedness and Denies palpitations Respiratory: Respiratory: Denies chest congestion, Denies cough and Denies hemoptysis Gastrointestinal: Gastrointestinal: Denies abdominal pain, Denies melena, Denies hematochezia, Denies diarrhea, Denies nausea, Denies vomiting and Denies hematemesis Musculoskeletal: Musculoskeletal: Denies abnormal gait, Denies deformity, Denies neck pain and Denies numbness Neurologic: Denies Abnormal speech present, Denies abnormal gait, Denies confusion, Denies dizziness, Denies headache(s), Denies focal weakness, Denies loss of vision, Denies numbness, Denies Other visual disturbances, Denies Sensory deficit (Neuro) and Denies weakness Psychiatric: Psychiatric: Denies confusion, Denies depression, Denies auditory hallucinations, Denies homicidal ideation and Denies suicidal ideation Endocrine: Endocrine: Denies cold intolerance, Denies excessive sweating, Denies fatigue, Denies heat intolerance and Denies palpitations Hematologic/Lymphatic: Hematologic/Lymphatic: Denies easy bleeding and Denies easy bruising Allergic/Immunologic: Allergic/Immunologic: Denies lip swelling, Denies throat swelling and Denies tongue swelling PMFSH Past Medical History Medical History CAD (coronary artery disease) Non STEMI May 2007 Chronic respiratory failure with hypoxia and hypercapnia Congestive heart failure Mixed grade 1 diastolic and EF around 35%. COPD (chronic obstructive pulmonary disease) COPD (chronic obstructive pulmonary disease) Coronary artery disease DM2 (diabetes mellitus,
[2020-10-30] MEDS: FUROSEMIDE INJ 40 MG/4 ML VIAL 20 MG IV PUSH (10:08)
[2020-10-30 10:34] LABS: NT Pro B Type Natriuretic Pept 2410 PG/ML (5-100)
--- NOTE | 2020-10-30 11:13 | ADMGEN ---
This patient, Sam Stephen Sr., was admitted to Medical Room 254-01. Patient/family oriented to hospital policies and general routines including ID bracelet, bed and alarms, visiting hours, pain management, procedures, bathroom and other care routines, personal items, smoking policy, room service/diet, and visiting hours. Information on how to activate the Rapid Response Team has been discussed. Patient/Family are encouraged to report perceived risks to care and to ask questions if they do not understand what they are told or what they should do.
--- NOTE | 2020-10-30 13:36 | PM.IMHP ---
H&P: HPI History of Present Illness Date/Time: 10/30/20 13:36 Chief complaint: cellulitis,chf exacerb Narrative: Sam Stephen Sr. is a 65 year old male Who has a history of gout and is on prednisone and allopurinol. The patient has been complaining of multiple areas were his joint pain. The patient had been on a diclofenac at 1 time but was taken off of it due to his kidney failure. The patient stated he has been having pain since then. The patient has chronic venous stasis ulcers which most of them are healed except for the 1 on the left lower extremity. The patient has been seeing [facility] for months. The patient came in today because he was complaining of right knuckle pain that was red and swollen red and swelling to his right knee and right foot is swollen as well. His but swollen for 1 week. The patient does continue to drink alcohol. The patient Has been short of breath with exertion but denies chest pain. He does have a history of COPD and CHF. He does wear oxygen at 5 L-6l per nasal cannula at home. patient was felt to have cellulitis to right hand and right knee was started on Zosyn. Initially it was thought to be gout and looks like it possibly could be gout however his uric is normal. May also consider joint aspiration for more thorough diagnosis. Patient's white counts noted to be 13.3. Hand x-ray was read as mild polyarticular osteoarthritis. Knee x-ray was read as minimal right knee joint effusion no acute osseous abnormality. Chest x-ray was read as increased interstitial pattern in the bilateral mid and lower lung zones most likely congestive heart failure related mild pulmonary edema with differential could be pneumonia. Cardiomegaly. Patient was given IV Lasix, IV morphine and Zosyn in the emergency room. The patient is being admitted into observation status and date of service of 10/30/2020 Review of Systems Review of Systems: All systems reviewed & are unremarkable except as noted in HPI and below Constitutional: Constitutional: Reports as per HPI and Reports no additional constitutional complaints Eyes: Eyes: Reports as per HPI and Reports no additional eye complaints ENT: Reports system reviewed and no additional complaints, except as documented and Reports Normal hearing present Cardiovascular: Cardiovascular: Reports no additional cardiovascular complaints Respiratory: Respiratory: Reports no additional respiratory complaints and Reports no additional respiratory complaints Gastrointestinal: Gastrointestinal: Reports as per HPI and Reports no additional gastrointestinal complaints Musculoskeletal: Musculoskeletal: Reports no additional musculoskeletal complaints Integumentary/Breasts: Skin/Breast: Reports system reviewed and no additional complaints, except as docu and Reports as per HPI Neurologic: Reports system reviewed and no additional complaints, except as documented, Reports as per HPI and Reports Normal hearing present Psychiatric: Psychiatric: Reports no additional psychiatric complaints and Reports as per HPI Endocrine: Endocrine: Reports no additional endocrine complaints Hematologic/Lymphatic: Hematologic/Lymphatic: Reports no additional hematologic/lymphatic complaints Allergic/Immunologic: Allergic/Immunologic: Reports no additional allergic/immunologic complaints [facility] Past Medical History Medical History (Updated 10/30/20 @ 13:49 by Lakia Raya NP) CAD (coronary artery disease) Non STEMI May 2007 Chronic respiratory failure with hypoxia and hypercapnia Congestive heart failure Mixed grade 1 diastolic and EF around 35%. COPD (chronic obstructive pulmonary disease) COPD (chronic obstructive pulmonary disease) Coronary artery disease DM2 (diabetes mellitus, type 2) Gout History of DVT (deep vein thrombosis) Left leg June 21, 2018. he had a DVTs his left leg and he was on anti coagulation for brief period time and then was taken off. HTN (hypertension) with goal
[2020-10-30] MEDS: COLCHICINE 0.6 MG TABLET 1.2 MG PO (14:12)
[2020-10-30 14:13] LABS: Basophils Absolute Auto 0.1 K/mm3 (0.0-0.1); Basophils Percent Auto 1.2 % (0.2-1.2); Eosinophils Absolute Auto 0.1 K/mm3 (0-0.3); Eosinophils Percent Auto 1.1 % (0-4.4); Hematocrit 43.9 % (42.0-52.0); Hemoglobin 13.8 g/dL (14.0-18.0); Immature Granulocyte Absolute 0.23 K/mm3 (0.00-0.031); Immature Granulocyte Percent A 2.1 % (0-0.5); Immature Platelet Fraction Pct 5.3 % (0.9-11.2); Lymphocytes Absolute Auto 1.97 K/mm3 (0.9-3.2); Lymphocytes Percent Auto 17.7 % (18.3-44.2); Mean Corpuscular HGB Conc 31.4 g/dl (32-36); Mean Corpuscular Hemoglobin 30.1 pg (26-34); Mean Corpuscular Volume 95.9 fl (80-100); Mean Platelet Volume 11.1 fl (7.4-10.4); Monocytes Absolute Auto 1.2 K/mm3 (0.1-0.6); Monocytes Percent Auto 10.3 % (2.6-8.5); Neutrophils Absolute Auto 7.5 K/mm3 (1.3-6.7); Neutrophils Percent Auto 67.6 % (45.5-73.1); Platelet Count Result 155 k/mm3 (150-375); Red Blood Count 4.58 M/mm3 (4.6-6.20); Red Cell Distribution Width 14.9 % (11.5-14.5); White Blood Count 11.1 K/mm3 (4.5-10.0)
[2020-10-30 14:28] LABS: Anion Gap 2 mmol/L (8-16); Blood Urea Nitrogen 41 mg/dL (9-20); Carbon Dioxide 37 mmol/L (22-30); Chloride 97 mmol/L (98-107); Estimated CRCL calculation 66 ml/min; Estimated Glomerular Filt Rate > 60; Glucose 163 mg/dL (75-110); Potassium 4.7 mmol/L (3.4-5.0); Sodium 136 mmol/L (137-145)
--- NOTE | 2020-10-30 14:30 | PM.CNOR ---
Assessment and Plan Additional Plan 65-year-old male with a swollen right index MP joint. Differential diagnosis would include infection as well as gout flare. I did review the x-rays of his hand which show no arthritic changes of the joint to the. Will have radiology do an aspiration of that 2nd MTP joint send the fluid off for crystals as well as cultures. If they have enough that we will have them do a cell count with diff as well. With regard to his does have some patellofemoral changes seen on the x-rays. He only has a trace effusion in the knee, so I do not think this represents a gout flare. More likely if his exacerbation of the arthritis in his knee. Certainly will keep a close eye on this. I did discuss all this with today. He feels that the patient may also benefit from a Medrol Dosepak. They will continue with his antibiotics at this point to rule out infection. This is a gout flare the colchicine as well as a Medrol Dosepak should work fairly quickly. We will continue to see the patient while he is here at the hospital. History of Present Illness HPI Consult date: 10/30/20 Chief complaint: cellulitis,chf exacerb Narrative: A 65-year-old male who presents today for pain in the right index MP joint as well as the right knee. Both areas following approximately 5 days ago. He has had no traumas or injuries to the knee. Had no falls on the knee. Most of his pain in the knee is directly over the patella. His right index MP joint started being painful or 5 days ago. This came on spontaneous. He was not using the hand aggressively or hitting anything with. He started noticing a lot of pain and swelling the MP joint that has progressively worsened as far as the pain. He has a history of gout in the past. One month ago he was this hospital and his uric acid point was 9.8. That time he is pain in the left knee. There was an aspiration done of the left knee which showed no evidence of infection. He does take allopurinol daily. Patient initial white count was 13.3, today was down to 11.1. He has been on antibiotics since being admitted. They have also started him on colchicine as well. [facility] Past Medical History Medical History (Updated 10/30/20 @ 13:49 by Lakia Raya NP) CAD (coronary artery disease) Non STEMI May 2007 Chronic respiratory failure with hypoxia and hypercapnia Congestive heart failure Mixed grade 1 diastolic and EF around 35%. COPD (chronic obstructive pulmonary disease) COPD (chronic obstructive pulmonary disease) Coronary artery disease DM2 (diabetes mellitus, type 2) Gout History of DVT (deep vein thrombosis) Left leg June 21, 2018. he had a DVTs his left leg and he was on anti coagulation for brief period time and then was taken off. HTN (hypertension) with goal to be determined Hyperlipidemia Hypertension Ischemic cardiomyopathy Obstructive sleep apnea Pilonidal cyst Extracted Surgical History Surgical History H/O cardiac catheterization 2006 H/O elbow surgery On the left H/O laminectomy 2002 History of cardiac cath Family History Family History Sibling Congestive heart failure Mother Heart disease Hypertension Father Heart disease Emphysema of lung Social History Social History (Updated 10/30/20 @ 13:50 by Lakia Raya NP) Social History: The patient is . 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 So is a DNR. His daughter yanet Rodriguez is a durable power document review attorney for healthcare. According to old records he used to drink anywhere from 20-30 beers a week any states he does not do that anymore. He tells me that the other night he took a pain pill and went to the [facility] drinks 6 beers. He states that he may drink a few beers and then not drink again for several months. The patient smoked up to 2 packs of cig
--- NOTE | 2020-10-30 14:50 | PC.NURSE ---
Patient to ultrasound per bed.
[2020-10-30 15:14] LABS: CRP 8.2 mg/dL (<1.0)
[2020-10-30 15:22] LABS: Hemoglobin A1C 7.7 % (<5.7)
--- NOTE | 2020-10-30 15:26 | PC.NURSE ---
Patient return from ultrasound.
[2020-10-30] MEDS: methylPREDNISolone (MEDROL) DOSEPACK 4 MG TABLETS PO ×3 (15:38→21:46)
[2020-10-30] MEDS: allopurinoL 100 MG TABLET PO (16:27)
[2020-10-30] MEDS: mycophenolate mofetiL 250 MG CAPSULE 1500 MG PO (16:27)
[2020-10-30] MEDS: GABAPENTIN 400 MG CAPSULE PO ×2 (16:27→21:49)
[2020-10-30] MEDS: FUROSEMIDE INJ 40 MG/4 ML VIAL IV PUSH (16:27)
--- NOTE | 2020-10-30 17:30 | PC.NURSE ---
Addendum entered by Tasha Dash RN 10/30/20 17:37: Andrade notified and verbalized understanding. Cancelled fluid culture, crystals, etc. ordered for aspiration. Original Note: Aspiration of right hand ordered by NASIMA Perales. Per radiology, they were unable to aspirate any fluid due to ultrasound not showing enough fluid for aspiration. Called and left voicemail with Andrade to update him.
[2020-10-30 18:13] LABS: Glucose Point of Care 245 (65-105)
[2020-10-30] MEDS: HYDROcodone/acetaminophen (*CRX) 5-325 MG TABLET 1 TAB PO (18:14)
[2020-10-30] MEDS: INSULIN ASPART (*BKC) 100 UNITS/ML SUB-Q (18:14)
[2020-10-30] MEDS: INSULIN GLARGINE (*BKC) 100 UNITS/ML 15 UNITS SUB-Q (21:44)
[2020-10-30 22:01] LABS: Glucose Point of Care 245 (65-105)
[2020-10-30] MEDS: ZOLPIDEM TARTRATE (*CRX) 5 MG TABLET 10 MG PO (22:28)
[2020-10-31 05:31] LABS: Basophils Absolute Auto 0.1 K/mm3 (0.0-0.1); Basophils Percent Auto 0.5 % (0.2-1.2); Hematocrit 43.4 % (42.0-52.0); Hemoglobin 13.6 g/dL (14.0-18.0); Immature Granulocyte Absolute 0.26 K/mm3 (0.00-0.031); Lymphocytes Absolute Auto 0.74 K/mm3 (0.9-3.2); Lymphocytes Percent Auto 5.7 % (18.3-44.2); Mean Corpuscular HGB Conc 31.3 g/dl (32-36); Mean Corpuscular Hemoglobin 29.6 pg (26-34); Mean Corpuscular Volume 94.6 fl (80-100); Mean Platelet Volume 11.5 fl (7.4-10.4); Monocytes Absolute Auto 0.6 K/mm3 (0.1-0.6); Monocytes Percent Auto 4.4 % (2.6-8.5); Neutrophils Absolute Auto 11.4 K/mm3 (1.3-6.7); Neutrophils Percent Auto 87.4 % (45.5-73.1); Platelet Count Result 148 k/mm3 (150-375); Red Blood Count 4.59 M/mm3 (4.6-6.20); Red Cell Distribution Width 14.5 % (11.5-14.5)
[2020-10-31 05:51] LABS: Alanine Aminotransferase 17 U/L (4-50); Albumin Level 3.7 g/dL (3.5-5.1); Alkaline Phosphatase 64 U/L (38-126); Anion Gap 3 mmol/L (8-16); Aspartate Amino Transferase 27 U/L (17-59); Bilirubin,Total 0.8 mg/dL (0.2-1.3); Blood Urea Nitrogen 36 mg/dL (9-20); Calcium 8.6 mg/dL (8.4-10.2); Carbon Dioxide 35 mmol/L (22-30); Chloride 96 mmol/L (98-107); Estimated CRCL calculation 78 ml/min; Estimated Glomerular Filt Rate > 60; Glucose 297 mg/dL (75-110); Magnesium 2.4 mg/dL (1.6-2.3); Sodium 134 mmol/L (137-145)
[2020-10-31 06:00] VITALS: BP 131/76; PULSE 89; RESP 21; TEMP 36; O2SAT 100
[2020-10-31] MEDS: methylPREDNISolone (MEDROL) DOSEPACK 4 MG TABLETS PO ×4 (06:12→20:27)
[2020-10-31] MEDS: GABAPENTIN 400 MG CAPSULE PO ×3 (06:13→22:23)
[2020-10-31 08:12] LABS: Glucose Point of Care 205 (65-105)
[2020-10-31] MEDS: lisinopriL 5 MG TABLET PO (08:43)
[2020-10-31 08:46] VITALS: PULSE 90
[2020-10-31] MEDS: ATORVASTATIN 20 MG TABLET PO (08:46)
[2020-10-31] MEDS: METOPROLOL SUCCINATE EXT REL 25 MG TABCR PO (08:46)
[2020-10-31] MEDS: predniSONE 10 MG TABLET PO (08:46)
[2020-10-31] MEDS: allopurinoL 100 MG TABLET PO ×2 (08:46→17:29)
[2020-10-31] MEDS: mycophenolate mofetiL 250 MG CAPSULE 1500 MG PO ×2 (08:46→17:30)
[2020-10-31] MEDS: FUROSEMIDE INJ 40 MG/4 ML VIAL IV PUSH ×2 (08:46→17:29)
[2020-10-31] MEDS: HYDROcodone/acetaminophen (*CRX) 5-325 MG TABLET 1 TAB PO ×2 (08:52→20:38)
[2020-10-31] MEDS: SILVERGEL (ELTA) 45 ML 1 APPLIC TOPICAL (09:03)
--- NOTE | 2020-10-31 09:30 | PM.PNORT ---
Progress Note: A&P Additional Plan no fluid found yesterday in 2nd MP joint which would point away from infection in joint, still poss. may have a localixed soft tissue infection around joint, would recommend cont abx. finger and MP joint look better today-no redness,much less sensitive to palp Knee continues to have no effusion,redness,warmth. pt states knee is feeling better as well. Will have OT work on ROM of fingers to improve stiffness. Pt is on medrol dose pack at this time. Both the hand and knee are improving- cont same treatment at this point Subjective Subjective Date/Time Seen: 10/31/20 09:30 Objective Data Vital Signs Vital Signs: Vital Signs - 24 hr 10/30/20 10:38 10/30/20 11:13 10/30/20 12:29 Temperature 36.6 C Pulse Rate 100 102 H Respiratory Rate 22 H 23 H Blood Pressure 124/70 146/65 H Pulse Oximetry 95 97 98 10/30/20 14:00 10/30/20 20:00 10/30/20 22:00 Temperature 36.6 C 36.2 C L Pulse Rate 91 94 Respiratory Rate 19 18 Blood Pressure 109/68 110/76 Pulse Oximetry 95 95 95 10/31/20 06:00 10/31/20 08:46 Temperature 36.0 C L Pulse Rate 89 90 Respiratory Rate 21 H Blood Pressure 131/76 Pulse Oximetry 100 Intake/Output Intake/Output: Intake & Output 10/28/20 10/29/20 10/30/20 10/31/20 23:59 23:59 23:59 23:59 Intake Total 1490 1650 Output Total 1775 1300 Balance -285 350 Meds/Results Medications: Active Medications Generic Name Dose Route Start Last Admin Trade Name Freq PRN Reason Stop Dose Admin Hydrocodone Bitart/Acetaminophen 1 tab 10/30/20 13:28 10/31/20 08:52 Hydrocodone/Acetaminophen (*Crx) 5-325 Mg Tablet PO 1 tab Q4H PRN Administration Pain Rated 4-6 Allopurinol 100 mg 10/30/20 17:00 10/31/20 08:46 Allopurinol 100 Mg Tablet PO 100 mg BID JANNET Administration Atorvastatin Calcium 20 mg 10/31/20 09:00 10/31/20 08:46 Atorvastatin 20 Mg Tablet PO 20 mg DAILY JANNET Administration Dextrose 12.5 gm 10/30/20 13:29 Dextrose 50% 25 Gm/50 Ml Syringe IV PUSH PRN PRN Hypoglycemia Protocol Furosemide 40 mg 10/30/20 17:00 10/31/20 08:46 Furosemide Inj 40 Mg/4 Ml Vial IV PUSH 40 mg BID JANNET Administration Gabapentin 400 mg 10/30/20 14:00 10/31/20 06:13 Gabapentin 400 Mg Capsule PO 400 mg Q8HR JANNET Administration Glucagon 1 mg 10/30/20 13:29 Glucagon For Inj 1 Mg Vial IM PRN PRN Hypoglycemia Protocol Glucose 15 gm 10/30/20 13:29 Glucose Oral Gel 15 Gm Of Glucse In 37.5 Gm Tube PO PRN PRN Hypoglycemia Protocol Dextrose 1,000 mls @ 100 mls/hr 10/30/20 13:29 Dextrose 5% 1,000 Ml IVPB PRN PRN Hypoglycemia Protocol Imipenem/Cilastatin Sodium 500 mg in 100 mls @ 300 mls/hr 10/30/20 14:00 10/31/20 06:27 Primaxin 500 Mg/D5w 100 Ml IVPB Infused Q6HR JANNET Infusion Vancomycin HCl 1,750 mg in 500 mls @ 250 mls/hr 10/30/20 15:00 10/31/20 05:05 Vancomycin 1,750 Mg/D5w 500 Ml IVPB Infused Q12H JANNET Infusion Insulin Aspart 2 - 5 units 10/30/20 17:00 10/31/20 08:45 Insulin Aspart (*Bkc) 100 Units/Ml SUB-Q Not Given TIDWM [facility] Protocol Insulin Glargine 15 units 10/30/20 21:00 10/30/20 21:44 Insulin Glargine (*Bkc) 100 Units/Ml SUB-Q 15 units HS JANNET Administration Lisinopril 5 mg 10/31/20 09:00 10/31/20 08:43 Lisinopril 5 Mg Tablet PO 5 mg DAILY JANNET Administration Methylprednisolone 4 mg 10/30/20 06:30 10/31/20 06:12 Methylprednisolone (Medrol) Dosepack 4 Mg Tablets PO 11/04/20 07:29 4 mg 0630,1200,1700 JANNET Administration Taper Metoprolol Succinate 25 mg 10/31/20 09:00 10/31/20 08:46 Metoprolol Succinate Ext Rel 25 Mg Tabcr PO 25 mg DAILY JANNET Administration Mycophenolate Mofetil 1,500 mg 10/30/20 17:00 10/31/20 08:46 Mycophenolate Mofetil 250 Mg Capsule PO 1,500 mg BID JANNET Administration Prednisone 10 mg 10/31/20 09:00 10/31/20 08:46 P
[2020-10-31 09:46] LABS: Glucose Point of Care 199 (65-105)
[2020-10-31 12:41] LABS: Glucose Point of Care 191 (65-105)
[2020-10-31 14:00] VITALS: BP 108/71; PULSE 85; RESP 20; TEMP 36.2; O2SAT 95
--- NOTE | 2020-10-31 14:22 | PM.IMPN ---
Progress Note: A&P Assessment and Plan (1) Cellulitis: Qualifiers: Laterality: right Site of cellulitis: extremity Site of cellulitis of extremity: upper extremity Qualified Code(s): L03.113 - Cellulitis of right upper limb Code(s): L03.90 - Cellulitis, unspecified Status: Acute Assessment and Plan: Cellulitis versus gout -ultrasound suspicious for gout changes but unable to elicit any fluid -uric acid is normal although this can be normal in a gout flare -will continue antibiotics at this time since he is immunosuppressed with an elevated white blood cell count (2) Venous stasis ulcer: Code(s): I83.009 - Varicose veins of unspecified lower extremity with ulcer of unspecified site; L97.909 - Non-pressure chronic ulcer of unspecified part of unspecified lower leg with unspecified severity Status: Chronic Assessment and Plan: -sees wound care outpatient -will continue with current recommendations (3) Gout: Code(s): M10.9 - Gout, unspecified Status: Chronic Assessment and Plan: Continue with allopurinol and prednisone (4) Acute exacerbation of CHF (congestive heart failure): Qualifiers: Heart failure type: unspecified Qualified Code(s): I50.9 - Heart failure, unspecified Code(s): I50.9 - Heart failure, unspecified Status: Acute Assessment and Plan: Chest x-ray shows likely CHF with pulmonary edema - continue with IV Lasix (5) DM2 (diabetes mellitus, type 2): Code(s): E11.9 - Type 2 diabetes mellitus without complications Status: Chronic Assessment and Plan: Last glucose 191 -continue Accu-Cheks AC and HS. -continue Lantus -A1c improved now 7.7 -likely more elevated due to steroids (6) COPD (chronic obstructive pulmonary disease): Code(s): J44.9 - Chronic obstructive pulmonary disease, unspecified Status: Chronic Assessment and Plan: No exacerbation noted at this time - Continue with inhalers. - The patient is on oxygen at 5 to his 6 L per nasal cannula chronically (7) Chronic respiratory failure with hypoxia and hypercapnia: Code(s): J96.11 - Chronic respiratory failure with hypoxia; J96.12 - Chronic respiratory failure with hypercapnia Status: Chronic Assessment and Plan: Patient is chronically on oxygen at 5-6 L per nasal cannula. (8) HTN (hypertension) with goal to be determined: Code(s): I10 - Essential (primary) hypertension Status: Chronic Assessment and Plan: Last blood pressure 131/76 - Continue with Lasix, lisinopril and metoprolol (9) Obstructive sleep apnea: Code(s): G47.33 - Obstructive sleep apnea (adult) (pediatric) Status: Chronic Assessment and Plan: Continue with CPAP Time Spent With Patient Time with patient: 25 - 35 minutes Subjective Date/time seen: 10/31/20 14:22 Interval history: Pt is a 65-year-old male here for cellulitis/gout. Patient was seen today and states he still having pain in his right finger and right knee but the pain is less compared to when he came in. Pt denies nausea, vomiting, fevers, chills, cough, constipation, diarrhea, chest pain, sob, or abdominal pain. He has venous stasis wound on the left constantino that he sees wound care for. He also has a rehabilitation services counselor in which she is on immunosuppressant therapy for something in his lungs and sees a rehabilitation services counselor. Review of Systems Review of Systems: All systems reviewed & are unremarkable except as noted in HPI and below Exam Narrative: Exam Narrative: General: Overweight patient resting comfortably in the chair in no acute distress HEENT: normocephalic, oxygen applied Neck: supple Neuro: Alert and oriented x4 CV:RRR Resp: Decreased breath sounds but no wheezing or rhonchi Abd: Soft, partially distended. No pain to palpation. Positive bowel sounds Extremities: P
[2020-10-31] MEDS: INSULIN ASPART (*BKC) 100 UNITS/ML SUB-Q (18:46)
[2020-10-31 19:01] LABS: Glucose Point of Care 287 (65-105)
[2020-10-31 20:00] VITALS: O2SAT 95
[2020-10-31] MEDS: INSULIN GLARGINE (*BKC) 100 UNITS/ML 15 UNITS SUB-Q (20:26)
[2020-10-31 20:47] LABS: Glucose Point of Care 373 (65-105)
[2020-10-31 21:27] VITALS: PULSE 84; O2SAT 90
[2020-10-31 22:00] VITALS: BP 100/72; PULSE 84; RESP 16; TEMP 36.3; O2SAT 96
[2020-10-31] MEDS: ZOLPIDEM TARTRATE (*CRX) 5 MG TABLET 10 MG PO (22:23)
[2020-11-01] VITALS (7 sets, daily range): BP systolic 108–117; BP diastolic 73–85; PULSE 76–81; RESP 17–19; TEMP 36.1–36.8; O2SAT 92–97
[2020-11-01 02:09] LABS: Hematocrit 42.8 % (42.0-52.0); Hemoglobin 13.7 g/dL (14.0-18.0); Mean Corpuscular Hemoglobin 30.1 pg (26-34); Mean Corpuscular Volume 94.1 fl (80-100); Mean Platelet Volume 11.5 fl (7.4-10.4); Platelet Count Result 168 k/mm3 (150-375); Red Blood Count 4.55 M/mm3 (4.6-6.20); Red Cell Distribution Width 14.5 % (11.5-14.5); White Blood Count 16.1 K/mm3 (4.5-10.0)
[2020-11-01 02:30] LABS: Anion Gap 4 mmol/L (8-16); Blood Urea Nitrogen 52 mg/dL (9-20); Calcium 8.4 mg/dL (8.4-10.2); Carbon Dioxide 36 mmol/L (22-30); Chloride 94 mmol/L (98-107); Estimated CRCL calculation 66 ml/min; Estimated Glomerular Filt Rate > 60; Glucose 270 mg/dL (75-110); Potassium 5.3 mmol/L (3.4-5.0); Sodium 134 mmol/L (137-145)
[2020-11-01 02:54] LABS: CRP 12.6 mg/dL (<1.0)
[2020-11-01 03:11] LABS: Vancomycin Trough 17.9 ug/mL (10.0-20.0)
[2020-11-01] MEDS: methylPREDNISolone (MEDROL) DOSEPACK 4 MG TABLETS PO ×4 (05:47→21:33)
[2020-11-01] MEDS: GABAPENTIN 400 MG CAPSULE PO ×3 (05:47→21:33)
[2020-11-01 08:18] LABS: Glucose Point of Care 273 (65-105)
[2020-11-01] MEDS: FUROSEMIDE INJ 40 MG/4 ML VIAL IV PUSH ×2 (08:18→17:22)
[2020-11-01] MEDS: lisinopriL 5 MG TABLET PO (08:21)
[2020-11-01] MEDS: mycophenolate mofetiL 250 MG CAPSULE 1500 MG PO ×2 (08:21→17:23)
[2020-11-01] MEDS: SILVERGEL (ELTA) 45 ML 1 APPLIC TOPICAL (08:21)
[2020-11-01] MEDS: METOPROLOL SUCCINATE EXT REL 25 MG TABCR PO (08:22)
[2020-11-01] MEDS: INSULIN ASPART (*BKC) 100 UNITS/ML SUB-Q ×3 (08:22→17:35)
[2020-11-01] MEDS: predniSONE 10 MG TABLET PO (08:22)
[2020-11-01] MEDS: ATORVASTATIN 20 MG TABLET PO (08:22)
[2020-11-01] MEDS: allopurinoL 100 MG TABLET PO ×2 (08:22→17:22)
[2020-11-01] MEDS: SODIUM POLYSTYRENE SULFONONATE 15 GM/60 ML BTL PO (09:24)
--- NOTE | 2020-11-01 10:49 | PM.IMPN ---
Progress Note: A&P Assessment and Plan (1) Cellulitis: Qualifiers: Laterality: right Site of cellulitis: extremity Site of cellulitis of extremity: upper extremity Qualified Code(s): L03.113 - Cellulitis of right upper limb Code(s): L03.90 - Cellulitis, unspecified Status: Acute Assessment and Plan: Cellulitis versus gout--favor gout -ultrasound suspicious for gout changes but unable to elicit any fluid -uric acid is normal although this can be normal in a gout flare -will continue antibiotics at this time since he is immunosuppressed with an elevated white blood cell count on admission. I do not suspect the elevated WBC today is indicative of infection. Suspect due to steroids since it was initially improving. No blood cultures needed -Will continue cellcept, abx, and medrol dosepak. (2) Venous stasis ulcer: Code(s): I83.009 - Varicose veins of unspecified lower extremity with ulcer of unspecified site; L97.909 - Non-pressure chronic ulcer of unspecified part of unspecified lower leg with unspecified severity Status: Chronic Assessment and Plan: -sees wound care outpatient -will continue with current recommendations (3) Gout: Code(s): M10.9 - Gout, unspecified Status: Chronic Assessment and Plan: Continue with allopurinol and medrol dospak (4) Acute exacerbation of CHF (congestive heart failure): Qualifiers: Heart failure type: unspecified Qualified Code(s): I50.9 - Heart failure, unspecified Code(s): I50.9 - Heart failure, unspecified Status: Acute Assessment and Plan: Chest x-ray shows likely CHF with pulmonary edema - continue with IV Lasix (5) DM2 (diabetes mellitus, type 2): Code(s): E11.9 - Type 2 diabetes mellitus without complications Status: Chronic Assessment and Plan: Last glucose 273 -continue Accu-Cheks AC and HS. -continue Lantus -A1c improved now 7.7 -likely more elevated due to steroids (6) COPD (chronic obstructive pulmonary disease): Code(s): J44.9 - Chronic obstructive pulmonary disease, unspecified Status: Chronic Assessment and Plan: No exacerbation noted at this time - Continue with inhalers. - The patient is on oxygen at 5 to his 6 L per nasal cannula chronically (7) Chronic respiratory failure with hypoxia and hypercapnia: Code(s): J96.11 - Chronic respiratory failure with hypoxia; J96.12 - Chronic respiratory failure with hypercapnia Status: Chronic Assessment and Plan: Patient is chronically on oxygen at 5-6 L per nasal cannula. (8) HTN (hypertension) with goal to be determined: Code(s): I10 - Essential (primary) hypertension Status: Chronic Assessment and Plan: Last blood pressure 108/85 - Continue with Lasix, lisinopril and metoprolol (9) Obstructive sleep apnea: Code(s): G47.33 - Obstructive sleep apnea (adult) (pediatric) Status: Chronic Assessment and Plan: Continue with CPAP (10) Hyperkalemia: Code(s): E87.5 - Hyperkalemia Status: Acute Assessment and Plan: Mild. Will initiate low K diet and stop lisonopril. -Give one dose of Kayexalate Subjective Date/time seen: 11/01/20 10:49 Interval history: Pt is a 65-year-old male here for cellulitis/gout. Patient was seen today and states he is doing better compared to yesterday. he has more range of movement in the hand and knee but still not full ROM and still having some pain. He states he lives at home and is worried about being home alone. I spoked with Rocio in OT who states he would benefit from an additional day with their therapy. Pt denies nausea, vomiting, fevers, chills, cough, constipation, diarrhea, chest pain, sob, or abdominal pain. He has venous stasis wound on the left constantino that he sees wound care for. 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
--- NOTE | 2020-11-01 11:33 | PM.PNORT ---
Progress Note: A&P Additional Plan Pts right index finger and MP joint doing much better, min pain to palp. min swelling to MP and finger-finger is stiff mostly likely from swelling and not using,pt encouraged to work on ROM, demonstrated PROM for him, did order OT for the fingers, knee is still asymtomatic -pt has been walking in halls without pain, CRP is up to 12.6 today and WBC count is up to 16, may need to look for other source for these finding Subjective Subjective Date/Time Seen: 11/01/20 11:33 Objective Data Vital Signs Vital Signs: Vital Signs - 24 hr 10/31/20 14:00 10/31/20 20:00 10/31/20 21:27 Temperature 36.2 C L Pulse Rate 85 84 Respiratory Rate 20 Blood Pressure 108/71 Pulse Oximetry 95 95 90 10/31/20 22:00 11/01/20 03:32 11/01/20 05:53 Temperature 36.3 C L 36.8 C Pulse Rate 84 80 76 Respiratory Rate 16 19 18 Blood Pressure 100/72 108/85 Pulse Oximetry 96 93 94 11/01/20 08:22 11/01/20 10:10 Temperature Pulse Rate 76 Respiratory Rate 18 Blood Pressure Pulse Oximetry 94 Intake/Output Intake/Output: Intake & Output 10/29/20 10/30/20 10/31/20 11/01/20 23:59 23:59 23:59 23:59 Intake Total 1490 3920 1340 Output Total 1775 2550 350 Balance -285 1370 990 Meds/Results Medications: Active Medications Generic Name Dose Route Start Last Admin Trade Name Freq PRN Reason Stop Dose Admin Hydrocodone Bitart/Acetaminophen 1 tab 10/30/20 13:28 10/31/20 20:38 Hydrocodone/Acetaminophen (*Crx) 5-325 Mg Tablet PO 1 tab Q4H PRN Administration Pain Rated 4-6 Allopurinol 100 mg 10/30/20 17:00 11/01/20 08:22 Allopurinol 100 Mg Tablet PO 100 mg BID JANNET Administration Atorvastatin Calcium 20 mg 10/31/20 09:00 11/01/20 08:22 Atorvastatin 20 Mg Tablet PO 20 mg DAILY JANNET Administration Dextrose 12.5 gm 10/31/20 14:34 Dextrose 50% 25 Gm/50 Ml Syringe IV PUSH PRN PRN Hypoglycemia Protocol Furosemide 40 mg 10/30/20 17:00 11/01/20 08:18 Furosemide Inj 40 Mg/4 Ml Vial IV PUSH 40 mg BID JANNET Administration Gabapentin 400 mg 10/30/20 14:00 11/01/20 05:47 Gabapentin 400 Mg Capsule PO 400 mg Q8HR JANNET Administration Glucagon 1 mg 10/31/20 14:34 Glucagon For Inj 1 Mg Vial IM PRN PRN Hypoglycemia Protocol Glucose 15 gm 10/31/20 14:34 Glucose Oral Gel 15 Gm Of Glucse In 37.5 Gm Tube PO PRN PRN Hypoglycemia Protocol Imipenem/Cilastatin Sodium 500 mg in 100 mls @ 300 mls/hr 10/30/20 14:00 11/01/20 06:06 Primaxin 500 Mg/D5w 100 Ml IVPB Infused Q6HR JANNET Infusion Vancomycin HCl 1,750 mg in 500 mls @ 250 mls/hr 10/30/20 15:00 11/01/20 05:21 Vancomycin 1,750 Mg/D5w 500 Ml IVPB Infused Q12H JANNET Infusion Dextrose 1,000 mls @ 100 mls/hr 10/31/20 14:34 Dextrose 5% 1,000 Ml IVPB PRN PRN Hypoglycemia Protocol Insulin Aspart 3 - 6 units 10/31/20 17:00 11/01/20 08:22 Insulin Aspart (*Bkc) 100 Units/Ml SUB-Q 4 units TIDWM JANNET Administration Protocol Insulin Glargine 15 units 10/30/20 21:00 10/31/20 20:26 Insulin Glargine (*Bkc) 100 Units/Ml SUB-Q 15 units HS JANNET Administration Lisinopril 5 mg 10/31/20 09:00 11/01/20 08:21 Lisinopril 5 Mg Tablet PO 5 mg DAILY JANNET Administration Methylprednisolone 4 mg 10/30/20 06:30 11/01/20 05:47 Methylprednisolone (Medrol) Dosepack 4 Mg Tablets PO 11/04/20 07:29 4 mg 0630,1200,1700,2100 JANNET Administration Taper Metoprolol Succinate 25 mg 10/31/20 09:00 11/01/20 08:22 Metoprolol Succinate Ext Rel 25 Mg Tabcr PO 25 mg DAILY JANNET Administration Mycophenolate Mofetil 1,500 mg 10/30/20 17:00 11/01/20 08:21 Mycophenolate Mofetil 250 Mg Capsule PO 1,500 mg BID JANNET Administration Prednisone 10 mg 10/31/20 09:00 12 08:22 Prednisone 10 Mg Tablet PO 10 mg DAILY JANNET Administration Silver Nitrate 1 applic 10/31/20 09:00
[2020-11-01 11:36] LABS: Glucose Point of Care 240 (65-105)
[2020-11-01] MEDS: HYDROcodone/acetaminophen (*CRX) 5-325 MG TABLET 1 TAB PO (11:53)
[2020-11-01 16:41] LABS: Add Urine Microscopic? YES; Appearance Urine Clear (Clear); Bilirubin Urine Negative (Negative); Blood Urine Negative (Negative); Color Urine Yellow (Yellow); Glucose Urine UA 1+ mg/dL (Negative); Hyaline Casts Urine 30-49 /lpf; Ketones Urine Trace mg/dL (Negative); Leukocyte Esterase Ur Negative LEU/UL (Negative); Mucus Urine Rare /lpf; Nitrate Urine Negative (Negative); Protein Urine Negative (Negative); RBC Urine 0-2 /hpf (0-2); Specific Grav Ur 1.017 (1.001-1.035); WBC Urine 0-3 /hpf
[2020-11-01 17:34] LABS: Glucose Point of Care 304 (65-105)
[2020-11-01] MEDS: INSULIN GLARGINE (*BKC) 100 UNITS/ML 15 UNITS SUB-Q (21:38)
[2020-11-01] MEDS: ZOLPIDEM TARTRATE (*CRX) 5 MG TABLET 10 MG PO (22:48)
[2020-11-01 23:05] LABS: Glucose Point of Care 275 (65-105)
[2020-11-02 05:44] LABS: Hematocrit 43.1 % (42.0-52.0); Hemoglobin 13.7 g/dL (14.0-18.0); Mean Corpuscular HGB Conc 31.8 g/dl (32-36); Mean Corpuscular Hemoglobin 29.6 pg (26-34); Mean Corpuscular Volume 93.1 fl (80-100); Platelet Count Result 194 k/mm3 (150-375); Red Blood Count 4.63 M/mm3 (4.6-6.20); Red Cell Distribution Width 14.2 % (11.5-14.5); White Blood Count 15.2 K/mm3 (4.5-10.0)
[2020-11-02 05:49] LABS: Anion Gap 3 mmol/L (8-16); Blood Urea Nitrogen 57 mg/dL (9-20); Calcium 8.1 mg/dL (8.4-10.2); Carbon Dioxide 36 mmol/L (22-30); Chloride 93 mmol/L (98-107); Estimated CRCL calculation 78 ml/min; Estimated Glomerular Filt Rate > 60; Glucose 311 mg/dL (75-110); Potassium 4.7 mmol/L (3.4-5.0); Sodium 132 mmol/L (137-145)
[2020-11-02 06:00] VITALS: BP 117/79; PULSE 78; RESP 18; TEMP 36.4; O2SAT 96
[2020-11-02] MEDS: GABAPENTIN 400 MG CAPSULE PO ×2 (06:28→15:01)
[2020-11-02] MEDS: methylPREDNISolone (MEDROL) DOSEPACK 4 MG TABLETS PO ×2 (06:28→12:30)
[2020-11-02] MEDS: INSULIN ASPART (*BKC) 100 UNITS/ML SUB-Q ×2 (07:32→12:35)
[2020-11-02 07:39] LABS: Glucose Point of Care 259 (65-105)
[2020-11-02 08:53] VITALS: PULSE 87
[2020-11-02] MEDS: METOPROLOL SUCCINATE EXT REL 25 MG TABCR PO (08:53)
[2020-11-02] MEDS: mycophenolate mofetiL 250 MG CAPSULE 1500 MG PO (08:54)
[2020-11-02] MEDS: ATORVASTATIN 20 MG TABLET PO (08:54)
[2020-11-02] MEDS: predniSONE 10 MG TABLET PO (08:54)
[2020-11-02] MEDS: SILVERGEL (ELTA) 45 ML 1 APPLIC TOPICAL (08:54)
[2020-11-02] MEDS: allopurinoL 100 MG TABLET PO (08:54)
[2020-11-02] MEDS: FUROSEMIDE 40 MG TABLET PO (09:20)
[2020-11-02 12:34] LABS: Glucose Point of Care 224 (65-105)
[2020-11-02 14:00] VITALS: BP 120/76; PULSE 76; RESP 18; TEMP 35.9; O2SAT 94
[2020-11-02 15:28] LABS: Vancomycin Trough 24.5 ug/mL (10.0-20.0)
--- NOTE | 2020-11-03 07:48 | PM.DS ---
DS: Admitting Diagnosis Admitting Diagnosis Admitting Diagnosis: cellulitis,chf exacerb DS: Discharge Diagnosis Discharge Diagnosis (1) Gout: Code(s): M10.9 - Gout, unspecified Status: Chronic Assessment and Plan: -suspect gout flare for the patient's symptoms - Continue with allopurinol and medrol dospak outpatient -follow-up with primary care physician -pain much improved at discharge (2) Cellulitis: Qualifiers: Laterality: right Site of cellulitis: extremity Site of cellulitis of extremity: upper extremity Qualified Code(s): L03.113 - Cellulitis of right upper limb Code(s): L03.90 - Cellulitis, unspecified Status: Acute Assessment and Plan: Cellulitis versus gout--favor gout -ultrasound suspicious for gout changes but unable to elicit any fluid -uric acid is normal although this can be normal in a gout flare -will continue antibiotics outpatient at this time since he is immunosuppressed with an elevated white blood cell count on admission. I do not suspect the elevated WBC today is indicative of infection. Suspect due to steroids since it was initially improving. No blood cultures needed -Will continue cellcept, abx, and medrol dosepak. (3) Venous stasis ulcer: Code(s): I83.009 - Varicose veins of unspecified lower extremity with ulcer of unspecified site; L97.909 - Non-pressure chronic ulcer of unspecified part of unspecified lower leg with unspecified severity Status: Chronic Assessment and Plan: -sees wound care outpatient -will continue with current recommendations (4) Acute exacerbation of CHF (congestive heart failure): Qualifiers: Heart failure type: unspecified Qualified Code(s): I50.9 - Heart failure, unspecified Code(s): I50.9 - Heart failure, unspecified Status: Acute Assessment and Plan: Chest x-ray shows likely CHF with pulmonary edema -he was given IV Lasix and chest x-ray improved -sent home on home regimen -patient is on his chronic requirement of oxygen (5) DM2 (diabetes mellitus, type 2): Code(s): E11.9 - Type 2 diabetes mellitus without complications Status: Chronic Assessment and Plan: Last glucose 224 -continue home regimen -A1c improved now 7.7 -likely more elevated due to steroids (6) COPD (chronic obstructive pulmonary disease): Code(s): J44.9 - Chronic obstructive pulmonary disease, unspecified Status: Chronic Assessment and Plan: No exacerbation noted at this time - Continue with inhalers. - The patient is on oxygen at 5 to his 6 L per nasal cannula chronically (7) Chronic respiratory failure with hypoxia and hypercapnia: Code(s): J96.11 - Chronic respiratory failure with hypoxia; J96.12 - Chronic respiratory failure with hypercapnia Status: Chronic Assessment and Plan: Patient is chronically on oxygen at 5-6 L per nasal cannula. (8) HTN (hypertension) with goal to be determined: Code(s): I10 - Essential (primary) hypertension Status: Chronic Assessment and Plan: Last blood pressure 120/76 - Continue with Lasix and metoprolol at home (9) Obstructive sleep apnea: Code(s): G47.33 - Obstructive sleep apnea (adult) (pediatric) Status: Chronic Assessment and Plan: Continue with CPAP (10) Hyperkalemia: Code(s): E87.5 - Hyperkalemia Status: Acute Assessment and Plan: Mild and resolved -lisinopril stopped at discharge DS: Summary Hospital Course Reason for hospitalization: Joint pain Hospital Course: Patient is a 65-year-old male with a past medical history of CHF, COPD, diabetes, immunosuppressed state and gout who presented emergency room for joint pain. The patient's pain was in his right pointer finger as well as his right knee. Vitals in the ER were stable with the exception of his pulse which was mildl
--- NOTE | 2020-11-04 11:25 | PC.NURSE ---
[facility] pharmacy called re: pt methyprednisone taper order. Pharmacy wanted the dose pack clarified as to when the patient last received med. Pt last received a dose on 11/02/20 at 1236. Since it is now 11/04/20, patient would have tapered down to one dose of medrol today and then stopping tomorrow. Pharmacist will call patient and discuss whether he will need to take this dose today or not, as he has not been taking them now for two days, besides the patient has resumed his home medication, prednisone.
== END 2020-11-02 17:01 | disposition home or self-care (01) | DRG 553 ==
LOC: ANHED 09:26 → ANH2MED 10:14
PROVIDERS: Emergency Medicine; Nurse Practitioner; Orthopaedic Surgery; Physician Assistant; Admitting Provider Family Medicine; Emergency Provider Emergency Medicine; PCP Nurse Practitioner Family; Visit Provider Family Medicine
DX: M10.9 Gout, unspecified (principal); I50.33 Acute on chronic diastolic (congestive) heart failure; D84.89 Other immunodeficiencies; L97.909 Non-pressure chronic ulcer of unspecified part of unspecified lower leg with unspecified severity; J96.11 Chronic respiratory failure with hypoxia; J96.12 Chronic respiratory failure with hypercapnia; D72.829 Elevated white blood cell count, unspecified; T38.0X5A Adverse effect of glucocorticoids and synthetic analogues, initial encounter; I11.0 Hypertensive heart disease with heart failure; I25.10 Atherosclerotic heart disease of native coronary artery without angina pectoris; I83.009 Varicose veins of unspecified lower extremity with ulcer of unspecified site; E11.9 Type 2 diabetes mellitus without complications; J44.9 Chronic obstructive pulmonary disease, unspecified; I25.5 Ischemic cardiomyopathy; Z66 Do not resuscitate; E87.5 Hyperkalemia; E78.5 Hyperlipidemia, unspecified; G47.33 Obstructive sleep apnea (adult) (pediatric); Z99.81 Dependence on supplemental oxygen; I25.2 Old myocardial infarction; Z86.718 Personal history of other venous thrombosis and embolism; Z87.891 Personal history of nicotine dependence; E66.01 Morbid (severe) obesity due to excess calories; Z68.39 Body mass index [BMI] 39.0-39.9, adult
CPT/HCPCS: 36415; 71045; 71046; 73130; 73562; 76882; 80048; 80053; 80202; 81001; 83036; 83735; 83880; 84550; 85025; 85027; 85055; 85610; 85730; 86140; 93970; 96365; 96374; 96375; 97110; 97116; 97161; 97165; 97535; 99285; A9270; G0378; J0131; J0743; J1815; J1940; J2270; J2543; J3370; J7512; J7517

== ENCOUNTER 2021-01-27 07:47 | Inpatient (IN) | payer OTHER, MEDICAID, SELFPAY ==
[2021-01-27] VITALS (20 sets, daily range): BP systolic 95–129; BP diastolic 59–85; PULSE 99–126; RESP 17–28; TEMP 36.2–38.1; O2SAT 88–99; BMI 38.2
--- NOTE | ~2021-01-27 | CT_ITS ---
EXAMINATION: CTA chest PE protocol EXAM DATE: 01/27/2021 10:48 INDICATION: Hypoxia. Elevated d-dimer. Right finger hemiparesis. TECHNIQUE: Spiral CTA of the chest (pulmonary arteries) was performed with 100 cc Omnipaque 350 intr avenous contrast injection. Images were acquired during the pulmonary arterial phase. Coronal maxi mum intensity projection 3D-reconstructions were created by the technologist on dedicated workstation . Axial, coronal and sagittal reformatted images were reviewed. The dose-length product (DLP) for t his examination was 1054.19 mGy-cm. The exposure was tailored according to patient size (auto mA ex posure control), and iterative reconstruction (ASIR) was used as additional dose reduction technique. Comparison is made to prior examination from 08/11/2018. FINDINGS: The main, central pulmonary arteries are dilated which can indicate elevated pulmonary geneva rial pressure, pulmonary arterial hypertension. There are no pulmonary emboli in the 1st through 3rd order (central and interlobar) pulmonary arteries. Some loss of attenuation in the left basilar seg mental pulmonary from respiratory motion, these regions not confidently evaluated. No Intraluminal fi lling defects identified. No thoracic aortic dissection. There is moderate cardiomegaly, enlargement of the ventricles and right atrium more than the left atr ium. Possible coronary arterial stents. Diffuse interlobular septal thickening, and diffuse mild gr oundglass opacity. There is some honeycombing at the lung bases, probably has a chronic component of interstitial lung disease. Superimposed edema should also be considered. This would be atypical appea rohan for COVID. Trace pericardial and pleural effusions. Tracheobronchial tree is patent. There is a prevascular lymph node measuring 3.3 x 1.4 cm, a right lower paratracheal lymph node measu ring 3.2 x 1.8 cm. These have demonstrated modest interval increase in size compared to prior study i n patient with known chronic lymphadenopathy. Can't exclude lymphoma. There is no pneumothorax. U pper abdomen is unremarkable. There is advanced thoracic spondylosis without osteoblastic or osteol ytic lesions identified. IMPRESSION: 1. Limited left basilar segmental evaluation, but no pulmonary emboli are suspected. 2. Moderate cardiomegaly. Interlobular septal thickening and basilar honeycombing. Most likely combi nation of edema and interstitial lung disease. 3. Diffuse mild groundglass opacities most likely edema. Would be atypical appearance for COVID. 4. Chronic mediastinal lymphadenopathy with mild interval enlargement. Lymphoma not excludable. 5. Pulmonary arterial hypertension. Reviewed, dictated and finalized at location A. ALT RAKER IMPRESSION: 1. Limited left basilar segmental evaluation, but no pulmonary emboli are susp ected. 2. Moderate cardiomegaly. Interlobular septal thickening and basilar honeycomb ing. Most likely combination of edema and interstitial lung disease. 3. Diffuse mild groundglass opacities most likely edema. Would be atypical josi earance for COVID. 4. Chronic mediastinal lymphadenopathy with mild interval enlargement. Lymphom a not excludable. 5. Pulmonary arterial hypertension.
--- NOTE | ~2021-01-27 | XR_ITS ---
EXAMINATION: XR chest 1V portable EXAM DATE: 01/27/2021 09:35 INDICATION: Cough. TECHNIQUE: Frontal and lateral projections of the chest obtained and reviewed. Comparison is made to prior examination from 11/01/2020. FINDINGS: There is cardiomegaly. Low lung volume with elevated left hemidiaphragm, possible paralysi s. There is moderate amount of indistinct reticulation appearance most consistent with pulmonary myrna a. Infection not excludable. No pneumothorax or sizable pleural effusion. There are mild bony degener ative changes. IMPRESSION: 1. Moderate airspace disease appearance most consistent with pulmonary edema. Diffuse infection also possible. 2. Cardiomegaly. 3. Left hemidiaphragm elevation. Reviewed, dictated and finalized at location A. R TESTER
--- NOTE | ~2021-01-27 | CT_ITS ---
EXAMINATION: CT forearm RT wo con DATE: 01/29/2021 14:27 INDICATION: Right forearm pain and swelling. TECHNIQUE: Computed tomography (CT) of the right forearm was performed without intravenous contrast. Automated exposure control and iterative reconstruction technique were employed. The dose-length prod uct was 663.91 mGy-cm. COMPARISON: Right forearm radiographs 01/27/2021 FINDINGS: There is elevation of left hemidiaphragm. There are airspace opacities in left lower lobe. There is dependent honeycombing and mild atelectasis in right lung. There is a trace right pleural ef fusion. Cardiomegaly is noted. Motion artifact is noted. The right forearm demonstrates normal bone a lignment. No fracture. There is mild osteoarthritis of first carpometacarpal joint. No elbow joint ef fusion. There is subcutaneous edema in the right upper limb. IMPRESSION: 1. No fracture. Sensitivity is moderately decreased by motion artifact. 2. Airspace opacities in left lung lower lobe, consistent with atelectasis versus pneumonia. 3. Chronic interstitial lung disease. 4. Cardiomegaly. Reviewed, dictated and finalized at location A. NEER BYPRODUCT IMPRESSION: 1. No fracture. Sensitivity is moderately decreased by motion artifact. 2. Airspace opacities in left lung lower lobe, consistent with atelectasis vers us pneumonia. 3. Chronic interstitial lung disease. 4. Cardiomegaly.
--- NOTE | ~2021-01-27 | US_ITS ---
EXAMINATION: US venous doppler LE RT EXAM DATE: 01/27/2021 09:17 INDICATION: Right arm swelling, leg pain. TECHNIQUE: Multiple grayscale, color flow and Doppler images of the right lower extremity deep venous system were obtained and reviewed. Comparison is made to prior examination from 10/30/2020. FINDINGS: The right common femoral, femoral and profunda veins demonstrate normal color flow, respira tory variation, augmentation and compressibility. Compressibility, color flow confirmed within the r ight popliteal, posterior tibial, peroneal, and greater saphenous veins. IMPRESSION: 1. No right lower extremity deep venous thrombosis. Reviewed, dictated and finalized at location A. ARY SCIENCE PROFESSOR
--- NOTE | ~2021-01-27 | XR_ITS ---
EXAMINATION: XR chest 1V portable INDICATION: Pneumonia and fluid overload TECHNIQUE: Portable AP chest at 0528 hours COMPARISON: 01/28/2021 FINDINGS: Stable cardiomegaly is noted. A diffuse interstitial pattern is stable. There is more focal airspace opacity of the left lung base. No pleural effusion or pneumothorax is identified. IMPRESSION: 1. Stable diffuse lung disease, consistent with pneumonia and/or pulmonary edema and/or acute respira tory distress syndrome (ARDS). Reviewed, dictated and finalized at location A. PRESSURE IMPRESSION: 1. Stable diffuse lung disease, consistent with pneumonia and/or pulmonary myrna a and/or acute respiratory distress syndrome (ARDS).
--- NOTE | ~2021-01-27 | XR_ITS ---
EXAMINATION: XR forearm RT 2V EXAM DATE: 01/27/2021 09:35 INDICATION: TECHNIQUE: Right forearm frontal and lateral projections obtained and reviewed. There is no prior st udy for comparison. FINDINGS: There are no acute fractures or dislocations identified. There is no subcutaneous gas. The re is soft tissue swelling over the forearm and wrist. There are no radiopaque foreign bodies. Mod erate sized olecranon spur There are arterial calcifications, arteriosclerosis. IMPRESSION: 1. XR forearm RT 2V exam without acute osseous findings. 2. Soft tissue swelling. Reviewed, dictated and finalized at location A. RNAL COMBUSTION ENGINEER
--- NOTE | ~2021-01-27 | XR_ITS ---
EXAMINATION: XR hand RT min 3V EXAM DATE: 01/27/2021 09:35 INDICATION: No known recent injury provided at this time. Pain of the right hand. Swelling. TECHNIQUE: Right hand frontal, lateral and oblique projections obtained and reviewed. Patient's finge rs were flexed during the exam FINDINGS: Right metacarpal bones are unremarkable. There are no acute fractures or dislocations iden tified. There is no subcutaneous gas. There is soft tissue swelling over the hand. There are no bony erosions identified. There are no radiopaque foreign bodies. There are arterial calcifications, a rteriosclerosis. There is mild polyarticular primary osteoarthritis. IMPRESSION: 1. Right hand exam without acute osseous findings. 2. Soft tissue swelling. 3. Mild osteoarthritis. Reviewed, dictated and finalized at location A. K AND TILE MAKING MACHINE OPERATOR
--- NOTE | ~2021-01-27 | US_ITS ---
EXAMINATION: US venous doppler UE RT EXAM DATE: 01/27/2021 09:17 INDICATION: Right arm swelling and right leg pain. TECHNIQUE: Multiple grayscale, color flow, Doppler sonographic images of the right upper extremity ve ins obtained by technologist. Compression was performed where able. There is no prior study for rahda basurto. FINDINGS: Right upper extremity: Jugular vein: ------------> Normal. Subclavian vein: --------> Normal. Axillary vein:------------> Normal. Brachial vein:-----------> Normal. Basilic vein: ------------> Normal. Cephalic vein: ----------> Normal. Radial vein: ------------> Normal. Ulnar vein: > Normal. IMPRESSION: No deep venous thrombosis of the right upper extremity. Reviewed, dictated and finalized at location A. HOME CAREGIVER
--- NOTE | ~2021-01-27 | CT_ITS ---
EXAMINATION: CT brain wo con EXAM DATE: 01/27/2021 10:46 INDICATION: Right arm hemiparesis, unable to move fingers. Weakness. TECHNIQUE: Spiral CT of the head was performed without contrast. Axial, coronal and sagittal images were reviewed. The dose-length product (DLP) for this examination was 681.00 mGy-cm. The exposure w as tailored according to patient size, and iterative reconstruction (ASIR) was used as additional dos e reduction technique. Comparison is made to prior examination from 03/19/2019. FINDINGS: Study is limited due to patient motion. There is no acute intraparenchymal hemorrhage. No evidence of intraparenchymal brain mass lesion. No evidence of acute infarction. Please note that initial head CT has limited sensitivity for small or acute infarctions. There is mild periventricular and subcortical hypodensity, nonspecific but probably related to small vessel ischemic disease. Th ere is mild prominence of the sulci and ventricles related to cerebral atrophy. There is intracrani al carotid arteriosclerosis. There are no extra-axial collections. There is no mass effect or midli ne shift. The orbits are unremarkable. Soft tissue is unremarkable. Completely opacified right max illary sinus with air-fluid level, wall thickening indicating history of chronic mucoperiosteal thick ening. IMPRESSION: 1. No acute intracranial findings. 2. Chronic age related findings. 3. Nearly opacified right maxillary sinus, air-fluid level, chronic and possibly acute sinusitis. Reviewed, dictated and finalized at location A. OMATIC OFFICER IMPRESSION: 1. No acute intracranial findings. 2. Chronic age related findings. 3. Nearly opacified right maxillary sinus, air-fluid level, chronic and possib ly acute sinusitis.
--- NOTE | ~2021-01-27 | XR_ITS ---
EXAMINATION: XR chest 1V portable INDICATION: Congestive heart failure exacerbation TECHNIQUE: Portable AP chest at 0505 hours COMPARISON: 01/29/2021 FINDINGS: There is stable cardiomegaly. A diffuse interstitial pattern persists with slight worsening . There are small pleural effusions. No pneumothorax is identified. There are focal opacities in the left lung base. IMPRESSION: 1. Cardiomegaly with worsening pulmonary edema. 2. Small pleural effusions. 3. Left basilar airspace opacity, consistent with atelectasis versus pneumonia. Reviewed, dictated and finalized at location A. D ESCORT
--- NOTE | ~2021-01-27 | XR_ITS ---
EXAMINATION: XR chest 1V portable EXAM DATE: 01/28/2021 10:27 INDICATION: Shortness of breath. Right arm pain and swelling. TECHNIQUE: Portable AP frontal chest x-ray was obtained. Comparison is made to prior examination from 01/27/2021. Correlation also made with CT pulmonary scan from yesterday. FINDINGS: There is cardiomegaly. Indistinct reticulation probably combination of patient's chronic in terstitial lung disease and pulmonary edema. There is pulmonary vascular congestion. Elevated left he midiaphragm unchanged. There is no pneumothorax suspected. No sizable pleural effusion. There is no s ignificant interval change. IMPRESSION: 1. Cardiomegaly, congestion. 2. Abnormal reticulation likely combination of pulmonary fibrosis and edema. Pneumonia not excludabl e. 3. Chronic left hemidiaphragm elevation. Reviewed, dictated and finalized at location A. MOTIVE ENGINEER ELECTRIC IMPRESSION: 1. Cardiomegaly, congestion. 2. Abnormal reticulation likely combination of pulmonary fibrosis and edema. P neumonia not excludable. 3. Chronic left hemidiaphragm elevation.
--- NOTE | 2021-01-27 08:16 | ECG_ITS ---
Measurements Intervals [place] Rate: 120 P: -10 GA: 232 QRS: 233 QRSD: 185 T: 17 QT: 345 QTc: 489 Interpretive Statements ATRIAL TACHYCARDIA/FLUTTER WITH RAPID VENTRICULAR RESPONSE VENTRICULAR PREMATURE COMPLEX RIGHT AXIS DEVIATION RIGHT BUNDLE BRANCH BLOCK BASELINE ARTIFACT- I, II, III, AVL, AVF ABNORMAL ECG Electronically Signed On 01-27-2021 8:33:13 [employer]ED SERVICES ANALYST by Germain Bermeo D.O.
--- NOTE | 2021-01-27 08:28 | ED.WEAKNESS ---
HPI - Weakness General Chief complaint: Weakness Stated complaint: weakness/pain in feet Time Seen by Provider: 01/27/21 08:00 Source: patient Mode of arrival: EMS Limitations: no limitations History of Present Illness HPI Narrative: This is a 65 year old male with history DM, CHF, gout, COPD, oxygen dependent 6L [place] who presents via EMS for evaluation of generalized weakness. He states he has been sitting in his recliner for 2 days. He has been unable to get up due to generalized weakness. She has not been able to take his medications. He complains of right arm pain and right arm swelling. he has history of cellulitis vs gout flare up to that right arm. He denies chest pain or worsening shortness of breath. He does report a mild cough. He has increased swelling to right arm and right leg. He was found to have fever in ER. MD Complaint: generalized weakness Related Data Home Medications Medication Instructions Recorded Confirmed Incruse Ellipta 1 inh INHALATION DAILY PRN 05/03/20 01/27/21 allopurinol 100 mg PO BID 05/03/20 01/27/21 atorvastatin 20 mg PO DAILY 05/03/20 01/27/21 furosemide 40 mg PO BID 05/03/20 01/27/21 metformin 1,000 mg PO BID 05/03/20 01/27/21 metoprolol succinate 25 mg PO DAILY 05/03/20 01/27/21 mycophenolate mofetil 1,500 mg PO BID 05/03/20 01/27/21 prednisone 10 mg PO DAILY 05/03/20 01/27/21 zolpidem 10 mg PO HS PRN 05/03/20 01/27/21 gabapentin [Neurontin] 400 mg PO Q8HR 10/30/20 01/27/21 Allergies Allergy/AdvReac Type Severity Reaction Status Date / Time cyclobenzaprine AdvReac Unknown Other Verified 01/27/21 07:59 Review of Systems Review of Systems: All systems reviewed & are unremarkable except as noted in HPI and below Constitutional: Constitutional: Denies chills, Reports fever(s) and Reports weakness ENT: Denies sore throat Cardiovascular: Cardiovascular: Denies chest pain Respiratory: Respiratory: Reports cough and Reports dyspnea (chronic) Gastrointestinal: Gastrointestinal: Denies abdominal pain, Denies nausea and Denies vomiting Musculoskeletal: Musculoskeletal: Reports arthralgias and Reports joint swelling Neurologic: Denies headache(s) and Reports weakness PMFSH Past Medical History Medical History (Updated 01/27/21 @ 11:36 by Gisell Joseph MD) CAD (coronary artery disease) Non STEMI May 2007 Chronic respiratory failure with hypoxia and hypercapnia Congestive heart failure Mixed grade 1 diastolic and EF around 35%. COPD (chronic obstructive pulmonary disease) COPD (chronic obstructive pulmonary disease) Coronary artery disease DM2 (diabetes mellitus, type 2) Gout History of DVT (deep vein thrombosis) Left leg June 21, 2018. he had a DVTs his left leg and he was on anti coagulation for brief period time and then was taken off. HTN (hypertension) with goal to be determined Hyperlipidemia Hypertension Ischemic cardiomyopathy Obstructive sleep apnea Pilonidal cyst Extracted Surgical History Surgical History H/O cardiac catheterization 2006 H/O elbow surgery On the left H/O laminectomy 2002 History of cardiac cath Family History Family History Sibling Congestive heart failure Mother Heart disease Hypertension Father Heart disease Emphysema of lung Social History Social History (Updated 10/30/20 @ 13:50 by Lakia Raya NP) Social History: The patient is . 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 So is a DNR. His daughter yanet Rodriguez is a durable power kindergarten tutor for healthcare. According to old records he used to drink anywhere from 20-30 beers a week any states he does not do that anymore. He tells me that the other night he took a pain pill and went to the [facility] drinks 6 beers. He states that he may drink a few beers and then not drink again for several months. The pa
[2021-01-27 08:31] LABS: Basophils Absolute Auto 0.1 K/mm3 (0.0-0.1); Basophils Percent Auto 0.4 % (0.2-1.2); Hemoglobin 13.5 g/dL (14.0-18.0); Immature Granulocyte Absolute 0.29 K/mm3 (0.00-0.031); Immature Granulocyte Percent A 1.6 % (0-0.5); Lymphocytes Absolute Auto 1.25 K/mm3 (0.9-3.2); Mean Corpuscular HGB Conc 30.7 g/dl (32-36); Mean Corpuscular Volume 101.1 fl (80-100); Mean Platelet Volume 10.8 fl (7.4-10.4); Monocytes Absolute Auto 1.4 K/mm3 (0.1-0.6); Neutrophils Absolute Auto 14.9 K/mm3 (1.3-6.7); Nucleated Red Blood Cells Perc 0.2 % (0.0-0.2); Platelet Count Result 205 k/mm3 (150-375); Red Blood Count 4.35 M/mm3 (4.6-6.20); Red Cell Distribution Width 16.8 % (11.5-14.5)
[2021-01-27 08:36] LABS: Alveolar/Arterial O2 Gradient 185.8 mmHg; Carboxyhemoglobin 2.2 % THb (0-2.0); Fractional Inspired Oxygen 44 %; HCO3 ABG 31.7 mEq/l (22.0-26.0); Methemoglobin ABG 0.2 %THb (0-1.5); Oxygen Content ABG 17.2 %vol (16.0-22.0); Oxygen Saturation ABG 95.9 % (95.0-100.0); Oxyhemoglobin 92.6 % THb (90.0-100.0); PCO2 ABG 44.9 mmHg (35.0-45.0); PO2 ABG 76.7 mmHg (80.0-100.0); PO2 FiO2 Ratio Arterial Blood 1.74 %; Total Hemoglobin 13.2 g/dL (12.0-18.0); pH ABG 7.466 (7.350-7.450)
[2021-01-27 08:37] LABS: Site Drawn LEFT BRACHIAL
[2021-01-27 08:38] LABS: Device NASAL CANNULA
[2021-01-27 08:41] LABS: INR 1.2; Prothrombin Time 15.8 Seconds (11.1-14.7)
[2021-01-27 08:42] LABS: Partial Thromboplastin Time 27.8 SECONDS (22.3-36.8)
[2021-01-27 08:44] LABS: D Dimer 2.45 ug/mL (<0.48)
[2021-01-27 08:47] LABS: Lactic Acid Reflex 2.1 mmol/L (0.7-2.1)
[2021-01-27 09:01] LABS: Alanine Aminotransferase 21 U/L (4-50); Albumin Level 4.3 g/dL (3.5-5.1); Alkaline Phosphatase 81 U/L (38-126); Anion Gap 9 mmol/L (8-16); Aspartate Amino Transferase 37 U/L (17-59); Bilirubin,Total 2.5 mg/dL (0.2-1.3); Blood Urea Nitrogen 42 mg/dL (9-20); Calcium 9.3 mg/dL (8.4-10.2); Carbon Dioxide 35 mmol/L (22-30); Chloride 98 mmol/L (98-107); Creatine Kinase 603 U/L (55-170); Estimated CRCL calculation 51 ml/min; Estimated Glomerular Filt Rate 44; Glucose 226 mg/dL (75-110); Magnesium 2.3 mg/dL (1.6-2.3); NT Pro B Type Natriuretic Pept 6790 PG/ML (5-100); Potassium 4.6 mmol/L (3.4-5.0); Sodium 142 mmol/L (137-145); Troponin I 0.138 ng/mL (0.000-0.034)
[2021-01-27] MEDS: GABAPENTIN 400 MG CAPSULE PO ×2 (09:14→18:20)
[2021-01-27 09:23] LABS: CRP 36.4 mg/dL (<1.0)
[2021-01-27 09:45] LABS: Add Urine Microscopic? YES; Appearance Urine Clear (Clear); Bacteria Urine Trace /hpf; Bilirubin Urine Negative (Negative); Blood Urine 1+ (Negative); Color Urine Yellow (Yellow); Glucose Urine UA Negative (Negative); Ketones Urine Trace mg/dL (Negative); Leukocyte Esterase Ur Negative LEU/UL (Negative); Nitrate Urine Negative (Negative); Protein Urine 2+ mg/dL (Negative); RBC Urine 0-2 /hpf (0-2); Urobilinogen Urine Negative mg/dL (<2.0); WBC Urine 0-3 /hpf
[2021-01-27 11:27] LABS: Reflex Lactic Acid Yes or No Add Lactic
[2021-01-27] MEDS: ASPIRIN 81 MG CHEWABLE TABLET 324 MG PO (11:47)
[2021-01-27] MEDS: FUROSEMIDE INJ 40 MG/4 ML VIAL IV PUSH (11:47)
[2021-01-27 11:59] LABS: Lactic Acid 1.6 mmol/L (0.7-2.1)
[2021-01-27 13:09] LABS: Glucose Point of Care 253 (65-105)
[2021-01-27 13:31] LABS: Troponin I 0.159 ng/mL (0.000-0.034)
--- NOTE | 2021-01-27 13:52 | PM.IMHP ---
H&P: HPI History of Present Illness Date/Time: 01/27/21 13:52 Chief Complaint: shortness of breath, generalised weakness Narrative: Sam Stephen is a 65 year old male with history DM, CHF, gout, COPD, oxygen dependent 6L [place] who presents via EMS for evaluation of generalized weakness. He states he has been sitting in his recliner for 2 days. He has been unable to get up due to generalized weakness. She has not been able to take his medications. He complains of right arm pain and right arm swelling. he has history of cellulitis vs gout flare up to that right arm. He denies chest pain or worsening shortness of breath. He does report a mild cough. He has increased swelling to right arm and right leg. He was found to have fever in ER. he also have congestive chagnes in his lungs, cta neativef ro PE done for elevated D ddimer. he reports chronic pain for which he takes opiates at home. he has diabetes with underlying periopheral neuropathic pain. Review of Systems Constitutional: Constitutional: Reports fatigue, Reports lethargy and Reports weakness Eyes: Eyes: Denies blurry vision and Denies photophobia ENT: Denies Normal hearing present and Denies nasal congestion Cardiovascular: Cardiovascular: Denies chest pain and Denies diaphoresis Respiratory: Respiratory: Reports chest congestion, Reports cough, Denies hemoptysis, Reports dyspnea, Reports dyspnea on exertion and Denies wheezing Gastrointestinal: Gastrointestinal: Denies abdominal pain, Denies bloating, Denies constipation and Denies diarrhea Genitourinary: Genitourinary: Denies dysuria and Denies urinary frequency Musculoskeletal: Musculoskeletal: Denies back pain and Denies neck pain Integumentary/Breasts: Skin/Breast: Reports dry skin and Denies pruritus Neurologic: Denies confusion, Denies headache(s) and Denies numbness Psychiatric: Psychiatric: Denies anxiety and Denies behavioral changes Endocrine: Endocrine: Denies polydipsia and Denies polyuria Hematologic/Lymphatic: Hematologic/Lymphatic: Denies easy bleeding and Denies easy bruising Allergic/Immunologic: Allergic/Immunologic: Denies lip swelling and Denies throat swelling [facility] Past Medical History Medical History (Updated 01/27/21 @ 11:36 by Gisell Joseph MD) CAD (coronary artery disease) Non STEMI May 2007 Chronic respiratory failure with hypoxia and hypercapnia Congestive heart failure Mixed grade 1 diastolic and EF around 35%. COPD (chronic obstructive pulmonary disease) COPD (chronic obstructive pulmonary disease) Coronary artery disease DM2 (diabetes mellitus, type 2) Gout History of DVT (deep vein thrombosis) Left leg June 21, 2018. he had a DVTs his left leg and he was on anti coagulation for brief period time and then was taken off. HTN (hypertension) with goal to be determined Hyperlipidemia Hypertension Ischemic cardiomyopathy Obstructive sleep apnea Pilonidal cyst Extracted Surgical History Surgical History H/O cardiac catheterization 2006 H/O elbow surgery On the left H/O laminectomy 2002 History of cardiac cath Family History Family History Sibling Congestive heart failure Mother Heart disease Hypertension Father Heart disease Emphysema of lung Social History Social History (Updated 10/30/20 @ 13:50 by Lakia Raya NP) Social History: The patient is . 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 So is a DNR. His daughter yanet Rodriguez is a durable power environmental attorney for healthcare. According to old records he used to drink anywhere from 20-30 beers a week any states he does not do that anymore. He tells me that the other night he took a pain pill and went to the [facility] drinks 6 beers. He states that he may drink a few beers and then not drink again for several months. The patient smoked up to 2 packs
--- NOTE | 2021-01-27 13:55 | PC.NURSE ---
This patient, Sam Stephen, was admitted to IMU Room 210-01. Patient/family oriented to hospital policies and general routines including ID bracelet, bed and alarms, visiting hours, pain management, procedures, bathroom and other care routines, personal items, smoking policy, room service/diet, and visiting hours. Information on how to activate the Rapid Response Team has been discussed. Patient/Family are encouraged to report perceived risks to care and to ask questions if they do not understand what they are told or what they should do.
--- NOTE | 2021-01-27 14:33 | PCOTNOTE ---
OT evaluation attempted, patient in pain and has not been able to have pain medication at this time.
[2021-01-27] MEDS: HYDROcodone/acetaminophen (*CRX) 5-325 MG TABLET 2 TAB PO ×2 (15:05→21:25)
[2021-01-27 15:14] LABS: Uric Acid 10.6 mg/dL (3.5-8.5)
[2021-01-27 15:29] LABS: Troponin I 0.154 ng/mL (0.000-0.034)
[2021-01-27] MEDS: allopurinoL 100 MG TABLET PO (17:27)
[2021-01-27 18:02] LABS: Glucose Point of Care 188 (65-105)
[2021-01-27] MEDS: FUROSEMIDE INJ 100 MG/10 ML VIAL 60 MG IV PUSH (18:21)
[2021-01-27 19:47] LABS: SARS-CoV-2 RNA PCR Negative
[2021-01-27] MEDS: ATORVASTATIN 20 MG TABLET PO (20:23)
[2021-01-27] MEDS: INSULIN GLARGINE (*BKC) 100 UNITS/ML 15 UNITS SUB-Q (20:23)
[2021-01-27 20:27] LABS: Glucose Point of Care 249 (65-105)
[2021-01-27] MEDS: ZOLPIDEM TARTRATE (*CRX) 5 MG TABLET 10 MG PO (22:18)
[2021-01-27] MEDS: ALBUTEROL SULFATE (*SP) AEROSOL 1 PUFF 2 PUFF INHALATION (22:25)
--- NOTE | 2021-01-27 22:41 | PC.NURSE ---
patient has been educated on use of a bipap with full face mask for proper oxygenation. patient wears 6L nasal cannula at home and is currently on autopap with a 6L bleed in with oxygen saturations in the mid 80's. patient states he is unwilling to wear the full face mask and verbalizes understanding of education and consequences thereof. MD notified.
--- NOTE | 2021-01-27 22:47 | PCRCNOTE ---
At 22:45 pt educated on the importance of switching to a full face mask and to a v6o cpap machine to help support oxygenation needs. PT refused at this time said he understood and would only switch to it if he drops to the 70's spo2 level. Pt made aware of the risk.
[2021-01-28] VITALS (29 sets, daily range): BP systolic 95–123; BP diastolic 62–84; PULSE 51–110; RESP 20–29; TEMP 36–37.6; O2SAT 88–100
[2021-01-28 04:43] LABS: Basophils Absolute Auto 0.1 K/mm3 (0.0-0.1); Basophils Percent Auto 0.4 % (0.2-1.2); Eosinophils Absolute Auto 0.1 K/mm3 (0-0.3); Eosinophils Percent Auto 0.4 % (0-4.4); Hematocrit 38.5 % (42.0-52.0); Hemoglobin 11.8 g/dL (14.0-18.0); Immature Granulocyte Absolute 0.16 K/mm3 (0.00-0.031); Lymphocytes Absolute Auto 1.38 K/mm3 (0.9-3.2); Lymphocytes Percent Auto 8.3 % (18.3-44.2); Mean Corpuscular HGB Conc 30.6 g/dl (32-36); Mean Corpuscular Hemoglobin 31.2 pg (26-34); Mean Corpuscular Volume 101.9 fl (80-100); Mean Platelet Volume 10.7 fl (7.4-10.4); Monocytes Absolute Auto 1.4 K/mm3 (0.1-0.6); Monocytes Percent Auto 8.4 % (2.6-8.5); Neutrophils Absolute Auto 13.6 K/mm3 (1.3-6.7); Neutrophils Percent Auto 81.5 % (45.5-73.1); Nucleated Red Blood Cells Perc 0.1 % (0.0-0.2); Platelet Count Result 186 k/mm3 (150-375); Red Blood Count 3.78 M/mm3 (4.6-6.20); Red Cell Distribution Width 16.7 % (11.5-14.5); White Blood Count 16.7 K/mm3 (4.5-10.0)
[2021-01-28 04:57] LABS: Alanine Aminotransferase 23 U/L (4-50); Albumin Level 3.6 g/dL (3.5-5.1); Alkaline Phosphatase 76 U/L (38-126); Anion Gap 4 mmol/L (8-16); Aspartate Amino Transferase 46 U/L (17-59); Bilirubin,Total 1.2 mg/dL (0.2-1.3); Blood Urea Nitrogen 52 mg/dL (9-20); Calcium 8.3 mg/dL (8.4-10.2); Carbon Dioxide 38 mmol/L (22-30); Chloride 98 mmol/L (98-107); Estimated CRCL calculation 44 ml/min; Estimated Glomerular Filt Rate 38; Glucose 168 mg/dL (75-110); Potassium 4.7 mmol/L (3.4-5.0); Sodium 140 mmol/L (137-145)
[2021-01-28 05:19] LABS: Hemoglobin A1C 7.7 % (<5.7)
[2021-01-28 07:51] LABS: Glucose Point of Care 150 (65-105)
[2021-01-28] MEDS: allopurinoL 100 MG TABLET PO ×2 (08:55→17:30)
[2021-01-28] MEDS: ASPIRIN 81 MG ENTERIC TABLET PO (08:55)
[2021-01-28] MEDS: FUROSEMIDE INJ 100 MG/10 ML VIAL 60 MG IV PUSH ×2 (08:56→17:30)
[2021-01-28] MEDS: ENOXAPARIN 40 MG/0.4 ML SYRINGE SUB-Q (08:56)
[2021-01-28] MEDS: METOPROLOL SUCCINATE EXT REL 25 MG TABCR PO (09:01)
[2021-01-28] MEDS: GABAPENTIN 400 MG CAPSULE PO ×3 (09:01→17:29)
--- NOTE | 2021-01-28 09:35 | PM.CNPUL ---
Assessment and Plan Assessment and plan (1) COPD (chronic obstructive pulmonary disease): Code(s): J44.9 - Chronic obstructive pulmonary disease, unspecified Status: Chronic Assessment and Plan: Patient with a history of tobacco use and COPD with FEV1 of 2.07 L, 69% predicted on 08/26/2018, mild centrilobular emphysema on his CT scan 01/27/2021 with high peak hypoxemia on 6 L oxygen at home 24/7, pulmonary hypertension with an pulmonary artery systolic pressure of 44 on echo 05/05/2020. He has no hypercarbia on previous blood gases from 03/19/2019 were pH of 7.36/43/69 on 6 L nasal cannula. ABG on 05/03/2020 was pH 7.36/48/71 on 6 L nasal cannula. Maintained on incruse ellipta 1 puff Q day. Patient has no change in his phlegm, no wheezing, and minimal change in his chronic shortness of breath. I do not feel this is a COPD exacerbation and recommend continuing his daily dose of prednisone 10 mg p.o. q.day and place him on ipratrotrium Q 4 hours while awake. I do not see need for systemic steroids at this point. patient does state that he had a fever at home and he had a leukocytosis. I agree with vanc Zosyn and azithromycin empirically while awaiting cultures. His SARS-CoV-2 test and his influenza swab are negative. (2) Congestive heart failure: Qualifiers: Heart failure chronicity: acute on chronic Heart failure type: systolic Qualified Code(s): I50.23 - Acute on chronic systolic (congestive) heart failure Code(s): I50.9 - Heart failure, unspecified Status: Chronic Assessment and Plan: Patient has a history of ischemic cardiomyopathy with an EF of 35-40 on his last echocardiogram 05/05/2020. Patient presents with edema, elevated BNP and evidence of congestion on his CT scan. I agree with aggressive diuresis as tolerated by his cardiac and renal function. (3) Obstructive sleep apnea: Code(s): G47.33 - Obstructive sleep apnea (adult) (pediatric) Status: Chronic Assessment and Plan: patient has a history of obstructive sleep apnea on BiPAP with 6 L bleed in at night. Patient does not know his BiPAP settings at this time. I have instructed patient to have his family bring in his home BiPAP unit so that he can use this in the hospital. Patient stated that he slept with CPAP 15 last night and this felt very comfortable for him. If his family is unable to bring his BiPAP machine in today I will continue CPAP 15 with oxygen bleed in to maintain saturations greater than 90 red and then try to gas at his BiPAP settings. (4) Interstitial lung disease: Code(s): J84.9 - Interstitial pulmonary disease, unspecified Status: Acute Assessment and Plan: Regarding interstitial lung disease this was noticed on his 1st CT scan of the chest from 01/13/2010 with dependent ground-glass and reticular opacities in the upper and lower lobes. High-resolution CT scan on 08/11/2018 showed diffuse lung disease with mild emphysema and peripheral based ground-glass infiltrates in superior segment of left lower lobe in the right lower lobe now with honeycombing in these areas. CT scan on 01/27/2021 shows minimal change from 2018 with continued interstitial infiltrates and bibasilar right greater than left unchanged honeycombing from 2018. Patient states that he was evaluated at [facility] for this interstitial lung disease. I do not have these records. Patient was started on mycophenolate and titered up to his dose now which is 1500 mg p.o. b.i.d.. He states he has been on this medicine for few years. Patient is also on prednisone 10. 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 I agree with prednisone 10 mg q.day for now. Once infection is excluded, cultures are negative and patient improves clinically we can reconsider starting his mycophenolate. Will follow with you. History of Present Illness History of Present Illness Consult d
[2021-01-28 09:47] LABS: Influenza Control Positive
--- NOTE | 2021-01-28 09:48 | PM.IMPN ---
Progress Note: A&P Assessment and Plan (1) Pulmonary edema: Code(s): J81.1 - Chronic pulmonary edema Status: Acute (2) Cellulitis: Qualifiers: Laterality: right Site of cellulitis: extremity Site of cellulitis of extremity: upper extremity Qualified Code(s): L03.113 - Cellulitis of right upper limb Code(s): L03.90 - Cellulitis, unspecified Status: Acute (3) Acute exacerbation of CHF (congestive heart failure): Code(s): I50.9 - Heart failure, unspecified Status: Acute (4) COPD (chronic obstructive pulmonary disease): Code(s): J44.9 - Chronic obstructive pulmonary disease, unspecified Status: Chronic (5) Congestive heart failure: Qualifiers: Heart failure type: systolic Heart failure chronicity: acute on chronic Qualified Code(s): I50.23 - Acute on chronic systolic (congestive) heart failure Code(s): I50.9 - Heart failure, unspecified Status: Chronic (6) Chronic respiratory failure with hypoxia and hypercapnia: Code(s): J96.11 - Chronic respiratory failure with hypoxia; J96.12 - Chronic respiratory failure with hypercapnia Status: Chronic (7) CAD (coronary artery disease): Qualifiers: Coronary Disease-Associated Artery/Lesion type: [place] artery [place] vs. transplanted heart: [place] heart Associated angina: without angina Qualified Code(s): I25.10 - Atherosclerotic heart disease of [place] coronary artery without angina pectoris Code(s): I25.10 - Atherosclerotic heart disease of [place] coronary artery without angina pectoris Status: Chronic (8) DM2 (diabetes mellitus, type 2): Code(s): E11.9 - Type 2 diabetes mellitus without complications Status: Chronic (9) Hyperlipidemia: Qualifiers: Hyperlipidemia type: mixed hyperlipidemia Qualified Code(s): E78.2 - Mixed hyperlipidemia Code(s): E78.5 - Hyperlipidemia, unspecified Status: Chronic (10) HTN (hypertension) with goal to be determined: Code(s): I10 - Essential (primary) hypertension Status: Chronic (11) Obstructive sleep apnea: Code(s): G47.33 - Obstructive sleep apnea (adult) (pediatric) Status: Chronic (12) Neuropathy: Code(s): G62.9 - Polyneuropathy, unspecified Status: Acute (13) YANELIS (acute kidney injury): Code(s): N17.9 - Acute kidney failure, unspecified Status: Acute (14) Ischemic cardiomyopathy: Code(s): I25.5 - Ischemic cardiomyopathy Status: Acute Additional Plan # generalised weakness: multifactorial. chf exacerbation, suspected atypical lung infection. right elbow cellulitis vs septic arthritis? # Acute on chronic respiratory failrue: home home oxygen 6l continuos. diuresis. cta negative for PE. shows either atypical infection or chf. diuresis to continue. received 40 mg iv lasix in the ED. echo in am. pulmonary and cardiology consultation. screened for COVID which caem back negative. increasd oxygen requirement today. CPAP auto at night. will repeat cxr. await pulmoanry cand cardiology ealuation. echo pending. cotninue diureiss. # Acute on chornic congestive heart failrue: diastolic and systolic. last EF 35%. diuresis. echo repeat. [id number] consultation. conitnue diureiss. cr up to 1.8 today. will continue to monitor. echo pendig. # elevated troponin: likely from CHF itself. cardiology consutlation. no chest pain. flat troponin trend. # right elbow swelling and pain: xray with soft tissue swelling. ? septic arthritis vs cellutis. will have orthopedics consulted for further evaluation. treat for cellutlis with vancomycin and zosyn. will get US right elbow for further evluaation. this is pending. # chronic right hand gouty arthropathy: seen by orthopedics recently # CAD # DM2: on insulin. will start insulin regimen. # COPD: home medications. albuterol inahler prn. # hx of DVT: left leg 2018, not on anitcoagulation anymore. # HTN:
[2021-01-28] MEDS: IPRATROPIUM BR 0.02% INH SOLN 0.5 MG/2.5 ML VIAL INHALATION ×2 (12:08→19:32)
[2021-01-28 12:13] LABS: Glucose Point of Care 233 (65-105)
--- NOTE | 2021-01-28 12:31 | PM.CNCAR ---
Assessment and Plan Additional Plan This is a 65-year-old man with: Multivessel coronary artery disease based on evaluation that was done down at [facility]. Apparently he was felt not to be a surgical candidate and is therefore being treated medically. He enters the hospital with a chief complaint of severe generalized weakness to the point where he was unable to get up and as such has been off of his medications for at least several days. Not surprisingly he has the chest x-ray that looks like some decompensated left-sided heart failure. Oxygen requirements are elevated compared with yesterday. I agree with advancing his furosemide as well as continuing his carvedilol. I am going to resume lisinopril which we started last year and was discontinued for some reason. Presumably this is because of his renal insufficiency although it must be remembered this is a chronic issue we do not believe this gentleman has renal artery stenosis and UMER-inhibitor or ARB therapy would be very important in terms of treating his ischemic cardiomyopathy. Apparently because of his poor chronic condition he wishes to be DNR and those note orders are on the chart and are at are noted. Hopefully he will respond to more aggressive diuretics and resuming his heart failure medications that apparently he was off of for several days. There was a modest troponin rise during this admission there was checked for some reason. Since he is known to have extensively diseased coronaries and some decompensated heart failure as well as chronic kidney disease troponin elevation is expected and not indicative of an acute coronary syndrome Maikol Rosado MD [facility] History of Present Illness History of Present Illness Consult date/time: 01/28/21 12:31 Consult reason: congestive heart failure Reason For Visit: Acute on Chronic CHF,Generalized Weakness,PUI COVI Narrative: This is a 65-year-old man who is known to have coronary disease apparently multivessel disease and ischemic left ventricular dysfunction web seeing at the request of the hospitalist because of shortness of breath and what appears to be some decompensation in congestive heart failure. This is a patient who apparently follows with Cardiology down in [facility] in [place]. He was seen by our practice last summer when he was in this hospital with some CHF decompensation. Apparently he is known to have severe multivessel disease but because of comorbidities was declined as a surgical candidate for revascularization. He was admitted here yesterday after being seen in the emergency room complaining of generalized weakness to the point where he was unable to get up. The reason for this is not entirely clear but what appears to be the case is that he was unable to get out of bed for least 2 days worth possibly 3 days and for that reason has not taken any of his medication for at least that long. He lives with his son ultimately he was brought to the emergency room when he was evaluated. In the ED he was not really reporting any cardiac symptomatology. His chest x-ray looks somewhat congested on appearance and his oxygen requirements have increased today. He was tested for Coronavirus and that is negative. His previous ultrasounds here have demonstrated a moderately reduced ejection fraction of about 30%. When we saw him here last time he was on metoprolol furosemide and had been started on a moderate modest dose of lisinopril. After reviewing the chart it appears the lisinopril has been stopped but the reason for that is not clearly stated. The patient is resting comfortably in room 210 as a into the room wearing a BiPAP mask upon awakening does not offer any other complaints he is not reporting any chest pain of any sort. He does have evidence of chronic kidney disease with a BUN of 52 and a creatinine of 1.8. These findings are chronic. Review of Systems Constitutional: Constitutional: Repor
[2021-01-28] MEDS: INSULIN ASPART (*BKC) 100 UNITS/ML SUB-Q ×2 (12:35→17:30)
--- NOTE | 2021-01-28 14:29 | PM.CNOR ---
Assessment and Plan Assessment and plan (1) Cellulitis: Qualifiers: Laterality: right Site of cellulitis: extremity Site of cellulitis of extremity: upper extremity Qualified Code(s): L03.113 - Cellulitis of right upper limb Code(s): L03.90 - Cellulitis, unspecified Status: Acute Assessment and Plan: Right forearm cellulitis. Had a skin tear which may be the likely culprit. No definite elbow sepsis. Ankle pain consistent with gout. Agree with antibiotic coverage. Will follow. History of Present Illness HPI Consult date: 01/29/21 Chief complaint: Acute on Chronic CHF,Generalized Weakness,PUI COVI Narrative: 65-year-old male with multiple severe medical comorbidities complains of pain and swelling in the right forearm. Exquisite tenderness. Also states that both of his ankles are sore and his right wrist. History of gout. Review of Systems Review of Systems: Narrative: Multiple current medical comorbidities. Well documented in the admission history and physical. Include weakness shortness of breath joint pains and aches. [facility] Past Medical History Medical History CAD (coronary artery disease) Non STEMI May 2007 Chronic respiratory failure with hypoxia and hypercapnia Congestive heart failure Mixed grade 1 diastolic and EF around 35%. COPD (chronic obstructive pulmonary disease) COPD (chronic obstructive pulmonary disease) Coronary artery disease DM2 (diabetes mellitus, type 2) Gout History of DVT (deep vein thrombosis) Left leg June 21, 2018. he had a DVTs his left leg and he was on anti coagulation for brief period time and then was taken off. HTN (hypertension) with goal to be determined Hyperlipidemia Hypertension Ischemic cardiomyopathy Obstructive sleep apnea Pilonidal cyst Extracted Surgical History Surgical History H/O cardiac catheterization 2006 H/O elbow surgery On the left H/O laminectomy 2002 History of cardiac cath Family History Family History Sibling Congestive heart failure Mother Heart disease Hypertension Father Heart disease Emphysema of lung Social History Social History Social History: The patient is . 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 So is a DNR. His daughter yanet Rodriguez is a durable power privacy attorney for healthcare. According to old records he used to drink anywhere from 20-30 beers a week any states he does not do that anymore. He tells me that the other night he took a pain pill and went to the W drinks 6 beers. He states that he may drink a few beers and then not drink again for several months. The patient smoked up to 2 packs of cigarettes a day for greater than 40 years. He stated that he has quit smoking. 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 the patient is on disability. Smoking packs per day: 2 Smoking cigarettes per day: 40.0 Years smoked: 50 Smoking pack-years: 100.00 Smoking status: Former smoker Tobacco type: cigarettes Smoking end date: 07/25/18 Alcohol intake: current Substance use: never Substance use type: methamphetamine Other substance usage details: History of meth use;None current Last use: Quit at 40yrs old Gender identity (if verbalized by the patient): Male Spiritual care concerns: No Meds Home Medications and Allergies Home Medications Medication Instructions Recorded Confirmed Type Incruse Ellipta 1 inh INHALATION DAILY PRN 05/03/20 01/27/21 History allopurinol 100 mg PO BID 05/03/20 01/27/21 History atorvastatin 20 mg PO DAILY 05/03/20 01/27/21 History furosemide 40 mg PO BID 05/03/20 01/27/21 History metformin 1
[2021-01-28 16:34] LABS: Glucose Point of Care 237 (65-105)
[2021-01-28] MEDS: ALBUTEROL SULFATE (*SP) AEROSOL 1 PUFF 2 PUFF INHALATION (19:32)
[2021-01-28 19:57] LABS: Glucose Point of Care 202 (65-105)
[2021-01-28] MEDS: ATORVASTATIN 20 MG TABLET PO (21:54)
[2021-01-28] MEDS: INSULIN GLARGINE (*BKC) 100 UNITS/ML 15 UNITS SUB-Q (22:03)
[2021-01-29] VITALS (25 sets, daily range): BP systolic 91–104; BP diastolic 44–64; PULSE 92–105; RESP 20–26; TEMP 35.8–37.2; O2SAT 90–100
[2021-01-29] MEDS: IPRATROPIUM BR 0.02% INH SOLN 0.5 MG/2.5 ML VIAL INHALATION ×3 (01:19→21:05)
[2021-01-29 04:53] LABS: Estimated CRCL calculation 33 ml/min; Estimated Glomerular Filt Rate 27
[2021-01-29 08:11] LABS: Glucose Point of Care 169 (65-105)
--- NOTE | 2021-01-29 09:12 | PM.PNPUL ---
Progress Note: A&P Assessment and Plan (1) COPD (chronic obstructive pulmonary disease): Code(s): J44.9 - Chronic obstructive pulmonary disease, unspecified Status: Chronic Assessment and Plan: 01/28 Patient with a history of tobacco use and COPD with FEV1 of 2.07 L, 69% predicted on 08/26/2018, mild centrilobular emphysema on his CT scan 01/27/2021 with high peak hypoxemia on 6 L oxygen at home 16/06, pulmonary hypertension with an pulmonary artery systolic pressure of 44 on echo 05/05/2020. He has no hypercarbia on previous blood gases from 03/19/2019 were pH of 7.36/43/69 on 6 L nasal cannula. ABG on 05/03/2020 was pH 7.36/48/71 on 6 L nasal cannula. Maintained on incruse ellipta 1 puff Q day. Patient has no change in his phlegm, no wheezing, and minimal change in his chronic shortness of breath. I do not feel this is a COPD exacerbation and recommend continuing his daily dose of prednisone 10 mg p.o. q.day and place him on ipratrotrium Q 4 hours while awake. I do not see need for systemic steroids at this point. patient does state that he had a fever at home and he had a leukocytosis. I agree with vanc Zosyn and azithromycin empirically while awaiting cultures. His SARS-CoV-2 test and his influenza swab are negative. 01/29 states his breathing is close to baseline he is just so weak. No wheezes today, continue ipratroprium 0.5 Q 4 neb for now, prednsone 10 Q day. Emperica vanco, zosyn and azithro started 01/27. Cultures negative. (2) Congestive heart failure: Qualifiers: Heart failure chronicity: acute on chronic Heart failure type: systolic Qualified Code(s): I50.23 - Acute on chronic systolic (congestive) heart failure Code(s): I50.9 - Heart failure, unspecified Status: Chronic Assessment and Plan: 01/28 Patient has a history of ischemic cardiomyopathy with an EF of 35-40 on his last echocardiogram 05/05/2020. Patient presents with edema, elevated BNP and evidence of congestion on his CT scan. I agree with aggressive diuresis as tolerated by his cardiac and renal function. 01/29 Management of diuresis per hospitalist and larry operator sai is complicated by acute renal failure. (3) Obstructive sleep apnea: Code(s): G47.33 - Obstructive sleep apnea (adult) (pediatric) Status: Chronic Assessment and Plan: 01/28 patient has a history of obstructive sleep apnea on BiPAP with 6 L bleed in at night. Patient does not know his BiPAP settings at this time. I have instructed patient to have his family bring in his home BiPAP unit so that he can use this in the hospital. Patient stated that he slept with CPAP 15 last night and this felt very comfortable for him. If his family is unable to bring his BiPAP machine in today I will continue CPAP 15 with oxygen bleed in to maintain saturations greater than 90 red and then try to gas at his BiPAP settings. Later in day had increased WOB and discussed with respiratory therapy and pateint felt that hospital machine at 12/6 felt like his home settings so he was placed on this. 01/29 wore BiPAP rate 14, 12/6, FIO2 45% overnight. States these setting were good. Saturations 93%. Will attempt to get download from his [employer] today. Family to try and bring in his home machine later today. (4) Interstitial lung disease: Code(s): J84.9 - Interstitial pulmonary disease, unspecified Status: Acute Assessment and Plan: 01/28 Regarding interstitial lung disease this was noticed on his 1st CT scan of the chest from 01/13/2010 with dependent ground-glass and reticular opacities in the upper and lower lobes. High-resolution CT scan on 08/11/2018 showed diffuse lung disease with mild emphysema and peripheral based ground-glass infiltrates in superior segment of left lower lobe in the right lower lobe now with honeycombing in these areas. CT scan on 01/27/2021 shows minimal change from 2018 with continued interstitial infiltrates an
[2021-01-29] MEDS: ENOXAPARIN 40 MG/0.4 ML SYRINGE SUB-Q (09:48)
[2021-01-29] MEDS: predniSONE 10 MG TABLET PO (09:48)
[2021-01-29] MEDS: allopurinoL 100 MG TABLET PO ×2 (09:48→18:38)
[2021-01-29] MEDS: ASPIRIN 81 MG ENTERIC TABLET PO (09:49)
[2021-01-29] MEDS: GABAPENTIN 400 MG CAPSULE PO ×3 (09:50→18:38)
[2021-01-29] MEDS: FUROSEMIDE INJ 100 MG/10 ML VIAL 60 MG IV PUSH (10:18)
[2021-01-29 12:45] LABS: Glucose Point of Care 224 (65-105)
--- NOTE | 2021-01-29 12:45 | PM.IMPN ---
Progress Note: A&P Assessment and Plan (1) Acute and chronic respiratory failure: Code(s): J96.20 - Acute and chronic respiratory failure, unspecified whether with hypoxia or hypercapnia Status: Acute Assessment and Plan: Patient uses 6L O2 NC at home and uses home BiPAP as well. Currently at 10L O2 HFNC. Chest CTA showing no PE, interlobular septal thickening with basilar honeycombing and ILD. Probable pulmonary edema as well. COVID and influenza negative. CXR today showing stable diffuse lung disease. Consider CHF exacerbation, COPD exacerbation, PNA or some combination complicated by his COPD/JENNIE/ILD/Chronic resp failure. Continue nebs and abx with adjustments. Hold Lasix and ACEI due to YANELIS. (2) Cellulitis: Qualifiers: Laterality: right Site of cellulitis: extremity Site of cellulitis of extremity: upper extremity Qualified Code(s): L03.113 - Cellulitis of right upper limb Code(s): L03.90 - Cellulitis, unspecified Status: Acute Assessment and Plan: Right upper arm edematous and tender but ROM reasonable so feel septic arthritis less likely. Xrays negative for fracture. CT right arm pending. Adjust abx. Keep elevated. Check doppler. CT right arm showing edema but no fracture. Also showed LLL airspace disease and ILD. (3) Acute exacerbation of CHF (congestive heart failure): Code(s): I50.9 - Heart failure, unspecified Status: Acute Assessment and Plan: Echo April 2020 showing EF 35-40% with Grade I diastolic dysfunction. Suspect patient with CHF exacerbation. As above. (4) YANELIS (acute kidney injury): Code(s): N17.9 - Acute kidney failure, unspecified Status: Acute Assessment and Plan: Baseline is 1-1.2 range in October 2020. Creatinine 1.6 on admission and has climbed to 2.4. Patient did have a contrast study 01/27/2021. Will check renal ultrasound and urine studies. Scruggs in place for accurate I/Os. Monitor UOP. Adjust abx since current combination can cause renal failure. Hold Lasix. Consider IV fluids. (5) COPD (chronic obstructive pulmonary disease): Code(s): J44.9 - Chronic obstructive pulmonary disease, unspecified Status: Chronic Assessment and Plan: Patient still with increased O2 requirement. Continue Atrovent. As above. (6) DM2 (diabetes mellitus, type 2): Code(s): E11.9 - Type 2 diabetes mellitus without complications Status: Chronic Assessment and Plan: A1c 7.7. The patient's blood glucose was reviewed on 01/29 Morning glucose 150, 169 but higher later in the day. Continue AccuCheks covering with sliding scale. Hypoglycemia protocol available as needed. Continue current medications. Add mealtime insulin. (7) HTN (hypertension) with goal to be determined: Code(s): I10 - Essential (primary) hypertension Status: Chronic Assessment and Plan: Patient's blood pressure was reviewed on 01/29 Blood pressure remains well controlled, even soft at times. Will continue current medications with metoprolol but hold Lisinopril. (8) Obstructive sleep apnea: Code(s): G47.33 - Obstructive sleep apnea (adult) (pediatric) Status: Chronic Assessment and Plan: ABG on admission showing 7.47/45/77 on 6L. Patient tolerating BiPAP. Continue the same (9) Ischemic cardiomyopathy: Code(s): I25.5 - Ischemic cardiomyopathy Status: Acute Assessment and Plan: Echo April 2020 showing EF 35-40% with Grade I diastolic dysfunction. [place] to be ischemic. As above. (10) DVT prophylaxis: Code(s): Z29.9 - Encounter for prophylactic measures, unspecified Status: Acute Assessment and Plan: Lovenox Subjective Date/time seen: 01/29/21 12:45 Interval history: Date of service 01/29 65yo male with COPD and chronic respiratory failure on 6L here for SOB and GNW. Assuming care. Chart reviewed. Inf
[2021-01-29] MEDS: INSULIN ASPART (*BKC) 100 UNITS/ML SUB-Q ×2 (12:55→18:37)
--- NOTE | 2021-01-29 15:06 | PM.PNCARD ---
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 He enters the hospital with extreme weakness and inability to be on any of his medications for at least a few days as result he is moderately congested on arrival. Chest exam today is more more consistent with pulmonary congestion that is with volume overload on physical exam at least. We will keep IV furosemide going for at least another day I suppose and then shifted back to oral regimen tomorrow. Maikol Rosado MD [facility] Subjective Date/time seen: 01/29/21 15:06 Interval history: Follow-up visit in this 65-year-old man with: Ischemic heart disease/ischemic cardiomyopathy and extreme weakness with which he was unable to be on any of his medications for several days at least. Patient presented with a picture of some volume overload and congestive looking chest x-ray. Heart failure medications have been resumed he is now receiving intravenous furosemide. Concern regarding COVID on admission he has swab was negative. Patient resting flat in bed when I walked in the room to see him upon awakening he states he still mildly short of breath no other complaints to was resting and sleeping without any distress again upon entering the room Exam Const: General: comfortable and no acute distress Other: Obese white male as detailed above HENMT: Mouth: Yes moist mucous membranes Eyes: Sclera: sclerae normal Pupils: Equal, round and reactive pupils present Neck: Neck: supple Other: No carotid bruits JVD difficult to assess given his body habitus Resp: Effort & Inspection: normal respiratory effort Other: Coarse rhonchorous breath sounds bilaterally Cardio: Rate: regular rate Rhythm: regular rhythm GI: GI Palp: Yes Soft to palpation Auscultation: normal bowel sounds Neuro: Cognition (Neuro): normal cognition Extrem: Other: Minimal if any lower extremity edema Objective Data Vital Signs Vital Signs: Vital Signs - 24 hr 01/28/21 15:18 01/28/21 16:00 01/28/21 16:54 Temperature 36.9 C Pulse Rate 107 H 106 H Respiratory Rate 22 H Blood Pressure 97/66 L Pulse Oximetry 94 96 97 01/28/21 17:30 01/28/21 18:00 01/28/21 19:02 Temperature 36.6 C Pulse Rate 104 H 106 H Respiratory Rate 24 H Blood Pressure 98/64 L Pulse Oximetry 92 93 01/28/21 19:32 01/28/21 19:41 01/28/21 20:00 Temperature Pulse Rate 106 H 105 H 104 H Respiratory Rate 24 H 24 H Blood Pressure Pulse Oximetry 92 01/28/21 21:59 01/28/21 22:00 01/28/21 23:55 Temperature 37.6 C Pulse Rate 108 H 107 H 103 H Respiratory Rate 23 H 20 Blood Pressure 98/63 L Pulse Oximetry 93 92 01/29/21 00:00 01/29/21 01:19 01/29/21 01:21 Temperature Pulse Rate 101 H 103 H 104 H Respiratory Rate 22 H 22 H Blood Pressure Pulse Oximetry 93 01/29/21 01:30 01/29/21 02:00 01/29/21 04:00 Temperature 37.2 C Pulse Rate 104 H 104 H 97 Respiratory Rate 24 H 21 H Blood Pressure 102/61 Pulse Oximetry 92 01/29/21 06:00 01/29/21 08:19 01/29/21 08:45 Temperature 36.5 C Pulse Rate 97 96 100 Respiratory Rate 22 H 20 Blood Pressure 98/60 L Pulse Oximetry 100 92 01/29/21 08:56 01/29/21 09:09 01/29/21 10:07 Temperature Pulse Rate 103 H 96 Respiratory Rate 20 Blood Pressure 99/64 L 91/58 L Pulse Oximetry 01/29/21 11:49 Temperature 35.8 C L Pulse Rate 102 H Respiratory Rate 20 Blood Pressure 104/44 L Pulse Oximetry 94 Intake/Output Intake/Output: Intake & Output 01/26/21 01/27/21 01/28/21 01/29/21 23:59 23:59 23:59 23:59 Intake Total 1040 1190 580 Output Total 1000 1000 350 Balance 40 190 230 Meds/Results Medications: Active Medications Generic Name Dose Route Start Last Admin Trade Name Freq PRN Reason Stop Dose Admin Acetaminophen 650 mg 01/27/21 13:42
[2021-01-29 17:16] LABS: Glucose Point of Care 222 (65-105)
[2021-01-29] MEDS: INSULIN ASPART (*BKC) 100 UNITS/ML 8 UNITS SUB-Q (18:37)
[2021-01-29] MEDS: INSULIN GLARGINE (*BKC) 100 UNITS/ML 15 UNITS SUB-Q (20:15)
[2021-01-29] MEDS: ATORVASTATIN 20 MG TABLET PO (20:16)
[2021-01-29 20:21] LABS: Glucose Point of Care 219 (65-105)
[2021-01-29] MEDS: ALBUTEROL SULFATE NEB 2.5 MG/0.5 ML INH INHALATION (21:05)
[2021-01-29 21:44] LABS: Creatinine Urine 222.8 mg/dL
[2021-01-29 21:52] LABS: Sodium Urine Random 9 meq/L
[2021-01-29 23:30] LABS: Vancomycin Trough 10.9 ug/mL (10.0-20.0)
[2021-01-30] VITALS (21 sets, daily range): BP systolic 90–103; BP diastolic 39–61; PULSE 96–107; RESP 21–27; TEMP 35.6–36.9; O2SAT 78–100
--- NOTE | 2021-01-30 | ECHO_ITS ---
Patient Info Name: Sam Stephen Age: 65 years : 1955 Gender: Male Ht: 67 in Wt: 246 lbs BSA: 2.35 m2 BP: 102 / 61 mmHg Heart Rhythm: Sinus Rhythm Technical Quality: Poor Exam Date: 01/30/2021 8:49 AM Exam Location: [facility] Patient Status: Inpatient Admit Date: 01/27/2021 Staff Ordering Physician: Maikol Birch MD [employer] Preparation Supervisor: Bertha Diaz RDCS Attending Provider: Maciej Stephens MD Referring Physician: Eyal SCHULZ; Exam Type: CA echo dop bubble study w con Study Info Indications - HYPOXIA Complete two-dimentional, color flow and Doppler transthoracic echocardiogram is performed with agitated saline and with contrast to opacify the left ventricle and to improve the delineation of the left ventricle endocardial borders. Contrast/Agitated Saline Contrast/Ag. Saline: Definity Amount: 1.00 ml Administered By: Dionne Dimas RN Existing IV Access: Yes IV Access Condition: patent with no signs of infiltration Contrast/Ag. Saline: Agitated Saline Amount: 30.00 ml Administered By: Dionne Dimas RN Existing IV Access: Yes IV Access Condition: patent with no signs of infiltration Reason for Poor Study: poor echocardiographic windows Summary 1. Left ventricular chamber dimension is severely enlarged. 2. Left ventricular systolic function is severely reduced, estimated at 20-25%. 3. There is no increased left ventricular wall thickness. 4. The left ventricular diastolic function is abnormal. 5. The basal anteroseptal, basal inferolateral wall, and mid inferolateral wall are akinetic. 6. The apex, inferior wall, inferoseptal wall, anterolateral wall, mid anterior wall, and mid anteroseptal are hypokinetic. 7. Right ventricular chamber dimension is moderately enlarged. 8. Right ventricular systolic function is reduced. 9. Left atrial chamber dimension is mildly enlarged. 10. Right atrial chamber dimension is moderately enlarged. 11. Intact interatrial septum visualized by agitated saline imaging. 12. There is mild aortic valve stenosis with a peak velocity of 262 cm/s, mean gradient of 11 mmHg, and aortic valve area of 1.9 cm2. 13. There is moderate aortic valve calcification. 14. There is mild mitral valve regurgitation. 15. There is mild tricuspid valve regurgitation. 16. Moderate pulmonary hypertension, estimated pulmonary arterial systolic pressure is 57 mmHg. Left Ventricle Left ventricular chamber dimension is severely enlarged. Left ventricular systolic function is severely reduced, estimated at 20-25%. There is no increased left ventricular wall thickness. The left ventricular diastolic function is abnormal. The basal anteroseptal, basal inferolateral wall, and mid inferolateral wall are akinetic. The apex, inferior wall, inferoseptal wall, anterolateral wall, mid anterior wall, and mid anteroseptal are hypokinetic. The basal anterior wall is not scored. Right Ventricle Right ventricular chamber dimension is moderately enlarged. Right ventricular systolic function is reduced. Left Atria Left atrial chamber dimension is mildly enlarged. Right Atria Right atrial chamber dimension is moderately enlarged. Atrial Septum Intact interatrial septum visualized by agitated saline imaging. Aortic Valve The aortic valve is bicuspid. There is mild aortic valve stenosis with a peak velocity of 262 cm/s, mean gradient of 11 mmHg, and aorti
[2021-01-30] MEDS: ZOLPIDEM TARTRATE (*CRX) 5 MG TABLET 10 MG PO (00:20)
[2021-01-30] MEDS: IPRATROPIUM BR 0.02% INH SOLN 0.5 MG/2.5 ML VIAL INHALATION ×3 (03:13→14:05)
[2021-01-30] MEDS: ALBUTEROL SULFATE NEB 2.5 MG/0.5 ML INH INHALATION ×3 (03:13→14:05)
[2021-01-30 04:59] LABS: Basophils Percent Auto 0.2 % (0.2-1.2); Eosinophils Percent Auto 0.1 % (0-4.4); Hematocrit 32.9 % (42.0-52.0); Hemoglobin 10.2 g/dL (14.0-18.0); Immature Granulocyte Absolute 0.25 K/mm3 (0.00-0.031); Immature Granulocyte Percent A 1.4 % (0-0.5); Lymphocytes Percent Auto 8.7 % (18.3-44.2); Mean Corpuscular Hemoglobin 31.1 pg (26-34); Mean Corpuscular Volume 100.3 fl (80-100); Mean Platelet Volume 11.5 fl (7.4-10.4); Monocytes Absolute Auto 1.5 K/mm3 (0.1-0.6); Monocytes Percent Auto 8.6 % (2.6-8.5); Nucleated Red Blood Cells Absolute Auto 0.1 K/mm3 (0.0-0.012); Nucleated Red Blood Cells Perc 0.5 % (0.0-0.2); Platelet Count Result 193 k/mm3 (150-375); Red Blood Count 3.28 M/mm3 (4.6-6.20); White Blood Count 17.3 K/mm3 (4.5-10.0)
[2021-01-30 05:14] LABS: Complement C3 135 mg/dL (88-165)
[2021-01-30 05:43] LABS: Alanine Aminotransferase 146 U/L (4-50); Albumin Level 3.5 g/dL (3.5-5.1); Alkaline Phosphatase 163 U/L (38-126); Anion Gap 6 mmol/L (8-16); Aspartate Amino Transferase 304 U/L (17-59); Bilirubin,Total 0.8 mg/dL (0.2-1.3); Blood Urea Nitrogen 85 mg/dL (9-20); Calcium 8.1 mg/dL (8.4-10.2); Carbon Dioxide 35 mmol/L (22-30); Chloride 94 mmol/L (98-107); Creatine Kinase 2642 U/L (55-170); Estimated CRCL calculation 26 ml/min; Estimated Glomerular Filt Rate 20; Glucose 210 mg/dL (75-110); Phosphorus 6.9 mg/dL (2.5-4.5); Potassium 4.5 mmol/L (3.4-5.0); Sodium 135 mmol/L (137-145)
[2021-01-30 06:19] LABS: CRP 44.1 mg/dL (<1.0)
[2021-01-30 08:05] LABS: Glucose Point of Care 195 (65-105)
[2021-01-30 09:22] LABS: Folic Acid > 20.0 ng/mL (2.76->20)
--- NOTE | 2021-01-30 10:01 | PM.CNNEP ---
Assessment and Plan Assessment and plan (1) YANELIS (acute kidney injury): Code(s): N17.9 - Acute kidney failure, unspecified Status: Acute (2) Acute exacerbation of CHF (congestive heart failure): Code(s): I50.9 - Heart failure, unspecified Status: Acute (3) Acute and chronic respiratory failure: Code(s): J96.20 - Acute and chronic respiratory failure, unspecified whether with hypoxia or hypercapnia Status: Acute (4) Ischemic cardiomyopathy: Code(s): I25.5 - Ischemic cardiomyopathy Status: Acute Additional Plan Sam appears to have suffered a significant insult on his kidneys as evidence by his labs on admission and by labs this morning. Unfortunately, this is further complicated by his hypotension and clear evidence volume overload with a diminished urine output. The acute insult to his kidneys is likely multifactorial and probably stems from renal hypoperfusion due to his depressed ejection fraction / cardiomyopathy on top of the fact that he was on medications prior to admissions that could have worsened his kidney function in conjunction with the IV contrast/ dye that he received for the CT scan of his chest on admission as well. Given his deteriorating volume status as well as his encephalopathy, I suspect the next step in management if he fails continue conservative therapy to date would be renal replacement therapy / dialysis. I did try to discuss this with the patient but given his confusion I am not entirely sure how much she understood. Never last, he did seem to indicate to me that he did not want to be intubated or placed on mechanical ventilation or for that matter do dialysis as well. I discussed the case with Dr. Bunn as well as Dr. Freed -- Dr. Bunn is going to attempt to get hold of family to discuss long-term goals of therapy particularly given the patient's refusal for mechanical ventilation as well as dialysis which somewhat limits our options of therapy at this point time. Greater than 20 min was spent in detailed review of his electronic medical records, discussion with other physicians and nurses involved in his care, as well as attempted to discuss the patient's medical issues/ problems the patient is although this was somewhat limited by his altered mental status. I will continue follow patient with you while remains hospitalized make further recommendations during his hospital course. Thank you for allowing me to participate in care this patient. History of Present Illness Reason for Consult Consult date: 01/30/21 Reason for consult: acute renal failure Chief Complaint Chief complaint: Acute on Chronic CHF,Generalized Weakness,PUI COVI History of Present Illness Narrative: Most of the information I have obtained is from discussion with other physicians and nursed involved in his care as the patient is unable to provide me with much history. The patient is 65 year old male with a past medical history as outlined below who presented to [facility] ER with complaints of generalized weakness. For the last 2 days, he has been sitting in his recliner. He has been unable to get up due to generalized weakness. She has not been able to take his medications. He complains of right arm pain and right arm swelling. He denies chest pain or worsening shortness of breath. He does report a mild cough. He has increased swelling to right arm and right leg. Work-up and evaluation in the ER demonstrated signs/symptoms of heart failure in association with fever. There was some concern that he had an early form of cellulitis but given his tenuous respiratory status in conjunction with the congestive heart failure, he was admitted the hospital for further evaluation and therapy. In the last 24 hr, the patient's condition has deteriorated significantly. He is now in cephalad Ap and in respiratory distress requiring BiPAP therapy to maintain his oxygen saturations.
--- NOTE | 2021-01-30 10:11 | PM.PNPUL ---
Progress Note: A&P Assessment and Plan (1) COPD (chronic obstructive pulmonary disease): Code(s): J44.9 - Chronic obstructive pulmonary disease, unspecified Status: Chronic Assessment and Plan: 01/28 Patient with a history of tobacco use and COPD with FEV1 of 2.07 L, 69% predicted on 08/26/2018, mild centrilobular emphysema on his CT scan 01/27/2021 with high peak hypoxemia on 6 L oxygen at home 16/06, pulmonary hypertension with an pulmonary artery systolic pressure of 44 on echo 05/05/2020. He has no hypercarbia on previous blood gases from 03/19/2019 were pH of 7.36/43/69 on 6 L nasal cannula. ABG on 05/03/2020 was pH 7.36/48/71 on 6 L nasal cannula. Maintained on incruse ellipta 1 puff Q day. Patient has no change in his phlegm, no wheezing, and minimal change in his chronic shortness of breath. I do not feel this is a COPD exacerbation and recommend continuing his daily dose of prednisone 10 mg p.o. q.day and place him on ipratrotrium Q 4 hours while awake. I do not see need for systemic steroids at this point. patient does state that he had a fever at home and he had a leukocytosis. I agree with vanc Zosyn and azithromycin empirically while awaiting cultures. His SARS-CoV-2 test and his influenza swab are negative. He is DNR. 01/29 states his breathing is close to baseline he is just so weak. No wheezes today, continue ipratroprium 0.5 Q 4 neb for now, prednsone 10 Q day. Emperic vanco, zosyn and azithro started 01/27. Cultures negative. 01/30 Worsening SOB and oxygenation. No wheezes. (2) Congestive heart failure: Qualifiers: Heart failure type: systolic Heart failure chronicity: acute on chronic Qualified Code(s): I50.23 - Acute on chronic systolic (congestive) heart failure Code(s): I50.9 - Heart failure, unspecified Status: Chronic Assessment and Plan: 01/28 Patient has a history of ischemic cardiomyopathy with an EF of 35-40 on his last echocardiogram 05/05/2020. Patient presents with edema, elevated BNP and evidence of congestion on his CT scan. I agree with aggressive diuresis as tolerated by his cardiac and renal function. 01/29 Management of diuresis per hospitalist and mechanical inspector sai is complicated by acute renal failure. 01/30 Remains fluid overloaded with acute renal failure,nephrology and cardoiology on case. Milrinone started. (3) Obstructive sleep apnea: Code(s): G47.33 - Obstructive sleep apnea (adult) (pediatric) Status: Chronic Assessment and Plan: 01/28 patient has a history of obstructive sleep apnea on BiPAP with 6 L bleed in at night. Patient does not know his BiPAP settings at this time. I have instructed patient to have his family bring in his home BiPAP unit so that he can use this in the hospital. Patient stated that he slept with CPAP 15 last night and this felt very comfortable for him. If his family is unable to bring his BiPAP machine in today I will continue CPAP 15 with oxygen bleed in to maintain saturations greater than 90 red and then try to gas at his BiPAP settings. Later in day had increased WOB and discussed with respiratory therapy and pateint felt that hospital machine at 12/6 felt like his home settings so he was placed on this. 3 wore BiPAP rate 14, 12/6, FIO2 45% overnight. States these setting were good. Saturations 93%. Will attempt to get download from his DME company today. Family to try and bring in his home machine later today. 3 wore BiPAP rate 14, 12/6, FIO2 50% overnight. States these setting were good. Saturations 93-95%. Will attempt to get download from his DME company today. Family to try and bring in his home machine later today. (4) Interstitial lung disease: Code(s): J84.9 - Interstitial pulmonary disease, unspecified Status: Acute Assessment and Plan: 01/28 Regarding interstitial lung disease this was noticed on his 1st CT scan of the chest from 01/13/2010 with dependent grou
--- NOTE | 2021-01-30 10:12 | PM.PNCARD ---
Progress Note: A&P Assessment and Plan (1) Acute exacerbation of CHF (congestive heart failure): Code(s): I50.9 - Heart failure, unspecified Status: Acute Assessment and Plan: Patient has decompensated CHF with reduced ejection fraction and worsening renal function. He is in respiratory failure from CHF and underlying COPD/interstitial lung disease. Currently on BiPAP. Bedside echocardiogram on my personal evaluation showed severe LV systolic dysfunction. Continue diuresis with furosemide. Patient will need inotropic support. Will initiate on Milrinone renal dose. May continue low-dose metoprolol succinate at this moment, however, if patient has additional decompensation and/or lowering of the blood pressure, then may have to hold beta-ibrahima. May add ARNI when renal function stabilizes. Patient is DNR, and his prognosis guarded. Plan discussed with primary team. (2) Interstitial lung disease: Code(s): J84.9 - Interstitial pulmonary disease, unspecified Status: Acute Assessment and Plan: BiPAP, supplemental oxygen. Management as per pulmonology and primary team. Subjective Date/time seen: 01/30/21 10:12 Date of service 01/30/2021-patient remains on BiPAP and supplemental oxygen. At the time of evaluation, patient was somnolent. Exam Narrative: Exam Narrative: PHYSICAL EXAMINATION: GENERAL: Somnolent, on BiPAP MENTAL STATUS: Somnolent EYES: Eyes closed EARS: External ears appear normal NOSE: On BiPAP MOUTH: On BiPAP NECK: Supple, JVD present CHEST: Global rhonchi HEART: Regular, S1-S2 audible ABDOMEN: Soft, nontender NEUROLOGICAL: Someone MUSCULOSKELETAL: no amputation EXTREMITIES: Mild edema with pigmentation in the lower extremities SKIN: Pigmentation lower extremities PSYCHIATRIC: Minimally responsive Objective Data Vital Signs Vital Signs: Vital Signs - 24 hr 01/29/21 11:49 01/29/21 12:00 01/29/21 14:00 Temperature 35.8 C L Pulse Rate 102 H 102 H 101 H Respiratory Rate 20 Blood Pressure 104/44 L Pulse Oximetry 94 94 01/29/21 16:00 01/29/21 17:40 01/29/21 18:00 Temperature 36.0 C L Pulse Rate 101 H 103 H 99 Respiratory Rate 24 H Blood Pressure 103/56 L Pulse Oximetry 94 96 01/29/21 19:22 01/29/21 20:00 01/29/21 21:05 Temperature 36.1 C L Pulse Rate 102 H 105 H 102 H Respiratory Rate 22 H 26 H Blood Pressure 101/51 L Pulse Oximetry 95 90 95 01/29/21 21:16 01/29/21 21:39 01/30/21 00:00 Temperature 36.4 C L Pulse Rate 103 H 105 H 103 H Respiratory Rate 24 H 24 H Blood Pressure 98/53 L Pulse Oximetry 97 01/30/21 01:57 01/30/21 03:13 01/30/21 03:23 Temperature Pulse Rate 101 H 99 104 H Respiratory Rate 24 H 24 H Blood Pressure Pulse Oximetry 95 01/30/21 03:44 01/30/21 04:00 01/30/21 06:00 Temperature 36.9 C Pulse Rate 103 H 100 Respiratory Rate 22 H Blood Pressure 101/52 L Pulse Oximetry 92 93 01/30/21 08:00 01/30/21 08:12 01/30/21 08:17 Temperature 36.2 C L Pulse Rate 100 103 H 97 Respiratory Rate 22 H 27 H Blood Pressure 103/55 L Pulse Oximetry 93 01/30/21 08:18 01/30/21 08:32 Temperature Pulse Rate 97 98 Respiratory Rate 24 H 22 H Blood Pressure Pulse Oximetry 93 Intake/Output Intake/Output: Intake & Output 01/27/21 01/28/21 01/29/21 01/30/21 23:59 23:59 23:59 23:59 Intake Total 1040 1190 1070 500 Output Total 1000 1000 825 450 Balance 40 190 245 50 Meds/Results Medications: Active Medications Generic Name Dose Route Start Last Admin Trade Name Freq PRN Reason Stop Dose Admin Acetaminophen 650 mg 01/27/21 13:42 Acetaminophen 325 Mg Tablet PO Q4H PRN Mild Pain (1-3) or Fever Hydrocodone Bitart/Acetaminophen 2 tab 01/27/21 13:42 01/27/21 21:25 Hydrocodone/Acetaminophen (*Crx) 5-325 Mg Tablet PO 2 tab Q4H PRN Administration Moderate Pain (4-6) Albuterol 2 puff 01/27/21 14:12 03/0
--- NOTE | 2021-01-30 10:48 | PCOTNOTE ---
Per RN, Patient not to be seen today due to a declined in medical status. Patient is unable to arouse.
--- NOTE | 2021-01-30 12:16 | PCPTNOTE ---
PT held per RN due to change in patient's medical status. PT will hold until further orders are received.
[2021-01-30 12:29] LABS: Glucose Point of Care 219 (65-105)
[2021-01-30] MEDS: EUCERIN CREAM 120 GM JAR 1 APPLIC TOPICAL (15:29)
[2021-01-30 17:11] LABS: Glucose Point of Care 202 (65-105)
--- NOTE | 2021-01-30 18:02 | PM.IMPN ---
Progress Note: A&P Assessment and Plan (1) Acute and chronic respiratory failure: Code(s): J96.20 - Acute and chronic respiratory failure, unspecified whether with hypoxia or hypercapnia Status: Acute (2) Cellulitis: Qualifiers: Laterality: right Site of cellulitis: extremity Site of cellulitis of extremity: upper extremity Qualified Code(s): L03.113 - Cellulitis of right upper limb Code(s): L03.90 - Cellulitis, unspecified Status: Acute (3) Acute exacerbation of CHF (congestive heart failure): Code(s): I50.9 - Heart failure, unspecified Status: Acute (4) YANELIS (acute kidney injury): Code(s): N17.9 - Acute kidney failure, unspecified Status: Acute (5) COPD (chronic obstructive pulmonary disease): Code(s): J44.9 - Chronic obstructive pulmonary disease, unspecified Status: Chronic (6) DM2 (diabetes mellitus, type 2): Code(s): E11.9 - Type 2 diabetes mellitus without complications Status: Chronic (7) HTN (hypertension) with goal to be determined: Code(s): I10 - Essential (primary) hypertension Status: Chronic (8) Obstructive sleep apnea: Code(s): G47.33 - Obstructive sleep apnea (adult) (pediatric) Status: Chronic (9) Ischemic cardiomyopathy: Code(s): I25.5 - Ischemic cardiomyopathy Status: Acute Additional Plan Multiple discussions with family members about options. Daughter understands clearly the patient's wishes which are no intubation and no dialysis. Daughter states the patient has always had these care instructions and that she will abide by them. Other family members were contacted and concurred with the daughters plan to keep the patient comfortable now. Patient himself was asked about comfort measures and he wishes to be kept comfortable now. He was confused but stated that he did not want intubation or dialysis. After the family had visited with the patient, they agreed to proceed with comfort measures. Medications were stopped and morphine drip was started. He will have morphine and Ativan available as needed as well. Comfort measures. Spiritual consult. Subjective Date/time seen: 01/30/21 18:02 Interval history: Date of service 01/30 65yo male with COPD and chronic respiratory failure on 6L here for SOB and GNW. Patietn arouses but unable to provide history. Did return to the room later in the day and patient was more awake but mildly confused. Asked if he would consent to intubation if required which he said no. Asked if he would consent to dialysis if needed but he again said no. Dtr was in the room at this time. Exam Narrative: Exam Narrative: AF 97.7 95/61 100 25 98% Gen - NARD with bipap in place Chest -coarse BS anteriorly CV - RRR with occasional extra beat; S1/S2 Abd - soft. Obese. Nontender. - Scruggs catheter secured draining clear yellow urine. Ext - No pedal edema. Right UE less erythematous but still warm to touch and still edematous Psych - somnolent but arouses; confused Skin - dry scaly skin bilateral LE with chronic venous stasis skin changes. RUE with fading pink erythema that is slightly warm to touch. Objective Data Vital Signs Vital Signs: Vital Signs - 24 hr 01/29/21 19:22 01/29/21 20:00 01/29/21 21:05 Temperature 96.9 F L Pulse Rate 102 H 105 H 102 H Respiratory Rate 22 H 26 H Blood Pressure 101/51 L Pulse Oximetry 95 90 95 01/29/21 21:16 01/29/21 21:39 01/30/21 00:00 Temperature 97.5 F L Pulse Rate 103 H 105 H 103 H Respiratory Rate 24 H 24 H Blood Pressure 98/53 L Pulse Oximetry 97 01/30/21 01:57 01/30/21 03:13 01/30/21 03:23 Temperature Pulse Rate 101 H 99 104 H Respiratory Rate 24 H 24 H Blood Pressure Pulse Oximetry 95 01/30/21 03:44 01/30/21 04:00 01/30/21 06:00 Temperature 98.4 F Pulse Rate 103 H 100 Respiratory Rate 22 H Blood Pressure 101/52 L Pulse Oximetry 92 93
[2021-01-30] MEDS: MORPHINE SULFATE (*CRX) 2 MG/ML INJ 4 MG IV PUSH (18:25)
[2021-01-30] MEDS: MORPHINE SULFATE INJ (*CRX) 50 MG in SODIUM CHLORIDE 0.9% IV 95 ML IV CONT (18:27)
[2021-01-30] MEDS: LORazepam INJ (*CRX) 2 MG/ML VIAL 1 MG IV PUSH (18:27)
--- NOTE | 2021-01-30 20:33 | PC.NURSE ---
patient at 1954. with comfort measures, family at bedside.
[2021-02-01 12:54] LABS: Complement Total CH50 >60 U/mL (31-60)
[2021-02-05 15:25] LABS: Eosinophil Urine None Seen % (None Seen)
--- NOTE | 2021-02-09 09:38 | PM.DDS ---
Discharge Sum: Prov Provider Primary care physician: GLADIS WAYNE, PHARMACY TECHNICIAN INPATIENT Admitting provider: Domenico Vergara MD Consults: 01/27/21 Consult to Physician Routine Comment: EXCHANGE NOTIFIED OF CONSULT Consulting Provider: Maikol Rosado call or contact centre coach/MD group to consult: cardiology Reason for consultation: congestive heart failure, elevated troponin Has provider been notified: Yes Consult to Physician Routine Comment: SPOKE WITH DR. MENENDEZ Consulting Provider: Adilson Menendez call or contact centre coach/MD group to consult: orthopedics Reason for consultation: right elbow pain and swelling Has provider been notified: Yes Consult to Physician Routine Comment: SPOKE WITH DR. BIRCH Consulting Provider: Maikol Birch call or contact centre coach/MD group to consult: pulmonary Reason for consultation: respiratory failure, pneumonia Has provider been notified: Yes 01/30/21 07:34 Consult to Physician Routine Comment: Consulting Provider: Emerita Branch call or contact centre coach/MD group to consult: nephrology Reason for consultation: yanelis Has provider been notified: Yes 01/30/21 16:11 Consult to Spiritual Care Services Routine Comment: Pronouncing clinician: Praveen Bunn Discharge Sum: Diag PCOD Acute respiratory failure and YANELIS Contributing Factors (1) Acute and chronic respiratory failure: (2) Cellulitis: (3) Acute exacerbation of CHF (congestive heart failure): (4) YANELIS (acute kidney injury): (5) COPD (chronic obstructive pulmonary disease): (6) DM2 (diabetes mellitus, type 2): (7) HTN (hypertension) with goal to be determined: (8) Obstructive sleep apnea: (9) Ischemic cardiomyopathy: Discharge Sum: Summary Date and Time Date of admission: 01/27/21 11:29 Date of : 01/30/21 Time of : 19:55 Summary Details: Patient admitted through the ED on 01/27 for SOB and weakness and found respiratory failure. Patient uses 6L O2 NC at home and uses home BiPAP as well. O2 requirement up to 10L O2 HFNC. Chest CTA showing no PE but interlobular septal thickening with basilar honeycombing and ILD. Probable pulmonary edema as well. COVID and influenza negative. Probably combination of CHF exacerbation and COPD exacerbation +/- PNA or some combination complicated by his COPD/JENNIE/ILD/Chronic respiratory failure. Treated with Lasix but held due to YANELIS. Multiple discussions with family members about options. Daughter understands clearly the patient's wishes which are no intubation and no dialysis. Patient himself was asked about comfort measures and he wishes to be kept comfortable. He was confused but stated that he did not want intubation or dialysis. After the family had visited with the patient, they agreed to proceed with comfort measures. Medications were stopped and morphine drip was started. He will have morphine and Ativan available as needed as well. Comfort measures institutes. Spiritual consult. Patient on 01/30/21. Additional Data Attending physician: Maciej Stephens MD
== END 2021-01-30 19:55 | disposition expired | DRG 291 ==
LOC: ANHED 11:36 → ANHIMU 12:06
PROVIDERS: Internal Medicine; Internal Medicine Pulmonary Disease; Admitting Provider Family Medicine; Emergency Provider General Practice; PCP Nurse Practitioner Family; Visit Provider Internal Medicine
DX: I11.0 Hypertensive heart disease with heart failure (principal); J96.21 Acute and chronic respiratory failure with hypoxia; J96.22 Acute and chronic respiratory failure with hypercapnia; J18.9 Pneumonia, unspecified organism; N17.9 Acute kidney failure, unspecified; L03.113 Cellulitis of right upper limb; J84.9 Interstitial pulmonary disease, unspecified; Z20.822 Contact with and (suspected) exposure to COVID-19; I50.43 Acute on chronic combined systolic (congestive) and diastolic (congestive) heart failure; J43.9 Emphysema, unspecified; I25.10 Atherosclerotic heart disease of native coronary artery without angina pectoris; G47.33 Obstructive sleep apnea (adult) (pediatric); E11.42 Type 2 diabetes mellitus with diabetic polyneuropathy; M1A.9XX0 Chronic gout, unspecified, without tophus (tophi); I25.5 Ischemic cardiomyopathy; Z66 Do not resuscitate; E66.9 Obesity, unspecified; Z68.39 Body mass index [BMI] 39.0-39.9, adult; I25.2 Old myocardial infarction; Z86.718 Personal history of other venous thrombosis and embolism; Z87.891 Personal history of nicotine dependence; Z99.81 Dependence on supplemental oxygen
CPT/HCPCS: 36415; 36600; 51701; 70450; 71045; 71275; 73090; 73130; 73200; 80053; 80202; 81001; 82375; 82550; 82565; 82570; 82607; 82746; 82805; 82948; 83036; 83050; 83605; 83735; 83880; 84100; 84300; 84484; 84550; 85025; 85380; 85610; 85730; 85999; 86140; 86160; 86162; 87040; 87804; 93005; 93971; 94002; 94003; 94640; 96365; 96367; 96368; 96375; 97110; 97162; 97166; 97530; 99285; A9270; C8929; C9803; J0131; J0456; J0696; J1650; J1815; J1940; J2060; J2270; J2543; J3370; J7512; Q9967; U0003; U0005